=== PATIENT | female | born 1930 | race Caucasian/White ===

== ENCOUNTER → 2016-12-28 | Outpatient (CLI) | payer MEDICARE, OTHER ==
[~2016-12-28] MED LIST: AMIO200T2 PO; AMLO5TAB PO; ASPI325T PO; CYCL32DR2 OP; FAMO40TA7 PO; FISH1CAP10 PO; HALO0.5T PO; HYDR12.530 PO; LEVO75TA9 PO; LISI-621 PO; OLAN2.5T3 PO; SENN-152 PO
== END ==
LOC: LABNH.A215 00:09
PROVIDERS: ATTEND Internal Medicine Cardiovascular Disease
DX: E61.2 Magnesium deficiency (principal)
CPT/HCPCS: 36415

== ENCOUNTER 2017-01-03 04:07 | Inpatient (IN) | payer MEDICARE, OTHER ==
[2017-01-03] VITALS (9 sets, daily range): BP systolic 137–150; BP diastolic 58–85; PULSE 43–66; RESP 12–21; TEMP 95.8–97.4; O2SAT 93–98; Ht 160 cm; Wt 64.0 kg
[~2017-01-03] VITALS: Ht 160 cm; Wt 64.0 kg
[~2017-01-03 04:07] MED LIST changes: -AMIO200T2 PO; -OLAN2.5T3 PO
[2017-01-03] MEDS ORDERED: OLANZAPINE 5 MG TABLET PO ONE (04:15)
--- NOTE | 2017-01-03 04:21 | NUR ---
BROTHER PT BROTHER HERE AT BEDSIDE
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
--- NOTE | 2017-01-03 04:32 | NUR ---
LAB LAB AT BEDSIDE FOR BLOOD DRAW
[2017-01-03 04:37] LABS: BASOPHILS % (AUTO) 0.2 % (0-2); EOSINOPHILS # (AUTO) 0.1 T/MM3 (0-0.5); EOSINOPHILS % (AUTO) 1.4 % (0-4); HGB - HEMOGLOBIN 12.5 GM/DL (12-16); IMMATURE GRANULOCYTE # (AUTO) 0.02 T/MM3 (0.00-0.03); IMMATURE GRANULOCYTE % (AUTO) 0.4 % (0.0-0.5); LYMPHOCYTES % (AUTO) 40.6 % (23-45); MEAN CORPUSCULAR HGB 31.9 UUG (26-34); MEAN CORPUSCULAR HGB CONC(MCHC 33.8 GM/DL (31-37); MEAN CORPUSCULAR VOLUME 94.4 UM3 (80-100); MEAN PLATELET VOLUME 10.4 UM3 (9.4-12.4); MONOCYTES # (AUTO) 0.4 T/MM3 (0-0.8); MONOCYTES % (AUTO) 7.3 % (0-9.0); NEUTROPHILS #(AUTO)-ABSOLUTE 2.5 T/MM3 (1.8-7.7); NEUTROPHILS % (AUTO) 50.1 % (33-66); RED BLOOD COUNT 3.92 M/MM3 (4.00-5.20)
[2017-01-03] MEDS ORDERED: AMIO200T2 PO (04:45)
[2017-01-03 04:47] LABS: ACETAMINOPHEN < 10 UG/ML (10-30); ALBUMIN 3.7 G/DL (3.5-5.0); ALBUMIN/GLOBULIN RATIO 1.4 RATIO (1.1-2.2); ALKALINE PHOSPHATASE 154 U/L (38-126); ALT (SGPT) 77 U/L (9-52); ANION GAP 4 MEQ/L (5-15); AST (SGOT) 47 U/L (14-36); BUN/CREATININE RATIO 19 RATIO (6-26); CALCIUM 8.7 MG/DL (8.4-10.2); CHLORIDE 108 MEQ/L (98-107); CO2 - CARBON DIOXIDE 29 MEQ/L (22-30); CREATININE 1.3 MG/DL (0.7-1.2); ETHANOL <10 MG/DL (<10); GLOMERULAR FILTRATION RATE 39; GLUCOSE 98 MG/DL (65-110); POTASSIUM 4.6 MEQ/L (3.6-5); SALICYLATE 2.9 MG/DL (2-20); SODIUM 141 MEQ/L (134-144); TOTAL PROTEIN 6.4 G/DL (6.3-8.2)
--- NOTE | 2017-01-03 04:53 | NUR ---
STATUS PT IS LAYING ON THE CART WITH EYES CLOSED PT IS COOPERATIVE, BUT UPSET SHE IS HERE BROTHER REMAINS AT BEDSIDE
--- NOTE | 2017-01-03 04:56 | NUR ---
SCREENING [facility] STAFF HERE TO SCREEN PT
--- NOTE | 2017-01-03 05:10 | NUR ---
MED PT GIVEN PO ZYPREXA WITH WATER TAKES MED EASILY BROTHER REMAINS AT BEDSIDE
--- NOTE | 2017-01-03 05:12 | NUR ---
COMFORT WHEN ASKED PT IF SHE COULD URINATE FOR LAB SPEC SHE TOLD STAFF "NOT RIGHT NOW" WHEN ASKED IF SHE WOULD BE WILLING TO TRY SHE REPEATED THE "NOT RIGHT NOW" IN A MUCH FIRMER VOICE. LIGHTS DIMMED AND OFFERED PT SECOND BLANKET, BUT STATES ONE IS FINE
--- NOTE | 2017-01-03 05:20 | NUR ---
REST PT RESTING QUIETLY WITH EYES CLOSED
[2017-01-03 05:33] LABS: THYROID STIM HORMONE-TSH 2.92 MIU/L (0.47-4.68)
[2017-01-03] MEDS ORDERED: OLAN2.5T3 PO (05:50)
--- NOTE | 2017-01-03 05:56 | NUR ---
REST PT CONTINUES TO REST QUIETLY WITH EYES CLOSED RESP EVEN AND UNLABORED
--- NOTE | 2017-01-03 06:04 | NUR ---
REPORT REPORT GIVEN TO SIMA
--- NOTE | 2017-01-03 08:02 | NUR ---
UPDATE [facility] HAS ACCEPTED THE PATIENT. WAITING FOR ROOM ASSIGNMENT. BROTHER JUST LEFT, ASKED TO BE CALLED THEN PT MOVED TO THE ROOM. PT RESTING, ASLEEP, CALL LIGHT IN REACH, VITAL SIGNS NOTED.
--- NOTE | 2017-01-03 08:34 | NUR ---
TRANSFER HOUSE SUP MOVING PT TO [facility] AT THIS TIME.
--- NOTE | 2017-01-03 08:35 | NUR ---
ADMISSION NOTE 86 year old female was admitted to [facility] unit today at 0835 to room 195 from [facility], she lives in [place]. Patient arrived via WC by [facility] staff, family was not present during admission. Pt was unsteady had a weak gait, during transfer, would not open her eyes all the way, appeared lethargic. Pt is AO x 2, speech is mumble and difficult to understand. Patient is dressed appropriate for season, cleaned and well groomed. Pt has glasses and hearing aids bilateral. Pt has her own walker. Pt has a flat affect. Pt states reason for admission " I dint know i was coming to the hospital." Pt has been in our unit in the month of November.
--- NOTE | 2017-01-03 10:05 | NUR ---
brother called brother, updated information that pt was moved to [facility] unit.
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
--- NOTE | 2017-01-03 11:48 | GENHPPDOC ---
[facility] HPI 01/03/17 Time of Service: 11:15 Start Time: 11:15 Stop Time: 11:45 >50% of this visit spent in counseling/coordination care. Chief Complaint: "Im tired History of Present Illness HPI: 86 y/o CF with a hx of dementia who was recently on the [facility] unit from 12/05/16 until 12/14/16. At that time pt was diagnosed with Delirium and probable dementia and was placed on Haldol. Pt was recently put on Amiodarone by her pleat taper and her Haldol was stopped due to fear of drug interactions. Over the last few days the pt has become increasingly paranoid and delusional and has been having visual hallucinations. It seems in the past the PRN Haldol had kept these symptoms fairly well controlled. Pt was given Zyprexa in the ED at around 0400. On face to face the pt is resting in bed. She is hard to awake and is not able to participate in the interview. PT is alert and oriented to self. She states she knows she is in the hospital but is not able to answer any other orientation questions. She denies any pain. PSYCH ROS: Unable to obtain at this time. According to report the pt has been increasingly paranoid with VH over the last couple of days since stopping PRN Haldol. Past Medical History Past Medical History Restless legs CAD HTN Fibromyalgia Hypothyroid Surgical History Patient's Surgical History: CABG 2001 CEA 2011 cholecystectomy DANY hemorrhoid surg vein stripping (?) Current Medications Home Meds Active Scripts Olanzapine (Zyprexa) 2.5 Mg Tablet, 1 TAB PO HS, #30 TAB 1 Refill Prov:ANGELA GARCIA MD 01/03/17 Reported Medications Amiodarone HCl (Amiodarone HCl) 200 Mg Tablet, 200 MG PO DAILY, TAB 01/03/17 Lisinopril (Lisinopril) 20 Mg Tablet, 20 MG PO DAILY for HYPERTENSION 12/17/16 [place]-3 Fatty Acids/Fish Oil (Fish Oil Concentrate Softgel) 1 Each Capsule, 1 CAP PO BID 12/17/16 Sennosides/Docusate Sodium (Senna Plus Tablet) 1 Tab Tablet, 1 TAB PO BID 12/17/16 Famotidine (Famotidine) 40 Mg Tablet, 40 MG PO DAILY for Antacid 12/02/16 Aspirin (Aspirin) 325 Mg Tablet, 325 MG PO HS for Anticoagulation 12/02/16 Cyclosporine (Restasis) 32 Ea [place], 1 DROP OP BID for Eye irritation/ dryness 09/07/13 Levothyroxine Sodium (Levothyroxine Sodium) 75 Mcg Tablet, 75 MCG PO DAILY for Hypothyroidism 09/07/13 Amlodipine (Norvasc) 5 Mg Tablet, 5 MG PO DAILY for INCREASED BLOOD PRESSURE, TAB 09/07/13 Allergies: Coded Allergies: Nitrofurantoin Macrocrystal (Verified Allergy, Unknown, 01/03/17) nitrofurantoin (Verified Allergy, Unknown, 01/03/17) Family History Family History: Unable to obtain due to mental status changes. Vaccines July Social History Smoking Status: Never smoker Does patient use chewing tobac: No Second Hand Exposure: No Substance Use Type: does not use Alcohol Intake: none Marital Status: Housing: senior care Advance Directives: Yes Full Code Review of Systems Unable to Obtain ROS Due to: clinical condition Generations Exam Vitals Vital Signs Date Time Temp Pulse Resp B/P Pulse Ox O2 Delivery O2 Flow Rate FiO2 01/03/17 08:34 97.8 58 18 154/77 97 Room Air Physical examination performed by the hospitalist. Height (Feet): 5 Height (Inches): 3.00 Mental Status Exam Muscle Strength/Tone: Weak Dressing: Casual Grooming: Fair Attitude: Cooperative Motor Activity: Retardation Eye Contact: Fair Speech: Slowed Volume: Soft Rhythm: Slurred Sensory: Alert Orientation: Oriented to person Mood: Neutral Affect: Congruent Rate of Thoughts: Delayed Thought Organization: [place] Associations: Loose-associations Abstract Reasoning: Impaired, concrete Thought Content: Delusions Perception/Psychotic: Psychotic Current Hallucinations: Visual Attention Span/Concentration: Inattentive Fund of Knowledge: Poor fund of knowledge Memory: Poor-immediate, Poor-recent Suicidal Ideation: None Homicidal Ideation: None Insight: Poor Judgment: Poor Impulse Control: Poor Laboratory Tests Test 01/03/17 04:32 White Blood Count 5.0T/MM3 Red Blood Count 3.92M/MM3 Hemoglobin 12.5GM/DL Hematocrit 37.0% Mean Corpuscular Volume 94.4UM3 Mean Corpuscular Hemoglobin 31.9UUG Mean Corpuscular Hemoglobin Concent 33.8GM/DL RDW Standard Deviation 48.8FL Platelet Count 147T/MM3 Mean Platelet Volume 10.4UM3 Immature Granulocyte % (Auto) 0.4% Neutrophils (%) (Auto) 50.1% Lymphocytes (%) (Auto) 40.6% Monocytes (%) (Auto) 7.3% Eosinophils (%) (Auto) 1.4% Basophils (%) (Auto) 0.2% Absolute Immature Granulocyte (auto 0.02T/MM3 Absolute Neutrophils (auto) 2.5T/MM3 Absolute Lymphocytes (auto) 2.0T/MM3 Absolute Monocytes (auto) 0.4T/MM3 Absolute Eosinophils (auto) 0.1T/MM3 Absolute Basophils (auto) 0.0T/MM3 Turbidity < 20 Sodium Level 141MEQ/L Potassium Level 4.6MEQ/L Chloride Level 108MEQ/L Carbon Dioxide Level 29MEQ/L Anion Gap 4MEQ/L Blood Urea Nitrogen 24.0MG/DL Creatinine 1.3MG/DL Glomerular Filtration Rate Calc 39 BUN/Creatinine Ratio 19RATIO Glucose Level 98MG/DL Calculated Osmolality 275MOSM/KG Calcium Level 8.7MG/DL Total Bilirubin 0.60MG/DL Icterus Index < 2 Aspartate Amino Transf (AST/SGOT) 47U/L Alanine Aminotransferase (ALT/SGPT) 77U/L Alkaline Phosphatase 154U/L Total Protein 6.4G/DL Albumin 3.7G/DL Globulin 2.7G/DL Albumin/Globulin Ratio 1.4RATIO Thyroid Stimulating Hormone (TSH) 2.92MIU/L Chemistry Specimen Hemolysis < 15 Salicylates Level 2.9MG/DL Acetaminophen Level < 10UG/ML Alcohol, Quantitative <10MG/DL Assessment and Plan (1) Delirium due to multiple etiologies Assessment: Suspect Plan: Will order at EKG to check QT. Will hold Haldol and other antipsychotics at this time. Team will discuss case with pleat taper on Wednesday. Would hope to get pt off of Amiodarone if possible but if not possible then would recommend Latuda or Abilify as these seem to have the best evidence for not prolonging QT. (2) Hypothyroid (3) Major neurocognitive disorder Assessment: Suspect (4) Unspecified schizophrenia, unspecified condition Will order at EKG to check QT. Will hold Haldol and other antipsychotics at this time. Team will discuss case with pleat taper on Wednesday. Would hope to get pt off of Amiodarone if possible but if not possible then would recommend Latuda or Abilify as these seem to have the best evidence for not prolonging QT. MARYLIN SEWELL MD Jan 03, 2017 11:48
[2017-01-03] MEDS ORDERED: LORAZEPAM 2 MG/ML INJECTION IM PRN (12:00)
[2017-01-03] MEDS ORDERED: LORAZEPAM 0.5 MG TABLET PO PRN (12:00)
[2017-01-03] MEDS ORDERED: PRN ORDERS MC (12:00)
[2017-01-03] MEDS: LORAZEPAM INTENSOL 1mg/0.5ml ORAL SOLUTION SL PRN ×2 (14:12→20:25)
--- NOTE | 2017-01-03 14:12 | NUR ---
PRN Pt has been restless, agitated, trying to get out of bed and recliner with out any help, Pt is very unsteady and has her eye clothes most of the time, Pt has been difficult to redirect, Pt was offered refreshment, and patient refused to take any. Pt was taken to the bathroom, Pt continue to be difficult to redirect, states she just wants to go. Pt has been having visual hallucinations picking at the air and trying to pear picker unseen things from the floor. Pt has been constant visual observation while she is awake. Ativan Intensol 0.5mg PRN was given at 1412. Will continue to monitor for behaviors, needs or concerns.
--- NOTE | 2017-01-03 16:00 | NUR ---
PRN follow up Pt continues to be restless, agitated, continues to get up with out assistance, gait is weak and unsteady, continues to be difficult to redirect, PRN medications was not effective. Pt continues to be constant visual observation while awake. Will continue to monitor.
[2017-01-03] MEDS: ACETAMINOPHEN 325 MG TABLET PO PRN (18:17)
--- NOTE | 2017-01-03 19:34 | NUR ---
SMOKING STATUS Pt is a NON SMOKER
--- NOTE | 2017-01-03 19:34 | NUR ---
SUMMARY Pt is AO x 2. Pt has been cooperative with cares, Pt has been refusing to eat or drink, this evening we were able to convince her to drink a mighty shake. Pt did not sleep this shift, she has been restless throughout the day, tries to get out of bed and recliner with out assistance and does not used call light appropriate. Speech is difficult to understand, Pt has unsteady gait, in the morning she was able to walk to the bathroom x 1 assist with he FWW, In the afternoon and evening she was weak and when she attempted to stand to her knee would bend so patient sat back down in the WC and needed assistance of 2 to transfer and for cares. Pt has been on constant visual observation throughout the shift. Pt appears to be tired and sleepy. Pt is currently in the day room, staff is with her, will continue to monitor for behaviors needs or concerns.
[2017-01-03] MEDS: OMEGA-3 ACID ESTERS 1 G CAPSULE PO SCH (19:48)
[2017-01-03] MEDS: ASPIRIN 325 MG TABLET PO SCH (19:48)
[2017-01-03] MEDS: CycloSPORINE 0.05% Eye Drops 0.4ml DROPERETTE BOTH EYES SCH (19:48)
[2017-01-03] MEDS: SENNA + DOCUSATE TAB PO SCH (19:48)
--- NOTE | 2017-01-03 20:35 | NUR ---
PRN Pt displayed increased restlessness by continuously trying to get out of her bed on her own, causing safety issues by increasing risk for falls. Pt was not redirectable. Pt was repeatedly placed back in bed each time. PRN Ativan Intensol 0.5 mg given at 2024 for increased restlessness. Pt is on constant visual observation with an extra staff member for now until pt calms. Bed rails up x 2 and alarm on. Will continue to monitor
--- NOTE | 2017-01-03 21:45 | NUR ---
PRN f/u Pt sleeping comfortably. No longer exhibits signs of restlessness or trying to get out of bed on her own. PRN medication successful. Will continue to monitor
--- NOTE | 2017-01-04 00:07 | NUR ---
Chart Check 24 hour chart check completed
--- NOTE | 2017-01-04 00:43 | NUR ---
Mid shift status Pt was sitting in day room in recliner at beginning of shift. Pt was restless while sitting in recliner, fidgeting and attempting to slide down out of chair. Pt alert to person. Up assist x 2 to WC. Pt presents with mumbled speech and keeps her eyes closed when speaking to her. Pt denied pain. Pt presents with bradycardia with pulse of 43. Past 3 EKG shows pt as bradycardic. Pt is weak and unsteady and unable to walk at this time with her walker. Have used WC to transfer with 2 assist. Difficult to communicate with pt this evening as patient is difficult to understand as she spoke very little and when she did, was mumbled and garbled. Pt compliant with her HS meds, taking crushed at HS. After pt was placed in bed, she became increasingly restless, continuously trying to get out of bed, which caused concern for safety, increasing risk for falls. Redirected and placed pt back in bed each time. Pt would then start scooting herself down to the foot of the bed to where her legs would hang over the side of bed. PRN Ativan Intensol 0.5 mg given for pt increased restlessness. Continuous visual observation required by extra staff at that time until pt calmed and also for pt safety. Staff sat with pt for over an hour until pt fell to sleep. Currently sleeping. Bed rails up x 2 and alarm on. Will continue to monitor
--- NOTE | 2017-01-04 00:43 | NUR ---
Chart Check 24 hour chart check completed
[2017-01-04] MEDS: LORAZEPAM INTENSOL 1mg/0.5ml ORAL SOLUTION SL PRN (02:33)
--- NOTE | 2017-01-04 02:40 | NUR ---
PRN Pt woke and was becoming increasingly restless again. Setting off bed alarm with attempts to get out of bed or lifting legs over the rail. Pt was once again on constant visual observation with additional staff member for safety precautions. PRN Ativan Intensol was administered at 0230 for pt restlessness. Bed rails up x 2 and alarm on. Will continue to monitor
--- NOTE | 2017-01-04 03:45 | NUR ---
PRN f/u Pt continues to be restless at this time, but not as much as when given the PRN. PRN has shown some affect. Pt continues to be monitored by additional staff with constant visual observation at this time. Bed rails up x 2 and alarm on. Will continue to monitor
[2017-01-04] MEDS: LEVOTHYROXINE 75 MCG TABLET PO SCH ×2 (05:38→05:48)
[2017-01-04] MEDS: ACETAMINOPHEN 325 MG TABLET PO PRN ×2 (05:39→05:47)
--- NOTE | 2017-01-04 06:21 | NUR ---
Summary Pt slept 4.25 hours this shift. Pt alert to person. Up assist x 2 to WC. Pt compliant with HS meds but not with morning meds as pt kept falling asleep when attempting to administer. Pt has grimacing as if in pain this morning. Attempted to give Tylenol with morning meds but without success. Pt has been restless this shift, trying to get out of bed on own. PRNs given. Ativan Intensol 0.5 mg at 2024 and again at 229. Medication seemed to be more effective at the first administration than the second as pt continues to be restless, attempting to throw legs off side of bed. Pt has been on constant visual observation at different intervals this shift for safety precautions to prevent fall risk. Pt speech is incomprehensible as she does have mumbled speech. Pt has not displayed any verbal or physical aggression. No agitation or behaviors. Only increased restlessness noted. Pt has been reaching and grasping for objects (VH). Pt does not open her eyes when speaking to her. Has kept eyes closed the duration of time she has been awake. Pt currently lying in bed awake, continuing to stir around in bed. At this time there is additional staff in room monitoring pt. Bed rails up x 2 and alarm on. Will continue to monitor.
[2017-01-04 08:18] VITALS: BP 97/36; PULSE 46; RESP 10; TEMP 96.5; O2SAT 93
--- NOTE | 2017-01-04 08:39 | NUR ---
AM NURSE SUMMARY PT IN BED AT THIS ASSESSMENT. UNABLE TO ANSWER QUESTIONS OR FOLLOW COMMANDS. PT HAS MULTIPLE TIMES ATTEMPTED TO GET OUT OF BED BY SCOOTING SELF DOWN AND SITTING ON BEDSIDE. PT ASSISTED ONTO BESIDE AND ASSESSMENT COMPLETED CHARTED. PT AV AREA CLEANSED NOTED NO RASH OR REDNESS AT THIS TIME. URINE WITH FOUL ORDER MILI VIVAS MADE AWARE. ORAL CARE ATTEMPTED PT CLENCHES TEETH WATER AND MIGHTY SHAKE OFFERED PT CLENCHES TEETH AND TURNS HEAD. AM MEDS WERE NOT GIVEN DUE TO THIS. UP TO RECLINER AND AT BREAKFAST TABLE WILL NOT EAT CONTINUES TO CLENCH TEETH AND TURN HEAD. PT FALLS ASLEEP QUICKLY. VITALS TAKEN NOTED HEART RATE 46 AND LOW BP MILI VIVAS MADE AWARE.
[2017-01-04] MEDS ORDERED: FAMOTIDINE 40 MG TABLET PO SCH (09:00)
[2017-01-04] MEDS ORDERED: LISINOPRIL 20 MG TABLET PO SCH (09:00)
[2017-01-04] MEDS ORDERED: AMIODARONE 200 MG TABLET PO SCH (09:00)
[2017-01-04] MEDS: OMEGA-3 ACID ESTERS 1 G CAPSULE PO SCH ×2 (09:00→21:00)
[2017-01-04] MEDS: AMLODIPINE 5 MG TABLET PO SCH (09:00)
[2017-01-04] MEDS: CycloSPORINE 0.05% Eye Drops 0.4ml DROPERETTE BOTH EYES SCH ×2 (09:00→21:00)
[2017-01-04] MEDS: SENNA + DOCUSATE TAB PO SCH ×2 (09:00→21:00)
--- NOTE | 2017-01-04 09:08 | PNPDOC ---
Subjective Date DATE: 01/04/17 TIME: 08:57 Subjective Ethel was sitting at the breakfast table, but was not interactive. Her eyes remained closed, and she would start snoring. She did not respond to verbal or tactile stimulation. She has been restless and agitated, and seems to be a little bit more calm this morning. She was not able to eat or drink anything this morning. Her nurse states that she was able to drink two mighty shakes yesterday. She has been reaching and grabbing towards her groin, and her nurse denies seeing a rash or abnormalities during nahid-care this morning. She has been tachycardic, as low as 34. Objective Vital Signs Vital signs Vital Signs Date Time Temp Pulse Resp B/P Pulse Ox O2 Delivery O2 Flow Rate FiO2 01/04/17 08:18 46 10 01/04/17 08:18 96.5 97/36 93 Room Air Height (Feet): 5 Height (Inches): 3.00 Weight (Kilograms): 66.000 General Comments Lethargic, unable to hold a conversation. She does not open her eyes or meaningfully respond to verbal or tactile stimulation. Respiratory (Brief) Respiratory: FOUND: clear all barajas, equal bilaterally Cardiovascular (Brief) Cardiac: FOUND: other (bradycardic, heart rate was 48 at time of exam) Abdomen (Brief) Abdominal: FOUND: soft, NOT FOUND: tender Extremities (Brief) Extremity : Side: Bilateral Extremity Finding: NOT FOUND: edema Musculoskeletal (Brief) Musculoskeletal: NOT FOUND: deformity Integumentary (Brief) Integumentary: FOUND: dry, warm Psychiatric (Brief) Psychiatric: NOT FOUND: alert, oriented Laboratory Laboratory Laboratory Tests 01/03/17 04:32 Laboratory Tests 01/03/17 04:32 Assessment & Plan Problems: (1) Bradycardia Status: Chronic (2) Bigeminy Status: Chronic (3) Unspecified schizophrenia, unspecified condition Status: Acute (4) Cognitive and behavioral changes Status: Acute (5) KISHA (acute kidney injury) Status: Acute Assessment & Plan: Acute present on admission- Superintendent Renting Managing 1.3. Baseline- 1.0 (6) Elevated liver enzymes Status: Chronic Assessment & Plan: Present on admission, AST- 47, ALT- 77. (7) CAD (coronary artery disease) of artery bypass graft Status: Chronic (8) Restless legs Status: Chronic (9) Carotid artery disease Status: Chronic (10) HTN (hypertension) Status: Chronic (11) Fibromyalgia Status: Chronic (12) Hypothyroid Status: Chronic Assessment Plan/Intensity of Service Bradycardia persists - discussed with Dr. Canales - offered additional hx - pt has been becoming more forgetful and nervous over the last year; also notes increasing depression since the of her . Does not believe bradycardia is causing lethargy, eve. considering perfusing BP readings. Recommends to hold amiodarone for now (she started it b/c when she was in the office Ethel was in bigeminy in the 40s). Dr. Canales wanted to set her up with [facility] to measure how much time she was in bigeminy vs. bradycardia. Next step would be a pacemaker, but given her rapid decline this may not be in her best interest. She will come and see the patient on Wednesday. She would prefer updates on status and plans of care. Will discuss goals of care with her brother. Concerned about declining mental status - may need IVF. Unable to take anything oral this morning due to mental status. Straight cath to check UA and UDS Will discuss further orders with Dr. Rivas. Later in the morning I joined Rodger Nolasco, the carlos TEJEDA, in a phone conversation with Guerita, Ethel's daughter and CRISTINA. I relayed to her the information from Dr. Canales, and her mother's current mental status. She stated that her mother would not want to have any procedures for her heart if her mind wasn't working properly. Her mother told her that her biggest fear was dementia , and now she is "living her nightmare". She did, however, report that there does seem to be some correlation with low HR and sleepiness - when she was here visiting Ethel at , she became more sleepy and started slurring her words when her heart rate decreased. She understands that at this time, the heart rate medication makes it too risky to continue the Haldol, which had been effective in controlling her hallucinations before. Guerita approved giving IVF at this time , if indicated. If her mental status improves, she may consent to a pacemaker, but would look towards Dr. Canales's and Dr. Hernandez's recommendations as well. She also would like to change her mother's code status to DNR. Ethel was able to complete a living will before she was discharged from [facility] the last time , so we do know that she would not want a G-tube. Guerita called me back around 1345 to inquire about antipsychotic treatment plan and concern about dehydration. I informed her that I haven't seen any orders, but the psychiatrist had mentioned a couple other medications that we might consider. Given her slightly low BP and poor oral intake will give 1L of IVF to see if this has an effect on her mental status and hemodynamics. Greater than 30 minutes was spent discussing her care with staff, physicians, daughter, and coordinating care. Code Status Full Code Hospital Course Summary Disclaimer The hospital course summary below is not to be considered part of the above Progress Note. Hospital Course Summary 01/03/17 Agree with admission to [facility] for acute behavioral disturbances and changes. In reviewing old records and longterm charting Haldol has been given intermittently to patient over the last 3 weeks since her hospitalization. Haldol needs to be avoided since patient is on amiodarone. May need to speak with patient's microsoft infrastructure consultant, Dr. Canales if there is further questions regarding Amiodarone use and questionable tapering. In light of elevated renal function on admission will hold Lisinopril. Will need to monitor blood pressure carefully and may need to increase Norvasc to 10mg if BP is elevated. In regards to elevated LFTS will stop Pepcid as this can hepatitis. Will monitor serial CMP lab to follow. Encourage oral fluid. She may benefit from some IV fluids given acute renal function. She did respond well to IV fluids during per previous hospitalization. I have independently evaluated and examined this patient. I reviewed the chart, the patient's history, and the DISPATCH MACHINE RUNNER's documented findings as above. We discussed and formulated the assessment and plan as above with additions as below: Mrs. Lund was resting comfortably in her room when seen. She had been sedated earlier in the day and did not respond to questions although mumbled occasionally and at one point clearly said "3". Current records and past records have been reviewed-visual hallucinations reported since Haldol discontinued with onset of restorationist auditory hallucinations prior to admission. Patient became physically aggressive with staff at the longterm prompting ER evaluation and hospitalization. It is noted that the patient was bradycardic during her last admission but when seen by Dr. Canales after discharge she was found to have episodes of bigeminy which were thought to account for previously reported bradycardia and amiodarone was initiated at that time. On examination the patient responds to voice mumbling slightly and follows occasional commands gripping my fingers weakly but symmetrically. Gaze is conjugate and extraocular muscles intact, facial structures are symmetric. Respirations are nonlabored and breath sounds clear anteriorly. Cardiac rhythm is regular. The patient withdraws all 4 extremities to palpation and does so with relatively symmetric power. No tremors are present. EKG has been reviewed by myself demonstrating marked sinus bradycardia with heart rate of 34, subsequently heart rate has been improved by palpation with heart rates in the 50s. Laboratory data reviewed, liver enzymes slightly elevated but minimally changed from last admission. Hold amiodarone in the morning until can review with Dr. Canales. In addition to above diagnoses please add: #1 sinus bradycardia #2 recent bigeminy 01/04/17 Bradycardia persists - discussed with Dr. Canales - offered additional hx - pt has been becoming more forgetful and nervous over the last year; also notes increasing depression since the of her . Does not believe bradycardia is causing lethargy, eve. considering perfusing BP readings. Recommends to hold amiodarone for now (she started it b/c when she was in the office Ethel was in bigeminy in the 40s). Dr. Canales wanted to set her up with [facility] to measure how much time she was in bigeminy vs. bradycardia. Next step would be a pacemaker, but given her rapid decline this may not be in her best interest. She will come and see the patient on Wednesday. She would prefer updates on status and plans of care. Will discuss goals of care with her brother. Concerned about declining mental status - may need IVF. Unable to take anything oral this morning due to mental status. Straight cath to check UA and UDS Later in the morning I joined Rodger Nolasco, the carlos TEJEDA, in a phone conversation with Ethel Dexter's daughter and DPOA. I relayed to her the information from Dr. Canales, and her mother's current mental status. She stated that her mother would not want to have any procedures for her heart if her mind wasn't working properly. Her mother told her that her biggest fear was dementia , and now she is "living her nightmare". She did, however, report that there does seem to be some correlation with low HR and sleepiness - when she was here visiting [place] at , she became more sleepy and started slurring her words when her heart rate decreased. She understands that at this time, the heart rate medication makes it too risky to continue the Haldol, which had been effective in controlling her hallucinations before. Guerita approved giving IVF at this time , if indicated. If her mental status improves, she may consent to a pacemaker, but would look towards Dr. Canales's and Dr. Hernandez's recommendations as well. She also would like to change her mother's code status to DNR. Ethel was able to complete a living will before she was discharged from [facility] the last time , so we do know that she would not want a G-tube. Guerita called me back around 1345 to inquire about antipsychotic treatment plan and concern about dehydration. I informed her that I haven't seen any orders, but the psychiatrist had mentioned a couple other medications that we might consider. Given her slightly low BP and poor oral intake will give 1L of IVF to see if this has an effect on her mental status and hemodynamics. MILI VIVAS APRN Jan 04, 2017 09:01
--- NOTE | 2017-01-04 11:45 | NUR ---
INFO PRINT PRESS OPERATOR--PSH/code status [facility] and Laverne Day APRN, made phone call to pt's daughter/DPOA-HC (Guerita Karin). Laverne provided update on pt's overall medical condition and stressed that pt. had declined significantly over past few days. Explained that pt. has periods of restlessness, keeps her eyes closed and does not appear to have the ability to communicate or take anything in by mouth. Laverne shared her conversation with pt's pbx inspector and the conclusion that pt. needs a pacemaker but is not a good candidate in her current mental state. This SW asked daughter to clarify pt's code status and she said she wanted to make the pt. a DNR. Guerita Karin ([facility]) gave permission for this SW to sign her name on DNR sheet. She said her mother's biggest fear was that she would develop dementia and experience all the associated issues. The daughter was asked about use of an IV to administer fluids and/or medication. The daughter would like to try an IV. If pt. pulls it out, she would like to be notified and will re-evaluate that decision. Pt. had previously signed a Living Will and daughter is willing to support that decision by not allowing a feeding tube. [facility] updated information on psychosocial history (PSH). The daughter said Dr. Hernandez was exploring possibility that pt. had Lewy Body dementia. She also thought Dr. Hernandez might be up to hospital to visit in the patient in next few days. The discharge plan is for pt. to return to [place] for continued care. [facility] reviewed contents of proposed [place] plan. Daughter gave permission to sign her name in agreement on the form. Addendum: 01/04/17 at 1157 by VICKEY TEJEDA Amended: Links added.
[2017-01-04] MEDS ORDERED: NORMAL SALINE 1,000 ML IV SCH (13:45)
--- NOTE | 2017-01-04 13:46 | NUR ---
URINE SCREEN PT WAS TAKEN TO HER ROOM FOR STRAIGHT CATH. LAB WAS CALLED TO COME COLLECT THE URINE FOR A DRUG SCREEN. PT INCONTINENT OF BOTH BOWEL AND URINE MOMENTS BEFORE LAB ARRIVED. URINE DRUG SCREEN NOT TAKEN AT THIS TIME.
[2017-01-04 16:00] VITALS: BP 97/36; PULSE 46; RESP 10; TEMP 96.5; O2SAT 93
--- NOTE | 2017-01-04 16:41 | NUR ---
NEERAJ CM SPOKE WITH CHRISTINA FROM [facility] AND PT WILL RETURN AT TIME AT D/C. CHRISTINA AWARE TO CALL CM IF NEEDS ARISE.
[2017-01-04 17:02] LABS: BLOOD, URINE NEGATIVE (NEGATIVE); COLOR,URINE YELLOW (YELLOW); LEUKOCYTE ESTERASE ,URINE NEGATIVE (NEGATIVE); NITRITE,URINE NEGATIVE (NEGATIVE); UROBILINOGEN,URINE 0.2 EU/DL (NORMAL)
[2017-01-04 17:05] VITALS: BP 98/41; PULSE 46; RESP 15; TEMP 97.5; O2SAT 95
[2017-01-04 17:10] LABS: AMPHETAMINE SCREEN,URINE NEGATIVE; BARBITURATE SCREEN,URINE NEGATIVE; BENZODIAZEPINES SCREEN,URINE NEGATIVE; CANNABINOID SCREEN,URINE NEGATIVE; COCAINE SCREEN,URINE NEGATIVE; METHADONE SCREEN, URINE NEGATIVE; METHAMPHETAMINE SCREEN, URINE NEGATIVE; OPIATE SCREEN,URINE NEGATIVE; PHENCYCLIDINE SCREEN,URINE NEGATIVE; TRICYCLIC ANTIDEPRESSANT,URINE NEGATIVE
[2017-01-04 17:12] VITALS: BP 98/41; PULSE 46; RESP 15; TEMP 97.5; O2SAT 95
--- NOTE | 2017-01-04 17:16 | NUR ---
HEARING AID TECHNICIAN Pt's brother, Zach, came to visit pt. He was surprised at how much she has deteriorated in just a few days. He said she was at least able to converse with him two days ago. Pt. did not respond to any of her brother's commands or questions. She was slightly restless in the chair in day room and kept her eyes closed for the entire session. Brother was going to go back and call her children and give them an update.
--- NOTE | 2017-01-04 18:16 | NUR ---
SHIFT SUMMARY PT CONTINUES WITH PREVIOUS BEHAVIORS. PT HAD INCREASE ACTIVITY WITH ARMS WAVING. LAB CALLED AND PATIENT TAKEN TO ROOM FOR STRAIGHT CATH. PT HAD 350 CC STRAW COLORED URINE. PT BECAME IMMEDIATELY LESS AGITATED PT HAD TWO VISITORS TODAY. KEPT EYES CLOSED WHILE BOTH CHATTED AND ASKED HER QUESTIONS NO RESPONSE FROM PT. REASSURANCE PROVIDED TO VISITORS
[2017-01-04 20:00] VITALS: BP 188/72; PULSE 49; RESP 14; TEMP 95.9; O2SAT 97
[2017-01-04] MEDS: ASPIRIN 325 MG TABLET PO SCH (21:00)
--- NOTE | 2017-01-04 23:45 | NUR ---
Status Pt was cooperative with assessment. She was lethargic when coming on to shift, she would respond to touch but not to voice. Pt had medications non administered due to lethargy. No S/S of behaviors at this time. Pt has IVF running @ 100ml/Hr. Pt is currently sleeping in recliner in her room with chair alarm activated.
--- NOTE | 2017-01-05 00:05 | GENPN ---
[facility] Subjective Date DATE: 01/04/17 TIME: 23:44 Subjective/Severity of Illness Medications Current Medications Medications (Trade) Dose Ordered Sig/Kelley Start Time Stop Time Status Last Admin Dose Admin Amiodarone HCl (Pacerone) 200 mg DAILY 01/04/17 09:00 Future Hold Amlodipine Besylate (Norvasc) 5 mg DAILY 01/04/17 09:00 Aspirin (ASA) 325 mg HS 01/03/17 21:00 01/03/17 19:48 325 MG Cyclosporine (Restasis Eye Drops) 1 drop BID 01/03/17 21:00 01/04/17 09:00 1 DROP Famotidine (Pepcid) 40 mg DAILY 01/04/17 09:00 Future Hold Levothyroxine Sodium (Synthroid) 75 mcg ACB 01/04/17 06:30 Lisinopril (Prinivil) 20 mg DAILY 01/04/17 09:00 Future Hold Senna/Docusate Sodium (Senna Plus) 1 tab BID 01/03/17 21:00 01/03/17 19:48 1 TAB [id number] Ethyl Esters (Lovaza) 1 g BID 01/03/17 21:00 01/03/17 19:48 1 G Miscellaneous Medication (May use PRN orders) 1 PRN PRN 01/03/17 12:00 Lorazepam (Ativan) 0.5 mg Q6H PRN 01/03/17 12:00 Future Hold Lorazepam (Ativan) 0.5 mg Q6H PRN 01/03/17 12:00 Future Hold Lorazepam (Ativan Intensol) 0.5 mg Q6H PRN 01/03/17 14:15 Future Hold 01/04/17 02:33 0.5 MG Acetaminophen 1 to 2 tabs for pa... Q5H PRN 01/03/17 18:15 01/04/17 05:39 650 MG Sodium Chloride (Normal Saline IV) 1,000 ml @ 100 mls/hr Q10H 01/04/17 13:45 01/04/17 15:30 100 MLS/HR Subjective Patient seen and chart reviewed. She was said to have presented with psychotic symptoms, but since admission it appears that she has been more hypoactive and not responding to the call of her name. Patient was given Lorazepam early this morning at about 0253 and she has been more drowsy. She lets out intermittent grunting sound. She has not been eating today. There is report that patient's Haloperidol was discontinued prior to developing psychotic symptom. She has IVF of NS running Time of Service: 18:30 Start Time: 18:30 Stop Time: 18:45 Care >50% of this visit spent in counseling/coordination care. [facility] Exam Vitals Vital Signs Date Time Temp Pulse Resp B/P Pulse Ox O2 Delivery O2 Flow Rate FiO2 01/04/17 20:00 95.9 49 14 188/72 97 Room Air Physical examination performed by the hospitalist. Height (Feet): 5 Height (Inches): 3.00 Mental Status Exam Muscle Strength/Tone: Weak Dressing: Casual Grooming: Disheveled Attitude: Other (somnnolent) Motor Activity: Retardation Eye Contact: Poor Speech: Other (None) Volume: Other Rhythm: Other (None) Sensory: Stupor Orientation: Disoriented to time, Disoriented to person, Disoriented to place, Disoriented to situation Mood: Other (Somnolent') Affect: Other (hypoactive) Thought Organization: Confused Associations: Other (None) Abstract Reasoning: Impaired, concrete Computation: Poor Computation Perception/Psychotic: Psychotic Attention Span/Concentration: Other (Somnolent) Fund of Knowledge: Poor fund of knowledge Memory: Poor-immediate, Poor-recent, Poor-remote Suicidal Ideation: None Homicidal Ideation: None Insight: Poor Judgment: Poor Impulse Control: Poor Laboratory Tests Test 01/04/17 06:35 01/04/17 16:48 01/04/17 17:34 Hemoglobin A1c 5.4% Urine Collection Type Cleancatch-midstream Urine Color Yellow Urine Turbidity Clear Urine pH 6.5 Urine Specific [place] 1.010 Urine Protein Trace Urine Glucose (UA) Negative Urine Ketones Negative Urine Blood Negative Urine Nitrite Negative Urine Bilirubin Negative Urine Urobilinogen 0.2EU/DL Urine Leukocyte Esterase Negative Urinalysis Comment Microscopic not ind. Magnesium Level 2.9MG/DL Urine Opiates Screen NegativeNG/ML Urine Oxycodone Screen NegativeNG/ML Urine Methadone Screen NegativeNG/ML Urine Propoxyphene Screen NegativeNG/ML Urine Barbiturates Screen NegativeNG/ML Urine Tricyclic Antidepressants NegativeNG/ML Urine Phencyclidine Screen NegativeNG/ML Urine Amphetamines Screen NegativeNG/ML Urine Methamphetamines Screen NegativeNG/ML Urine Benzodiazepines Screen NegativeNG/ML Urine Cocaine Screen NegativeNG/ML Urine Cannabinoids Screen NegativeNG/ML Lab Scanned Report REFERENCE [id number] Assessment and Plan (1) Delirium due to multiple etiologies Assessment: Suspect Plan: Will order at EKG to check QT. Will hold Haldol and other antipsychotics at this time. Team will discuss case with salad bar clerk on Wednesday. Would hope to get pt off of Amiodarone if possible but if not possible then would recommend Latuda or Abilify as these seem to have the best evidence for not prolonging QT. 01/04/17: Discontinue Lorazepam. Cont to monitor patient in the unit (2) Hypothyroid (3) Major neurocognitive disorder Assessment: Suspect (4) Unspecified schizophrenia, unspecified condition MAIDA WALLER MD Jan 05, 2017 00:00
[2017-01-05 01:00] VITALS: BP 156/67; PULSE 60; RESP 14; TEMP 97.5; O2SAT 98
[2017-01-05] MEDS ORDERED: OLANZAPINE 10 MG/VIAL INJECTION IM ONE (01:15)
--- NOTE | 2017-01-05 01:30 | NUR ---
PRN Pt received Zyprexa 1.25mg IM @ 0115 for restlessness and hitting and kicking staff. Pt tolerated well and is currently on constant observation.
--- NOTE | 2017-01-05 02:01 | NUR ---
Chart Check 24 hour chart check completed
--- NOTE | 2017-01-05 02:29 | NUR ---
PRN Follow up Pt still on constant observation but not as restless. Pt going in and out of sleep. when she is not sleeping she is trying to get out of the bed and hitting and kicking at staff.
[2017-01-05 05:33] LABS: ANION GAP 5 MEQ/L (5-15); BUN/CREATININE RATIO 19 RATIO (6-26); CALCIUM 8.9 MG/DL (8.4-10.2); CHLORIDE 111 MEQ/L (98-107); CO2 - CARBON DIOXIDE 30 MEQ/L (22-30); CREATININE 1.5 MG/DL (0.7-1.2); GLOMERULAR FILTRATION RATE 33; GLUCOSE 85 MG/DL (65-110); POTASSIUM 5.3 MEQ/L (3.6-5); SODIUM 146 MEQ/L (134-144)
--- NOTE | 2017-01-05 06:24 | NUR ---
Summary Pt slept 5.0 hours most of that being at the beginning of the shift. Pt was restless throughout the night. She required constant observation for most of the shift and bed rails were lined with pillows to protect the patient from harming herself. She was waving her arms for most of the night and picking at the air. Pt would have periods of snoring followed by thrashing about in her bed. Pt did not have any S/S of pain and received no additional PRN medications through the night. Pt is currently in bed resting with side rails up x2 and bed alarm activated.
[2017-01-05 08:00] VITALS: PULSE 44; RESP 12
[2017-01-05] MEDS: CycloSPORINE 0.05% Eye Drops 0.4ml DROPERETTE BOTH EYES SCH ×2 (08:54→09:00)
[2017-01-05] MEDS: OMEGA-3 ACID ESTERS 1 G CAPSULE PO SCH (08:54)
[2017-01-05] MEDS: AMLODIPINE 5 MG TABLET PO SCH (08:54)
[2017-01-05] MEDS: LEVOTHYROXINE 75 MCG TABLET PO SCH (08:54)
[2017-01-05] MEDS: SENNA + DOCUSATE TAB PO SCH (08:54)
[2017-01-05 08:55] VITALS: BP 139/71; PULSE 54; PULSE 96; RESP 20; TEMP 96; O2SAT 56; O2SAT 96
--- NOTE | 2017-01-05 09:25 | PNPDOC ---
MILI VIVAS MEDICAL STENOGRAPHER 01/05/17 0915: Subjective Date DATE: 01/05/17 TIME: 09:11 Subjective March was in bed, but she frequently moved her legs and tangled them in the bedrail or the bedsheets. There were numerous bruises to her extremities. She was reaching her arms out in front of her, grabbing at something. She opened her eyes spontaneously for part of my visit, but was unable to focus on me and was unable to be redirected. Nursing staff have been providing constant observation. No oral intake. Objective Vital Signs Vital signs Vital Signs Date Time Temp Pulse Resp B/P Pulse Ox O2 Delivery O2 Flow Rate FiO2 01/05/17 08:55 96.0 96 20 139/71 96 Room Air Height (Feet): 5 Height (Inches): 3.00 Weight (Kilograms): 66.000 General General Appearance: Confused, Other (hallucinating) Respiratory (Brief) Respiratory: FOUND: clear all barajas Cardiovascular (Brief) Cardiac: FOUND: other (bradycardic) Abdomen (Brief) Abdominal: FOUND: soft Extremities (Brief) Extremity : Side: Bilateral Extremity Finding: NOT FOUND: edema Musculoskeletal (Brief) Musculoskeletal: NOT FOUND: deformity Integumentary (Brief) Integumentary: FOUND: other (bruising to arms/legs) Psychiatric (Brief) Psychiatric: NOT FOUND: alert, oriented Laboratory Laboratory Laboratory Tests 01/05/17 05:06 Assessment & Plan Problems: (1) Bradycardia Status: Chronic (2) Bigeminy Status: Chronic (3) Unspecified schizophrenia, unspecified condition Status: Acute (4) Cognitive and behavioral changes Status: Acute (5) KISHA (acute kidney injury) Status: Acute (6) Elevated liver enzymes Status: Chronic Assessment & Plan: Present on admission, AST- 47, ALT- 77. (7) CAD (coronary artery disease) of artery bypass graft Status: Chronic (8) Restless legs Status: Chronic (9) Carotid artery disease Status: Chronic (10) HTN (hypertension) Status: Chronic (11) Fibromyalgia Status: Chronic (12) Hypothyroid Status: Chronic Assessment Plan/Intensity of Service Electrolytes are worse despite 1L of IVF yesterday - Na up to 146, K up to 5.3 and renal functions have worsened (BUN 28 and Cr 1.5). Will give additional liter of 1/2 NS today. She is not taking in anything by mouth. She continues to have hallucinations, and in discussion with staff they are going to trial Haldol again today. HR bradycardic yesterday but elevated on morning VS (96). I suspect that if there is minimal response to the Haldol and IVF, then we will need to have another discussion with Guerita, pt's daughter/DPOA about end-of- life care. Expect Dr. Canales to see the patient tomorrow am. Code Status Full Code Hospital Course Summary Disclaimer The hospital course summary below is not to be considered part of the above Progress Note. Hospital Course Summary 01/03/17 Agree with admission to [facility] unit for acute behavioral disturbances and changes. In reviewing old records and [facility] charting Haldol has been given intermittently to patient over the last 3 weeks since her hospitalization. Haldol needs to be avoided since patient is on amiodarone. May need to speak with patient's customer marketing manager, Dr. Canales if there is further questions regarding Amiodarone use and questionable tapering. In light of elevated renal function on admission will hold Lisinopril. Will need to monitor blood pressure carefully and may need to increase Norvasc to 10mg if BP is elevated. In regards to elevated LFTS will stop Pepcid as this can hepatitis. Will monitor serial CMP lab to follow. Encourage oral fluid. She may benefit from some IV fluids given acute renal function. She did respond well to IV fluids during per previous hospitalization. I have independently evaluated and examined this patient. I reviewed the chart, the patient's history, and the MEDICAL STENOGRAPHER's documented findings as above. We discussed and formulated the assessment and plan as above with additions as below: Mrs. Lund was resting comfortably in her room when seen. She had been sedated earlier in the day and did not respond to questions although mumbled occasionally and at one point clearly said "3". Current records and past records have been reviewed-visual hallucinations reported since Haldol discontinued with onset of congregational auditory hallucinations prior to admission. Patient became physically aggressive with staff at the fpc prompting ER evaluation and hospitalization. It is noted that the patient was bradycardic during her last admission but when seen by Dr. Canales after discharge she was found to have episodes of bigeminy which were thought to account for previously reported bradycardia and amiodarone was initiated at that time. On examination the patient responds to voice mumbling slightly and follows occasional commands gripping my fingers weakly but symmetrically. Gaze is conjugate and extraocular muscles intact, facial structures are symmetric. Respirations are nonlabored and breath sounds clear anteriorly. Cardiac rhythm is regular. The patient withdraws all 4 extremities to palpation and does so with relatively symmetric power. No tremors are present. EKG has been reviewed by myself demonstrating marked sinus bradycardia with heart rate of 34, subsequently heart rate has been improved by palpation with heart rates in the 50s. Laboratory data reviewed, liver enzymes slightly elevated but minimally changed from last admission. Hold amiodarone in the morning until can review with Dr. Canales. In addition to above diagnoses please add: #1 sinus bradycardia #2 recent bigeminy 01/04/17 Bradycardia persists - discussed with Dr. Canales - offered additional hx - pt has been becoming more forgetful and nervous over the last year; also notes increasing depression since the of her . Does not believe bradycardia is causing lethargy, eve. considering perfusing BP readings. Recommends to hold amiodarone for now (she started it b/c when she was in the office Ethel was in bigeminy in the 40s). Dr. Canales wanted to set her up with [facility] to measure how much time she was in bigeminy vs. bradycardia. Next step would be a pacemaker, but given her rapid decline this may not be in her best interest. She will come and see the patient on Wednesday. She would prefer updates on status and plans of care. Will discuss goals of care with her brother. Concerned about declining mental status - may need IVF. Unable to take anything oral this morning due to mental status. Straight cath to check UA and UDS Later in the morning I joined Rodger Nolasco, the carlos SW, in a phone conversation with Ethel Dexter's daughter and DPOA. I relayed to her the information from Dr. Canales, and her mother's current mental status. She stated that her mother would not want to have any procedures for her heart if her mind wasn't working properly. Her mother told her that her biggest fear was dementia , and now she is "living her nightmare". She did, however, report that there does seem to be some correlation with low HR and sleepiness - when she was here visiting Ethel at , she became more sleepy and started slurring her words when her heart rate decreased. She understands that at this time, the heart rate medication makes it too risky to continue the Haldol, which had been effective in controlling her hallucinations before. Guerita approved giving IVF at this time , if indicated. If her mental status improves, she may consent to a pacemaker, but would look towards Dr. Canales's and Dr. Hernandez's recommendations as well. She also would like to change her mother's code status to DNR. Ethel was able to complete a living will before she was discharged from [facility] ([place], [place]) the last time , so we do know that she would not want a G-tube. Guerita called me back around 1345 to inquire about antipsychotic treatment plan and concern about dehydration. I informed her that I haven't seen any orders, but the psychiatrist had mentioned a couple other medications that we might consider. Given her slightly low BP and poor oral intake will give 1L of IVF to see if this has an effect on her mental status and hemodynamics. 01/05/17 Electrolytes are worse despite 1L of IVF yesterday - Na up to 146, K up to 5.3 and renal functions have worsened (BUN 28 and Cr 1.5). Will give additional liter of 1/2 NS today. She is not taking in anything by mouth. She continues to have hallucinations, and in discussion with staff they are going to trial Haldol again today. HR bradycardic yesterday but elevated on morning VS (96). I suspect that if there is minimal response to the Haldol and IVF, then we will need to have another discussion with Guerita, pt's daughter/DPOA about end-of- life care. Expect Dr. Canales to see the patient tomorrow am. JIMENA MATOS MD 01/05/17 181: Assessment & Plan Assessment I have independently evaluated and examined this patient. I reviewed the chart, the patient's history, and the MEDICAL STENOGRAPHER's documented findings as above. We discussed and formulated the assessment and plan as above with additions as below: Mrs. Ludn was reassessed this afternoon after speaking with her daughter Guerita. Guerita reports that prior to hospitalization she noted her mother's mental status and speech worsened when her heart rate was low compared to when heart rate was in the 50s or above. Is unclear what her blood pressure was at the corresponding times. She is reconsidering whether cardiac intervention should precede psychiatric stabilization. Mrs. Lund was resting in bed when seen but responded to voice and answered "yes" clearly when I asked her if her daughter was named Guerita. Most speech was mumbled and could not be made out. She followed simple commands squeezing my fingers and raising her legs off the bed symmetrically. She raised her right arm to command but did not raise the left and did not hold the left up well when I raised for her. Withdrew both feet to pinch symmetrically. Cardiac rhythm is regular but slow with recorded rates in the 40s and 50s today. Blood pressure has been stable. DO NOT RESUSCITATE order confirmed with Guerita in order written. Message sent to Dr. Canales to update her on patient status. Discussed with Dr. Mendoza, fluids changed to [id number]/[id number]. Multiple medications on hold. Reevaluate left arm use tomorrow, if continues to show evidence of decreased spontaneous or triggered use of the left arm relative to the right will require further [employer] imaging. MILI VIVAS APRN Jan 05, 2017 09:15 JIMENA MATOS MD Jan 05, 2017 18:16
[2017-01-05] MEDS ORDERED: 1/2 NS 1,000 ML IV SCH (09:30)
[2017-01-05 11:39] VITALS: PULSE 44; RESP 12
[2017-01-05] MEDS ORDERED: OLANZAPINE 5 MG PO PRN (13:00)
--- NOTE | 2017-01-05 13:39 | NUR ---
COORDINATE MEASURING MACHINE OPERATOR [facility] has sat with pt. at various times of the morning. She is in recliner in day room with IV attached. Pt. does open her eyes on occasion. She does not appear to be able to focus or make any eye contact. She mumbles to herself at times and is observed picking at the air. She does not respond to any music that is played.
--- NOTE | 2017-01-05 13:47 | NUR ---
NEERAJ PICKARD LEFT MESSAGE FOR [place] PT BROTHER. CM EXPLAINED ROLE AND PROVIDED CONTACT INFORMATION.
--- NOTE | 2017-01-05 14:36 | NUR ---
NEERAJ PICKARD SPOKE WITH ANDREY PT DAUGHTER AND DPOA. CM EXPLAINED ROLE AND PROVIDED CONTACT INFORMATION. DAUGHTER IS AWARE THAT PT MOST LIKELY WILL NOT RETURN TO [facility] BUT THAT THEY DO HAVE A BED FOR HER EIGHT SECTION [facility] NEEDS IF NEEDED. ANDREY IS AWARE TO CONTACT CM IF NEEDS ARISE.
--- NOTE | 2017-01-05 14:41 | NUR ---
SWIMMING POOL MAINTENANCE LSCSW spoke with PD (Davi Flores) and Dr. Rivas regarding the concern shared to RN (Angela) by [facility]- (Guerita Frazier [phone]) earlier today[address] Dr. Rivas agreed to make phone call to DP to answer any medical questions and address any concerns.
--- NOTE | 2017-01-05 14:49 | NUR ---
STATUS Pt is AO x 1. Pt has mumble speech, Pt was took his medications crushed with pudding. Pt drink half of [place] juice this morning for breakfast, she refused to eat anything else. This RN tried to feed her, Pt moved her head away and said she didn't want any. Order was received by SANTIAGO mcnair for 1/2 normal saline. Pt had an IV lock on her left arm, IV was not patent, IV was discontinued this morning and new 22G IV was started at 1015 on her right forearm, IV was successful on first attempt. Pt tolerated procedure well. Pt has currently running 1/2 normal saline at 75ml/hr. Pt refused lunch. Pt has been out in the dining room this morning. Patient was noticed reaching for unseen stuff this morning. Pt is currently sleeping in her room now, bed alarm is on, bed side rails are up x 2, bed is at its lowest position, will continue to monitor for needs or concerns.
--- NOTE | 2017-01-05 15:56 | NUR ---
PRINTED CIRCUIT PHOTOGRAPHER--PM GROUP Pt. was in her room resting and did not participate in psychosocial group facilitated by [facility].
--- NOTE | 2017-01-05 15:59 | NUR ---
SLUMS EXAMINATION/ALCOHOL AUDIT PATIENT SCORE 0 ON SLUMS EXAMINATION, SHE WAS COGNITIVELY IMPAIRED AOX 1. SELF ONLY. UNABLE TO ANSWER ANY QUESTIONS. PATIENT SCORE 0 ON ALCOHOL AUDIT, INFORMATION OBTAINED FROM BROTHER [place] Addendum: 01/05/17 at 1611 by GABRIEL DEMPSEY RN SLUMS EXAMINATION WAS NOT ABLE TO BE COMPLETED DUE TO DECREASE LEVEL OF CONSCIOUSNESS.
[2017-01-05 16:00] VITALS: BP 163/74; PULSE 53; RESP 12; TEMP 96.5; O2SAT 93
[2017-01-05] MEDS: D5-1/2 NS 1,000 ML IV SCH (18:42)
--- NOTE | 2017-01-05 19:34 | NUR ---
SUMMARY Pt is AO x 1. Pt was restless this morning she was moving around bed trying to get out by her self. Pt was taken to the dining room for breakfast. She drink half of her orange juice and took her morning medications crushed with pudding. This RN tried to feed her and patient moved her head away and said she didn't wanted any more. Pt was observed reaching out for unseen things. Order was received for 1/2 normal saline and patient received a total of 486 ML before it was discontinued. Patient pulled her IV out around 1700, Pt was found in her bed and the IV was out, IV catheter was complete and intact. Arm was cleaned, and wrapped with Coban to stop bleeding. New IV was started on her right upper arm 22G. Patient was started on new different fluids D5 1/[address] Rivas order. Fluids are currently running at 75 ml/hr, Pt tolerated new IV start well. Patient has been in her bed this evening, she has been difficult to arouse. Moves around her bed occasionally, takes her blankets off, Pt is currently laying down in bed, bed alarm is on bed side rails are up x 2.
--- NOTE | 2017-01-05 19:54 | GENPN ---
[facility] Subjective Date DATE: 01/05/17 TIME: 19:37 Subjective/Severity of Illness Medications Current Medications Medications (Trade) Dose Ordered Sig/Kelley Start Time Stop Time Status Last Admin Dose Admin Amiodarone HCl (Pacerone) 200 mg DAILY 01/04/17 09:00 Future Hold Amlodipine Besylate (Norvasc) 5 mg DAILY 01/04/17 09:00 01/05/17 08:54 5 MG Aspirin (ASA) 325 mg HS 01/03/17 21:00 Future Hold 01/03/17 19:48 325 MG Cyclosporine (Restasis Eye Drops) 1 drop BID 01/03/17 21:00 Future Hold 01/04/17 09:00 1 DROP Famotidine (Pepcid) 40 mg DAILY 01/04/17 09:00 Future Hold Levothyroxine Sodium (Synthroid) 75 mcg ACB 01/04/17 06:30 Future Hold 01/05/17 08:54 75 MCG Lisinopril (Prinivil) 20 mg DAILY 01/04/17 09:00 Future Hold Senna/Docusate Sodium (Senna Plus) 1 tab BID 01/03/17 21:00 Future Hold 01/05/17 08:54 1 TAB [id number] Ethyl Esters (Lovaza) 1 g BID 01/03/17 21:00 Future Hold 01/03/17 19:48 1 G Miscellaneous Medication (May use PRN orders) 1 PRN PRN 01/03/17 12:00 Lorazepam (Ativan) 0.5 mg Q6H PRN 01/03/17 12:00 Future Hold Lorazepam (Ativan) 0.5 mg Q6H PRN 01/03/17 12:00 Future Hold Lorazepam (Ativan Intensol) 0.5 mg Q6H PRN 01/03/17 14:15 Future Hold 01/04/17 02:33 0.5 MG Acetaminophen 1 to 2 tabs for pa... Q5H PRN 01/03/17 18:15 Future Hold 01/04/17 05:39 650 MG Sodium Chloride 1,000 ml @ 100 mls/hr Q10H 01/04/17 13:45 01/05/17 08:46 DC 01/04/17 15:30 100 MLS/HR Sodium Chloride (0.45% NS) 1,000 ml @ 75 mls/hr [id number] 01/05/17 09:30 01/05/17 18:09 DC 01/05/17 09:33 75 MLS/HR Olanzapine (Zyprexa Zydis) 2.5 mg HS 01/05/17 21:00 01/05/17 21:00 DC Olanzapine (Zyprexa Zydis) 1.25 mg Q6HR PRN 01/05/17 13:00 01/05/17 16:13 DC Haloperidol Lactate 0.25 mg 0.25 mg HS 01/05/17 21:00 Dextrose/Sodium Chloride (D5-1/2 NS) 1,000 ml @ 75 mls/hr [id number] 01/05/17 18:15 01/05/17 18:42 75 MLS/HR Subjective Patient seen and chart reviewed. She was seen laying on the bed and was able to open her eyes to call of her name and makes some grunting sound intermittently. There is intermittent movement of her legs which appears to be non-purposeful. She was only able to eat few bites of her meal today. Last night, patient was said to agitated and got a one time dose of Olanzapine 1.25mg IM. She was able to sleep for about 5 hours before waking up at about 0200 and was not able to sleep again. Spoke with patient's brother Zach who visited and he reports that patient had a rapid decline just in the last 1 week prior to presentation. Called patient's daughter Guerita [phone] who reports that patient was recently started on amiodarone prior to presentation and the Haloperidol that was recently stopped by her standards engineer due her heart problem. Since admission patient has had 3 EKG each showing sinus bradycardia with Qtc ranging between 442-471. Given patient's hypoactive state I discussed stopping most of her medication and also adding Dextrose to her IVF with Dr. Rivas who agreed. Time of Service: 17:00 Start Time: 17:00 Stop Time: 17:15 Care >50% of this visit spent in counseling/coordination care. [facility] Exam Vitals Vital Signs Date Time Temp Pulse Resp B/P Pulse Ox O2 Delivery O2 Flow Rate FiO2 01/05/17 16:00 96.5 53 12 163/74 93 Room Air Physical examination performed by the hospitalist. Height (Feet): 5 Height (Inches): 3.00 Mental Status Exam Muscle Strength/Tone: Weak Dressing: Neat Grooming: Fair Attitude: Other (confused) Motor Activity: Retardation Eye Contact: Poor Speech: Other (incoherent) Volume: Other (None) Rhythm: Other (None) Sensory: Stupor, Confused Orientation: Disoriented to time, Disoriented to person, Disoriented to place, Disoriented to situation Mood: Other (Depressed mental status) Affect: Blunted Rate of Thoughts: Other (None) Thought Organization: Confused Associations: Loose-associations Abstract Reasoning: Impaired, concrete Computation: Poor Computation Thought Content: Delusions Current Hallucinations: Visual, Auditory Attention Span/Concentration: Inattentive Language: Naming Impaired Fund of Knowledge: Poor fund of knowledge Memory: Poor-immediate, Poor-recent, Poor-remote Suicidal Ideation: None Homicidal Ideation: None Insight: Poor Judgment: Poor Impulse Control: Poor Laboratory Tests Test 01/05/17 05:06 Turbidity < 20 Sodium Level 146MEQ/L Potassium Level 5.3MEQ/L Chloride Level 111MEQ/L Carbon Dioxide Level 30MEQ/L Anion Gap 5MEQ/L Blood Urea Nitrogen 28.0MG/DL Creatinine 1.5MG/DL Glomerular Filtration Rate Calc 33 BUN/Creatinine Ratio 19RATIO Glucose Level 85MG/DL Calculated Osmolality 286MOSM/KG Calcium Level 8.9MG/DL Icterus Index < 2 Chemistry Specimen Hemolysis < 15 Assessment and Plan (1) Delirium due to multiple etiologies Assessment: Suspect Plan: Will order at EKG to check QT. Will hold Haldol and other antipsychotics at this time. Team will discuss case with standards engineer on Wednesday. Would hope to get pt off of Amiodarone if possible but if not possible then would recommend Latuda or Abilify as these seem to have the best evidence for not prolonging QT. 01/04/17: Discontinue Lorazepam. Cont to monitor patient in the unit 01/05/17: Hold Tylenol, Aspirin, Cyclosporine,Levothyroxine, [place] 3 fatty acid and Cristina. Start Haloperidol 0.25mg IV q hs. Fasting blood sugar daily (2) Hypothyroid (3) Major neurocognitive disorder Assessment: Suspect (4) Unspecified schizophrenia, unspecified condition MAIDA WALLER MD Jan 05, 2017 19:48
[2017-01-05 20:55] VITALS: RESP 14
[2017-01-05] MEDS: HALOPERIDOL 5 MG/ML INJECTION IV SCH (21:00)
[2017-01-05] MEDS ORDERED: OLANZAPINE 5 MG PO SCH (21:00)
[2017-01-05] MEDS ORDERED: HALOPERIDOL 5 MG/ML INJECTION IV ONE (22:00)
--- NOTE | 2017-01-05 22:13 | NUR ---
SHIFT SUMMARY PATIENT WAS IN HER ROOM IN BED UPON BEGINNING OF SHIFT. SHE HAS REMAINED IN BED, LETHARGIC, CONFUSED AND RESTLESS. PATIENT CONTINUES TO HAVE CONTINUOUS IV FLUIDS RUNNING AT 75ML/HR. PATIENT HAS BEEN HAVING VISUAL HALLUCINATIONS, THINKS SHE HAS STRING ON HER HANDS AND GIVES IT TO WHOM EVER IS CLOSE. NO PRN'S GIVEN OF NOW. PATIENT WAS ABLE TO AMBULATE X2 ASSIST TO THE BATHROOM. SHE WAS VERY UNSTEADY, WEAK AND LETHARGIC SO CLOSE MONITORING WHILE AMBULATING NEEDED. PATIENT REMAINED IN BED WITH BED ALARM ON AND BED RAILS UP X2.
[2017-01-06] VITALS (7 sets, daily range): BP systolic 129–146; BP diastolic 65–73; PULSE 57–70; RESP 14–16; TEMP 94.9–97.6; O2SAT 92–98
--- NOTE | 2017-01-06 03:15 | NUR ---
Chart Check 24 hour chart check completed
[2017-01-06 05:28] LABS: ANION GAP 7 MEQ/L (5-15); BUN/CREATININE RATIO 21 RATIO (6-26); CALCIUM 8.4 MG/DL (8.4-10.2); CHLORIDE 109 MEQ/L (98-107); CO2 - CARBON DIOXIDE 27 MEQ/L (22-30); CREATININE 1.1 MG/DL (0.7-1.2); GLOMERULAR FILTRATION RATE 47; GLUCOSE 118 MG/DL (65-110); POTASSIUM 4.7 MEQ/L (3.6-5); SODIUM 143 MEQ/L (134-144)
--- NOTE | 2017-01-06 07:20 | NUR ---
Summary Pt. slept 0 hours this shift. Pt. is only able to sleep for brief periods, 5 minutes or less then pt. starts reaching out for things that are unseen in the air. Pt. is also constantly moving legs, d/t restless leg syndrome. Pt. is restless, anxious and agitated. Pt. pulls hospital gown off, throws blankets off, pt. pulls at IV tubing and disconnects tubing from IV site. Iv site remains in place and intact and tubing is replaced. Continuous IV fluids are running at 75ml/hr. Pt. is incontinent this shift. Pt. is not combative or aggressive. No prn medications given. Pt. is resting in bed with the bed alarm activated and SR up x2.
[2017-01-06] MEDS: D5-1/2 NS 1,000 ML IV SCH ×2 (08:23→21:23)
[2017-01-06] MEDS: AMLODIPINE 5 MG TABLET PO SCH (09:00)
--- NOTE | 2017-01-06 10:23 | PNPDOC ---
TIANNA SHARP APRN 01/06/17 1015: Subjective Date DATE: 01/06/17 TIME: 0830 Subjective Ethel is seen this morning while sleeping. She will maon during examination however is not able to verbally respond. She does withdrawal to pain to bilateral lower extremities. She does follow commands and gives bilateral hand grasps however will not straighten out left arm. Does not open eyes during exam. Nursing staff report that overnight she did ambulate with assistance of 2 to the bathroom however her gait is very unsteady. She is breathing comfortably on room air without evidence of distress. BP this morning 139/71. Electrolytes improved. Objective Vital Signs Vital signs Vital Signs Date Time Temp Pulse Resp B/P Pulse Ox O2 Delivery O2 Flow Rate FiO2 01/06/17 08:00 62 16 01/06/17 07:59 97.0 139/71 92 Room Air Height (Feet): 5 Height (Inches): 3.00 Weight (Kilograms): 66.000 General General Appearance: Confused, Cooperative, No Acute Distress Eyes (Brief) Eyes: FOUND: EOMI ENMT (Brief) ENMT: FOUND: mucosa moist, normal dentition, NOT FOUND: pharnyx erythema Neck (Brief) Neck: FOUND: midline, NOT FOUND: adenopathy, carotid bruits, tracheal deviation Respiratory (Brief) Respiratory: FOUND: clear all barajas, equal bilaterally, NOT FOUND: wheezes Cardiovascular (Brief) Cardiac: FOUND: regular rate, regular rhythm, NOT FOUND: murmur, pedal edema Capillary Refill: <2 sec Abdomen (Brief) Abdominal: FOUND: BS normo active x4, soft, NOT FOUND: distended, tender Lymphatic (Brief) Lymphatic: NOT FOUND: adenopathy Musculoskeletal (Brief) Musculoskeletal: NOT FOUND: tenderness Integumentary (Brief) Integumentary: FOUND: dry, pink, warm Laboratory Laboratory Laboratory Tests 01/05/17 05:06 01/06/17 04:35 Assessment & Plan Problems: (1) Bradycardia Status: Chronic (2) Bigeminy Status: Chronic (3) Unspecified schizophrenia, unspecified condition Status: Acute (4) Cognitive and behavioral changes Status: Acute (5) KISHA (acute kidney injury) Status: Acute (6) Elevated liver enzymes Status: Chronic Assessment & Plan: Present on admission, AST- 47, ALT- 77. (7) CAD (coronary artery disease) of artery bypass graft Status: Chronic (8) Restless legs Status: Chronic (9) Carotid artery disease Status: Chronic (10) HTN (hypertension) Status: Chronic (11) Fibromyalgia Status: Chronic (12) Hypothyroid Status: Chronic Plan/Intensity of Service 01/06/17 Ethel continues to show decreased alertness however will respond to verbal commands. Does follow commands and will squeeze both hands however keeps left arm contracted. Withdrawals to pain to Bilateral lower ext. Electrolytes have improved on D5W 1/2 NS IV fluids. NA decreased to 143, Potassium 4.7 and renal function improved down to 1.1. BP this morning is good at 139/71. Again daughter did confirm DNR status last evening Will continue to follow carefully. Will examine again later this afternoon. Code Status Do Not Resuscitate Hospital Course Summary Disclaimer The hospital course summary below is not to be considered part of the above Progress Note. Hospital Course Summary 01/03/17 Agree with admission to [facility] unit for acute behavioral disturbances and changes. In reviewing old records and correction charting Haldol has been given intermittently to patient over the last 3 weeks since her hospitalization. Haldol needs to be avoided since patient is on amiodarone. May need to speak with patient's fun house operator, Dr. Canales if there is further questions regarding Amiodarone use and questionable tapering. In light of elevated renal function on admission will hold Lisinopril. Will need to monitor blood pressure carefully and may need to increase Norvasc to 10mg if BP is elevated. In regards to elevated LFTS will stop Pepcid as this can hepatitis. Will monitor serial CMP lab to follow. Encourage oral fluid. She may benefit from some IV fluids given acute renal function. She did respond well to IV fluids during per previous hospitalization. I have independently evaluated and examined this patient. I reviewed the chart, the patient's history, and the SERVICE STATION OPERATOR's documented findings as above. We discussed and formulated the assessment and plan as above with additions as below: Mrs. Lund was resting comfortably in her room when seen. She had been sedated earlier in the day and did not respond to questions although mumbled occasionally and at one point clearly said "3". Current records and past records have been reviewed-visual hallucinations reported since Haldol discontinued with onset of voodoo auditory hallucinations prior to admission. Patient became physically aggressive with staff at the correction prompting ER evaluation and hospitalization. It is noted that the patient was bradycardic during her last admission but when seen by Dr. Canales after discharge she was found to have episodes of bigeminy which were thought to account for previously reported bradycardia and amiodarone was initiated at that time. On examination the patient responds to voice mumbling slightly and follows occasional commands gripping my fingers weakly but symmetrically. Gaze is conjugate and extraocular muscles intact, facial structures are symmetric. Respirations are nonlabored and breath sounds clear anteriorly. Cardiac rhythm is regular. The patient withdraws all 4 extremities to palpation and does so with relatively symmetric power. No tremors are present. EKG has been reviewed by myself demonstrating marked sinus bradycardia with heart rate of 34, subsequently heart rate has been improved by palpation with heart rates in the 50s. Laboratory data reviewed, liver enzymes slightly elevated but minimally changed from last admission. Hold amiodarone in the morning until can review with Dr. Canales. In addition to above diagnoses please add: #1 sinus bradycardia #2 recent bigeminy 01/04/17 Bradycardia persists - discussed with Dr. Canales - offered additional hx - pt has been becoming more forgetful and nervous over the last year; also notes increasing depression since the of her . Does not believe bradycardia is causing lethargy, eve. considering perfusing BP readings. Recommends to hold amiodarone for now (she started it b/c when she was in the office Ethel was in bigeminy in the 40s). Dr. Canales wanted to set her up with Omar Innova to measure how much time she was in bigeminy vs. bradycardia. Next step would be a pacemaker, but given her rapid decline this may not be in her best interest. She will come and see the patient on Wednesday. She would prefer updates on status and plans of care. Will discuss goals of care with her brother. Concerned about declining mental status - may need IVF. Unable to take anything oral this morning due to mental status. Straight cath to check UA and UDS Later in the morning I joined Rodger Nolasco, the carlos TEJEDA, in a phone conversation with Ethel Dexter's daughter and DPOA. I relayed to her the information from Dr. Canales, and her mother's current mental status. She stated that her mother would not want to have any procedures for her heart if her mind wasn't working properly. Her mother told her that her biggest fear was dementia , and now she is "living her nightmare". She did, however, report that there does seem to be some correlation with low HR and sleepiness - when she was here visiting March at , she became more sleepy and started slurring her words when her heart rate decreased. She understands that at this time, the heart rate medication makes it too risky to continue the Haldol, which had been effective in controlling her hallucinations before. Guerita approved giving IVF at this time , if indicated. If her mental status improves, she may consent to a pacemaker, but would look towards Dr. Canales's and Dr. Hernandez's recommendations as well. She also would like to change her mother's code status to DNR. Ethel was able to complete a living will before she was discharged from [facility] the last time , so we do know that she would not want a G-tube. Guerita called me back around 1345 to inquire about antipsychotic treatment plan and concern about dehydration. I informed her that I haven't seen any orders, but the psychiatrist had mentioned a couple other medications that we might consider. Given her slightly low BP and poor oral intake will give 1L of IVF to see if this has an effect on her mental status and hemodynamics. 01/05/17 Electrolytes are worse despite 1L of IVF yesterday - Na up to 146, K up to 5.3 and renal functions have worsened (BUN 28 and Cr 1.5). Will give additional liter of 1/2 NS today. She is not taking in anything by mouth. She continues to have hallucinations, and in discussion with staff they are going to trial Haldol again today. HR bradycardic yesterday but elevated on morning VS (96). I suspect that if there is minimal response to the Haldol and IVF, then we will need to have another discussion with Guerita, pt's daughter/DPOA about end-of- life care. Expect Dr. Canales to see the patient tomorrow am. 01/06/17March continues to show decreased alertness however will respond to verbal commands. Does follow commands and will squeeze both hands however keeps left arm contracted. Withdrawals to pain to Bilateral lower ext. Electrolytes have improved on D5W 1/2 NS IV fluids. NA decreased to 143, Potassium 4.7 and renal function improved down to 1.1. BP this morning is good at 139/71. Again daughter did confirm DNR status last evening Will continue to follow carefully. Will examine again later this afternoon. JIMENA MATOS MD 01/06/174: Assessment & Plan Assessment I have independently evaluated and examined this patient. I reviewed the chart, the patient's history, and the SERVICE STATION OPERATOR's documented findings as above. We discussed and formulated the assessment and plan as above with additions as below: Ethel was seen in conjunction with Dr. Canales in the day room at lunchtime. She was more alert today than on my prior visits. Speech was mumbled but she responded to questions more frequently and with more intelligible responses today than in the past. She followed simple commands and raised her left arm without difficulty. Manager Marketing Communication are symmetric. Heart rate has consistently been in the 50s and low 60s over the past 24 hours and blood pressure stable. I concur with Dr. Canales's assessment that bradycardia is not the cause of the patient's depressed mental status as blood pressure has consistently been well controlled since hospitalization. Patient is clinically improving although slowly with respect to her heart rate and mental status. Recheck EKG to monitor QT interval with Haldol as Dr. Canales indicated prolonged QT evolved in the past prompting discontinuation of Haldol. Continue to monitor closely, lack of oral intake limiting factor at present. Discussed with Dr Mendoza. TIANNA SHARP APRN Jan 06, 2017 10:15 JIMENA MATOS MD Jan 06, 2017 18:14
--- NOTE | 2017-01-06 13:12 | NUR ---
SPEECH SCREEN RECEIVED FROM NURSING FOR DYSPHAGIA THERMAL TACTILE STIMULATION COMPLETED WITH GAG RESPONSE PRESENT AND FUNCTIONAL SWALLOW IMMEDIATELY FOLLOWING THE STIMULATION ON ALL TRIALS. PATIENT THEN GIVEN SPOONFULS OF MAGIC CUP. PATIENT CONSUMED APPROX. 15 SPOONFULS WITH ONLY TWO COUGHS PRESENT. SHE HAD FAIR ORAL CLEARING. RECOMMEND A PUREED DIET WITH NECTAR THICKENED LIQUIDS. CALORIE DENSE. PLEASE ONLY FEED PATIENT WHEN SHE IS ALERT AND UPRIGHT. CRUSH MEDICATIONS FINALLY. ORAL CARE FREQUENTLY. RECOMMEND STOCKING FREEZER WITH LEMON GLYCERIN SWABS. PLEASE CONTACT ST DEPARTMENT IF QUESTIONS/CONCERNS ARISE. COOPER GIBSON MS CCC-DERMATOLOGY TEACHER
--- NOTE | 2017-01-06 14:26 | NUR ---
High Risk screen R/T poor appetite and NPO >3 days during hospital stay Diet:Dysphagia Pureed with syrup/nectar: Thick liquids Patient was oriented to self only, restless, and confused. Training Consultant spoke with patient's nurse and she expressed it has been difficult getting the patient to eat much of anything. Nurse was agreeable to putting magic cup on patient's meal order. legal internship added mable VENTURA available at 1406 Addendum: 01/06/17 at [address] Student charting reviewed by AUDREY.
--- NOTE | 2017-01-06 14:31 | NUR ---
SUMMARY Pt is AO x 1 Pt has been in bed part of the morning, Pt continues to be on IV fluids D5 1/2 NS running at 75 mL /hr. IV dressing is clean dry and intact. Patient has constant hand movement, she tries to reach out for things, Pt will also squeeze he hands and make them stiff at times. Pt was able to open her eyes this morning and respond to my question when I ask her how are you. She responded " Terrible." Patient open her eye to command but them she close them again. Pt has been incontinent of urine. She was changed and needs assistance of 2 staff for transfer. Pt did not eat any breakfast, she has not drink anything either, this RN tried feeding her for breakfast and lunch and Pt spit out the oatmeal and mighty shake this morning, during lunch she would not swallow her food she would just let it sit in her mouth. Oral cares was done for her. Pt has been out in the day room, Patient family and DPOA (georgi) was updated of patients status. Family and patients plastic parts fabricator were here visiting. Will continue to monitor for needs or concerns.
--- NOTE | 2017-01-06 17:08 | CONSF ---
DATE OF CONSULTATION 01/06/2017 Ms. Lund is an 86-year-old white female whom I have seen for many years. She has recently had a change in her mental status and had been placed in [place] and is now in the [facility]. She was apparently quite psychotic when she came in. I have been seeing her over the years for coronary artery disease and recently it was noted when she was in [place] that her heart rate and blood pressures were low. I saw her in the office and she was found to be in bigeminy. She was started initially on amiodarone 200 mg t.i.d. With suppression of the bigeminy, however, she still was having heart rates in the 40s at times. Her blood pressure in my office and in the [facility] has been good despite her heart rates. Heart rates here have been in the 40s at times but mostly in the 50s to 60s. Her daughter apparently observed that she was less alert when her heart rates were slow. However, it does not seem to make much of a change here. We had originally planned on placing a Omar of [employer] on her in the assisted. However, there was some difficulty in doing this so it was never done. Her amiodarone was stopped on admission to the [facility]. Heart rate today is in the 60s. She has not been eating or drinking and has been less responsive, though today she opens her eyes to me. She does talk. Her voice is very slurred. However, I am able to make out that she knows who I am. She is following commands and squeezing her hands. She mostly keeps her eyes closed and she appears to be trying to write in the air. All extremities are moving equally. She did take some water off of a sponge for me. EKG on January 03 showed a heart rate of 37. This was on the amiodarone with a marked sinus arrhythmia. It was not 37 throughout the entire EKG with a first-degree AV block. I have had a long discussion with the nurse practitioner and with the bradycardia and the bradyarrhythmias we can place a pacemaker. However , with her mental status changes and all of the problems she is having, it is important that we talk to family about how aggressively they want to go. Heart rate on palpation today is 59. On physical examination the patient does open her eyes and responds to me with voice - words are slurred. She seems pale and has to be verbally aroused to open her eyes. Lungs: clear but diminished Heart: Mild bradycardia rrr EXT: bruising noted no C/C/E Neuro: somnolent but arousable In the past she had had markedly high blood pressures. At this time she is only on Amlodipine 5 mg daily. She has had a recent cardiac workup and in November had an echocardiogram. At that time her ejection fraction was 74 %. She had [id number] mitral regurgitation, some calcification on the mitral annulus without stenosis, normal PA pressures and concentric left ventricular hypertrophy. Her thallium treadmill test was performed in May and at that time she had no evidence of ischemia, normal ejection fraction. IMPRESSION/PLAN I do not feel that she has any correlation between her mental status changes and her slow heart rate. If we are concerned about this we can give her a mild stimulant, short-acting like Ritalin, and see if it makes any difference with her function. Blood pressures have all been good and they are in the 137-140s. Occasionally it looks like she had blood pressures as low as 98-97 and as high as 188. Her heart rate had been in the 60s, occasionally in the 40s and 50s - lowest is 43. This may improve as time goes by off the amiodarone. I will speak to the family about her possibly going for pacemaker though at this point I feel that her it is not going to change her mental status. If she continues to deteriorate it would not help her in the long run. Her chart was reviewed and my recommendations at this time are only to proceed with pacemaker should stimulating her with the Ritalin and getting her heart rate make a big difference in her mental status. At this time I do not feel her cardiac issues are causing her mental status changes. It has been my pleasure to see her. Please don't hesitate to contact me and I will continue to follow along. Spoke to daughter who is the DOPA They wish to wait before any interventions such as a pacemaker due to her mental status. AGUILA
--- NOTE | 2017-01-06 18:49 | NUR ---
Status/Summary Patient is sitting in the recliners in the day room at the start of this shift at 1500. She is picking at unseen things in the air and appearing to roll a ball of yarn and pulling at thread. She is able to answer yes or no questions if staff talk directly in her ear. For supper she ate only one bite of the fruit and let the thickened tea roll down her chin. She was unable to comprehend/follow cues/direction to eat or take a drink. 2 staff persons with use of gait belt pivot transferred her to the bed (she was able to bear weight for a very short period). She was changed - incontinent of urine - and assisted to lay on her right side. IVF running at 75/hr per doctor order
--- NOTE | 2017-01-06 19:50 | GENPN ---
[facility] Subjective Date DATE: 01/06/17 TIME: 19:33 Subjective/Severity of Illness Medications Current Medications Medications (Trade) Dose Ordered Sig/Kelley Start Time Stop Time Status Last Admin Dose Admin Amiodarone HCl (Pacerone) 200 mg DAILY 01/04/17 09:00 Future Hold Amlodipine Besylate (Norvasc) 5 mg DAILY 01/04/17 09:00 01/05/17 08:54 5 MG Aspirin (ASA) 325 mg HS 01/03/17 21:00 Future Hold 01/03/17 19:48 325 MG Cyclosporine (Restasis Eye Drops) 1 drop BID 01/03/17 21:00 Future Hold 01/04/17 09:00 1 DROP Famotidine (Pepcid) 40 mg DAILY 01/04/17 09:00 Future Hold Levothyroxine Sodium (Synthroid) 75 mcg ACB 01/04/17 06:30 Future Hold 01/05/17 08:54 75 MCG Lisinopril (Prinivil) 20 mg DAILY 01/04/17 09:00 Future Hold Senna/Docusate Sodium (Senna Plus) 1 tab BID 01/03/17 21:00 Future Hold 01/05/17 08:54 1 TAB Mvswy-2-Diqc Ethyl Esters (Lovaza) 1 g BID 01/03/17 21:00 Future Hold 01/03/17 19:48 1 G Miscellaneous Medication (May use PRN orders) 1 PRN PRN 01/03/17 12:00 Lorazepam (Ativan) 0.5 mg Q6H PRN 01/03/17 12:00 Future Hold Lorazepam (Ativan) 0.5 mg Q6H PRN 01/03/17 12:00 Future Hold Lorazepam (Ativan Intensol) 0.5 mg Q6H PRN 01/03/17 14:15 Future Hold 01/04/17 02:33 0.5 MG Acetaminophen 1 to 2 tabs for pa... Q5H PRN 01/03/17 18:15 Future Hold 01/04/17 05:39 650 MG Sodium Chloride 1,000 ml @ 100 mls/hr Q10H 01/04/17 13:45 01/05/17 08:46 DC 01/04/17 15:30 100 MLS/HR Sodium Chloride (0.45% NS) 1,000 ml @ 75 mls/hr [id number] 01/05/17 09:30 01/05/17 18:09 DC 01/05/17 09:33 75 MLS/HR Olanzapine (Zyprexa Zydis) 2.5 mg HS 01/05/17 21:00 01/05/17 21:00 DC Olanzapine (Zyprexa Zydis) 1.25 mg Q6HR PRN 01/05/17 13:00 01/05/17 16:13 DC Haloperidol Lactate 0.25 mg 0.25 mg HS 01/05/17 21:00 01/05/17 21:00 0.25 MG Dextrose/Sodium Chloride (D5-1/2 NS) 1,000 ml @ 75 mls/hr [id number] 01/05/17 18:15 01/06/17 08:23 75 MLS/HR Subjective Patient seen and chart reviewed. She was seen earlier today by her biomedical engineering professor who does not think that her intermittent low heart rate has correlation with mental status changes. She also recommended a trial of Ritalin, however given her psychotic symptoms of visual hallucinations and confusion, I fear that adding a stimulant could worsen the psychosis. The biomedical engineering professor will also want to discuss pacemaker placement with her family. Objectively patient was seen to be somnolent and barely opens her eyes to call of her name. She is able to move both her upper and lower limb intermittent though non-purposefully. Her appetite has been poor, but she was able to take some oral liquid today and was incontinent of urine earlier today. Patient was said to be restless last night and was only able to sleep for short time intermittently last night. She is on Haloperidol 0.5mg IV q hs and she appears to be tolerating it and there is no side effect. Patient is also on intravenous dextrose saline at 75cc/hour. Reviewed her CMP which showed a glucose of 118 and the rest were unremarkable. Time of Service: :00 Start Time: :00 Stop Time: 17:15 Care >50% of this visit spent in counseling/coordination care. [facility] Exam Vitals Vital Signs Date Time Temp Pulse Resp B/P Pulse Ox O2 Delivery O2 Flow Rate FiO2 01/06/17 16:41 97.6 61 16 146/73 96 Room Air Physical examination performed by the hospitalist. Height (Feet): 5 Height (Inches): 3.00 Mental Status Exam Muscle Strength/Tone: Weak Dressing: Casual Grooming: Fair Attitude: Other (somnolent) Motor Activity: Retardation Eye Contact: Poor, Other (none) Speech: Other (incoherent) Volume: Other (None) Rhythm: Other (None) Sensory: Drowsy, Other Orientation: Disoriented to time, Disoriented to person, Disoriented to place, Disoriented to situation Mood: Other (confuse) Affect: Flat Rate of Thoughts: Delayed Thought Organization: Disorganized Associations: Loose-associations Abstract Reasoning: Impaired, concrete Computation: Poor Computation Thought Content: Other (confused) Perception/Psychotic: Psychotic Current Hallucinations: Visual Attention Span/Concentration: Inattentive Language: Naming Impaired Fund of Knowledge: Poor fund of knowledge Memory: Poor-immediate, Poor-recent, Poor-remote Suicidal Ideation: None Homicidal Ideation: None Insight: Poor Judgment: Poor Impulse Control: Poor Laboratory Tests Test 01/06/17 04:35 Turbidity < 20 Sodium Level 143MEQ/L Potassium Level 4.7MEQ/L Chloride Level 109MEQ/L Carbon Dioxide Level 27MEQ/L Anion Gap 7MEQ/L Blood Urea Nitrogen 23.0MG/DL Creatinine 1.1MG/DL Glomerular Filtration Rate Calc 47 BUN/Creatinine Ratio 21RATIO Glucose Level 118MG/DL Calculated Osmolality 280MOSM/KG Calcium Level 8.4MG/DL Icterus Index < 2 Chemistry Specimen Hemolysis 16 Assessment and Plan (1) Delirium due to multiple etiologies Assessment: Suspect Plan: Will order at EKG to check QT. Will hold Haldol and other antipsychotics at this time. Team will discuss case with biomedical engineering professor on Wednesday. Would hope to get pt off of Amiodarone if possible but if not possible then would recommend Latuda or Abilify as these seem to have the best evidence for not prolonging QT. 01/04/17: Discontinue Lorazepam. Cont to monitor patient in the unit 01/05/17: Hold Tylenol, Aspirin, Cyclosporine,Levothyroxine, Mabel 3 fatty acid and Cristina. Start Haloperidol 0.25mg IV q hs. Fasting blood sugar daily 01/06/17: Cont current care and encourage oral intake when possible. (2) Hypothyroid (3) Major neurocognitive disorder Assessment: Suspect (4) Unspecified schizophrenia, unspecified condition MAIDA WALLER MD 22, 2017 19:43
--- NOTE | 2017-01-06 22:03 | NUR ---
SHIFT SUMMARY PATIENT HAS BEEN IN HER ROOM IN BED ALL SHIFT. SHE IS ALERT AND ORIENTED X1, CONTINUES TO HAVE VISUAL HALLUCINATIONS AND IS RESTLESS. PATIENT DOES RESPOND TO COMMANDS AND QUESTIONS. SHE HAS NOT HAD ANYTHING PO DURING THIS 4 HOUR SHIFT. MEDICATIONS ARE STILL ON HOLD. PATIENT HAS AN IV-D5/0.45% NS RUNNING CONTINUOUSLY AT 75ML/HR. NO PRN MEDICATION GIVEN OF NOW. PATIENT REMAINED IN BED WITH BED ALARM ON AND BED RAILS UP X2. PATIENT'S DAUGHTER AND FAMILY ARRIVED FROM [place] AND VISITED FOR ABOUT 7 MIN THIS EVENING, THEY PLAN ON RETURNING SCOREKEEPER.
[2017-01-06] MEDS: HALOPERIDOL 5 MG/ML INJECTION IV SCH (23:28)
--- NOTE | 2017-01-07 04:51 | NUR ---
Chart Check 24 hour chart check completed
[2017-01-07 05:33] LABS: ANION GAP 4 MEQ/L (5-15); BUN/CREATININE RATIO 14 RATIO (6-26); CALCIUM 8.1 MG/DL (8.4-10.2); CHLORIDE 110 MEQ/L (98-107); CO2 - CARBON DIOXIDE 28 MEQ/L (22-30); CREATININE 1.2 MG/DL (0.7-1.2); GLOMERULAR FILTRATION RATE 43; GLUCOSE 89 MG/DL (65-110); POTASSIUM 4.3 MEQ/L (3.6-5); SODIUM 142 MEQ/L (134-144)
--- NOTE | 2017-01-07 06:40 | NUR ---
Summary Pt. slept 3.75 hours. Pt. does not respond verbally to questions on first approach. Pt. is both continent and incontinent of urine. Pt. has IVF running at 75ml/hr. Pt. has not pulled on IV tubing like she has done on previous encounters. Pt. is passive and dependent with cares. Pt. is able to tell staff once during the shift she needs to go to the bathroom. Pt. is incontinent of a small amount of urine and also has a continent void in the toilet. Pt. is transferred with 2 staff in the wheelchair due to weakness and unsteady gait. Pt. is witnessed having visual hallucinations. Pt. is reaching for unseen things. Pt. appears to be fishing by her hand movements. No physical aggression is noted or reported. No prn meds given. Pt. is resting in bed with the bed alarm activated and SR up x3.
[2017-01-07 08:06] VITALS: BP 144/75; PULSE 61; RESP 14; TEMP 97.6; O2SAT 95
[2017-01-07 08:13] VITALS: PULSE 61
[2017-01-07] MEDS: AMLODIPINE 5 MG TABLET PO SCH (09:10)
[2017-01-07] MEDS: D5-1/2 NS 1,000 ML IV SCH (10:15)
--- NOTE | 2017-01-07 11:24 | NUR ---
IVF IVF discontinued, keep IVL per order
--- NOTE | 2017-01-07 11:26 | NUR ---
Status Patient sleeps in until 0830, is awoken by staff and assisted with hygiene cares. She is alert, is able to tell me her full name and the name of her children. She uses the bathroom then brushes her teeth and weber her hair. Patient's daughter (Lauryn) and grandson are on the unit and sit with her during breakfast. She eats 75% of breakfast independently and drank half a cup of water (120mL). CECILIA Ochoa notified of patient status per request and IVF discontinued. Presently she is sitting in the recliner in her room with her family present
[2017-01-07] MEDS: ACETAMINOPHEN 325 MG TABLET PO PRN ×2 (11:40→21:49)
--- NOTE | 2017-01-07 12:03 | PNPDOC ---
TIANNA SHARP V [employer] BUTTER FILTER OPERATOR 01/07/17 1159: Subjective Date DATE: 01/07/17 TIME: 11:54 Subjective Ethel is seen this morning sitting up at the sink. She is much more alert and taking today. She is currently brushing her hair with a calm. She does smile when greeted and will answer simple questions with yes and no. She denies having any pain or feeling short of breath. Nursing staff reports she is much more alert and interactive this morning. She is voiding without difficulty and bowels are moving regularly. She did eat majority of breakfast this morning. BP 144/75, no evidence of bradycardia, pulse remains in the 60s and 70s. Objective Vital Signs Vital signs Vital Signs Date Time Temp Pulse Resp B/P Pulse Ox O2 Delivery O2 Flow Rate FiO2 01/07/17 08:13 61 01/07/17 08:06 97.6 14 144/75 95 Room Air Height (Feet): 5 Height (Inches): 3.00 Weight (Kilograms): 66.000 General General Appearance: Alert, Orientated x 1, Cooperative, No Acute Distress Eyes (Brief) Eyes: FOUND: EOMI ENMT (Brief) ENMT: FOUND: mucosa moist, normal dentition, NOT FOUND: pharnyx erythema Neck (Brief) Neck: FOUND: midline, NOT FOUND: adenopathy, carotid bruits, tracheal deviation Respiratory (Brief) Respiratory: FOUND: clear all barajas, equal bilaterally, NOT FOUND: wheezes Cardiovascular (Brief) Cardiac: FOUND: regular rate, regular rhythm, NOT FOUND: murmur, pedal edema Capillary Refill: <2 sec Abdomen (Brief) Abdominal: FOUND: BS normo active x4, soft, NOT FOUND: distended, tender Lymphatic (Brief) Lymphatic: NOT FOUND: adenopathy Musculoskeletal (Brief) Musculoskeletal: NOT FOUND: tenderness Integumentary (Brief) Integumentary: FOUND: dry, pink, warm Neurologic (Brief) Neurological: FOUND: cranial 2-12 intact Psychiatric (Brief) Psychiatric: FOUND: alert, attentive, normal affect Laboratory Laboratory Laboratory Tests 01/06/17 04:35 01/07/17 04:37 Assessment & Plan Problems: (1) Bradycardia Status: Chronic (2) Bigeminy Status: Chronic (3) Unspecified schizophrenia, unspecified condition Status: Acute (4) Cognitive and behavioral changes Status: Acute (5) KISHA (acute kidney injury) Status: Acute (6) Elevated liver enzymes Status: Chronic Assessment & Plan: Present on admission, AST- 47, ALT- 77. (7) CAD (coronary artery disease) of artery bypass graft Status: Chronic (8) Restless legs Status: Chronic (9) Carotid artery disease Status: Chronic (10) HTN (hypertension) Status: Chronic (11) Fibromyalgia Status: Chronic (12) Hypothyroid Status: Chronic Plan/Intensity of Service 01/07/17 Ethel is much more alert today and able to follow commands. She is up at the sink doing her hair this morning. She was able to eat majority of breakfast. Will lock IV fluids as current liter has infused. Asked nursing staff to leave IV lock inplace. Sodium and potassium have continued to maintain normal Continues on Norvasc 5 milligrams daily for blood pressure control. Amiodarone was stopped by cardiology. Patient is only on Haldol at at bedtime. Will continue to follow patient carefully Overall encouraged by improvement in mental status. Code Status Do Not Resuscitate Hospital Course Summary Disclaimer The hospital course summary below is not to be considered part of the above Progress Note. Hospital Course Summary 01/03/17 Agree with admission to [facility] unit for acute behavioral disturbances and changes. In reviewing old records and [facility]dc charting Haldol has been given intermittently to patient over the last 3 weeks since her hospitalization. Haldol needs to be avoided since patient is on amiodarone. May need to speak with patient's waste transportation technician, Dr. Canales if there is further questions regarding Amiodarone use and questionable tapering. In light of elevated renal function on admission will hold Lisinopril. Will need to monitor blood pressure carefully and may need to increase Norvasc to 10mg if BP is elevated. In regards to elevated LFTS will stop Pepcid as this can hepatitis. Will monitor serial CMP lab to follow. Encourage oral fluid. She may benefit from some IV fluids given acute renal function. She did respond well to IV fluids during per previous hospitalization. I have independently evaluated and examined this patient. I reviewed the chart, the patient's history, and the C[employer] BUT[employer] FILTER OPERATOR's documented findings as above. We discussed and formulated the assessment and plan as above with additions as below: Mrs. Lund was resting comfortably in her room when seen. She had been sedated earlier in the day and did not respond to questions although mumbled occasionally and at one point clearly said "3". Current records and past records have been reviewed-visual hallucinations reported since Haldol discontinued with onset of mandaeism auditory hallucinations prior to admission. Patient became physically aggressive with staff at the [facility]dc prompting ER evaluation and hospitalization. It is noted that the patient was bradycardic during her last admission but when seen by Dr. Canales after discharge she was found to have episodes of bigeminy which were thought to account for previously reported bradycardia and amiodarone was initiated at that time. On examination the patient responds to voice mumbling slightly and follows occasional commands gripping my fingers weakly but symmetrically. Gaze is conjugate and extraocular muscles intact, facial structures are symmetric. Respirations are nonlabored and breath sounds clear anteriorly. Cardiac rhythm is regular. The patient withdraws all 4 extremities to palpation and does so with relatively symmetric power. No tremors are present. EKG has been reviewed by myself demonstrating marked sinus bradycardia with heart rate of 34, subsequently heart rate has been improved by palpation with heart rates in the 50s. Laboratory data reviewed, liver enzymes slightly elevated but minimally changed from last admission. Hold amiodarone in the morning until can review with Dr. Canales. In addition to above diagnoses please add: #1 sinus bradycardia #2 recent bigeminy 01/04/17 Bradycardia persists - discussed with Dr. Canales - offered additional hx - pt has been becoming more forgetful and nervous over the last year; also notes increasing depression since the of her . Does not believe bradycardia is causing lethargy, eve. considering perfusing BP readings. Recommends to hold amiodarone for now (she started it b/c when she was in the office Ethel was in bigeminy in the 40s). Dr. Canales wanted to set her up with [facility] to measure how much time she was in bigeminy vs. bradycardia. Next step would be a pacemaker, but given her rapid decline this may not be in her best interest. She will come and see the patient on Wednesday. She would prefer updates on status and plans of care. Will discuss goals of care with her brother. Concerned about declining mental status - may need IVF. Unable to take anything oral this morning due to mental status. Straight cath to check UA and UDS Later in the morning I joined Rodger Nolasco, the [facility] SW, in a phone conversation with Ethel Dexter's daughter and DPOA. I relayed to her the information from Dr. Canales, and her mother's current mental status. She stated that her mother would not want to have any procedures for her heart if her mind wasn't working properly. Her mother told her that her biggest fear was dementia , and now she is "living her nightmare". She did, however, report that there does seem to be some correlation with low HR and sleepiness - when she was here visiting Ethel at , she became more sleepy and started slurring her words when her heart rate decreased. She understands that at this time, the heart rate medication makes it too risky to continue the Haldol, which had been effective in controlling her hallucinations before. Guerita approved giving IVF at this time , if indicated. If her mental status improves, she may consent to a pacemaker, but would look towards Dr. Canales's and Dr. Hernandez's recommendations as well. She also would like to change her mother's code status to DNR. Ethel was able to complete a living will before she was discharged from [facility] the [facility] time , so we do know that she would not want a G-tube. Guerita called me back around 1345 to inquire about antipsychotic treatment plan and concern about dehydration. I informed her that I haven't seen any orders, but the psychiatrist had mentioned a couple other medications that we might consider. Given her slightly low BP and poor oral intake will give 1L of IVF to see if this has an effect on her mental status and hemodynamics. 01/05/17 Electrolytes are worse despite 1L of IVF yesterday - Na up to 146, K up to 5.3 and renal functions have worsened (BUN 28 and Cr 1.5). Will give additional liter of 1/2 NS today. She is not taking in anything by mouth. She continues to have hallucinations, and in discussion with staff they are going to trial Haldol again today. HR bradycardic yesterday but elevated on morning VS (96). I suspect that if there is minimal response to the Haldol and IVF, then we will need to have another discussion with Gueritaammy's daughter/DPOA about end-of- life care. Expect Dr. Canales to see the patient tomorrow am. 01/06/17 Ethel continues to show decreased alertness however will respond to verbal commands. Does follow commands and will squeeze both hands however keeps left arm contracted. Withdrawals to pain to Bilateral lower ext. Electrolytes have improved on D5W 1/2 NS IV fluids. NA decreased to 143, Potassium 4.7 and renal function improved down to 1.1. BP this morning is good at 139/71. Again daughter did confirm DNR status last evening Will continue to follow carefully. Will examine again later this afternoon. JIMENA MATOS MD 01/07/17 1504: Assessment & Plan Assessment I have independently evaluated and examined this patient. I reviewed the chart, the patient's history, and the C[employer] BUTTER FILTER OPERATOR's documented findings as above. We discussed and formulated the assessment and plan as above with additions as below: Ethel was sleeping when evaluated. She mumble slightly in response to my questions but did not open her eyes. Respirations are nonlabored and cardiac rhythm regular with normal heart tones. Rate is clearly improved from prior days with vital signs demonstrating rates of 60s to 70s over the past 24 hours. She was moving her upper extremities spontaneously in her sleep. Nursing indicates improved oral intake. Twelve-lead EKG reviewed by myself demonstrating erratic baseline but sinus rhythm at 68 with QT of 415 ms, QTC 433 ms. Continued improvement. TIANNA SHARP APRN Jan 07, 2017 11:59 JIMENA MATOS MD Jan 07, 2017 15:04
[2017-01-07 16:03] VITALS: BP_SYST 137; PULSE 58; RESP 16; TEMP 96.8; O2SAT 96
[2017-01-07 16:07] VITALS: BP 137/86; PULSE 58; RESP 16; TEMP 96.8; O2SAT 96
--- NOTE | 2017-01-07 18:55 | NUR ---
IVL IVL occluded, removed and will pass on to next shift
--- NOTE | 2017-01-07 18:55 | NUR ---
Shift Summary Patient has been up and either in the recliner or wheelchair almost all day only laying down for about 1.5 hours this afternoon for a nap. She eats 50%-75% of all three meals and has requested ice water often. Her family has been here most of the shift and she appears to be enjoying their visit. No visual hallucinations observed by this RN or by others. She has been cooperative with cares, takes her medications whole and is able to make her needs known. Presently she is in the day room with staff watching the basketball game
--- NOTE | 2017-01-07 19:02 | GENPN ---
[facility] Subjective Date DATE: 01/07/17 TIME: 18:46 Subjective/Severity of Illness Medications Current Medications Medications (Trade) Dose Ordered Sig/Kelley Start Time Stop Time Status Last Admin Dose Admin Amiodarone HCl (Pacerone) 200 mg DAILY 01/04/17 09:00 Future Hold Amlodipine Besylate (Norvasc) 5 mg DAILY 01/04/17 09:00 01/07/17 09:10 5 MG Aspirin (ASA) 325 mg HS 01/03/17 21:00 Future Hold 01/03/17 19:48 325 MG Cyclosporine (Restasis Eye Drops) 1 drop BID 01/03/17 21:00 Future Hold 01/04/17 09:00 1 DROP Famotidine (Pepcid) 40 mg DAILY 01/04/17 09:00 Future Hold Levothyroxine Sodium (Synthroid) 75 mcg ACB 01/04/17 06:30 Future Hold 01/05/17 08:54 75 MCG Lisinopril (Prinivil) 20 mg DAILY 01/04/17 09:00 Future Hold Senna/Docusate Sodium (Senna Plus) 1 tab BID 01/03/17 21:00 Future Hold 01/05/17 08:54 1 TAB Ygiyt-7-Owgr Ethyl Esters (Lovaza) 1 g BID 01/03/17 21:00 Future Hold 01/03/17 19:48 1 G Miscellaneous Medication (May use PRN orders) 1 PRN PRN 01/03/17 12:00 Lorazepam (Ativan) 0.5 mg Q6H PRN 01/03/17 12:00 Future Hold Lorazepam (Ativan) 0.5 mg Q6H PRN 01/03/17 12:00 Future Hold Lorazepam (Ativan Intensol) 0.5 mg Q6H PRN 01/03/17 14:15 Future Hold 01/04/17 02:33 0.5 MG Acetaminophen 1 to 2 tabs for pa... Q5H PRN 01/03/17 18:15 Future hold 01/07/17 11:40 650 MG Sodium Chloride 1,000 ml @ 100 mls/hr Q10H 01/04/17 13:45 01/05/17 08:46 DC 01/04/17 15:30 100 MLS/HR Sodium Chloride (0.45% NS) 1,000 ml @ 75 mls/hr [id number] 01/05/17 09:30 01/05/17 18:09 DC 01/05/17 09:33 75 MLS/HR Olanzapine (Zyprexa Zydis) 2.5 mg HS 01/05/17 21:00 01/05/17 21:00 DC Olanzapine (Zyprexa Zydis) 1.25 mg Q6HR PRN 01/05/17 13:00 01/05/17 16:13 DC Haloperidol Lactate 0.25 mg 0.25 mg HS 01/05/17 21:00 01/07/17 18:42 DC 01/06/17 23:28 0.25 MG Dextrose/Sodium Chloride (D5-1/2 NS) 1,000 ml @ 75 mls/hr [id number] 01/05/17 18:15 01/07/17 11:21 DC 01/06/17 21:23 75 MLS/HR Subjective Patient seen and chart reviewed. Patient was seen in the company of her younger brother, his daughter and his son-in law. She was seen to be alert and oriented to person but disoriented to place and time. She is confused but was able to hold more lucid conversation better today. She was said to have had about 75% of her breakfast this morning. There is no behavioral disturbance. Staff reports that she was restless over the night. She appears to be tolerating her medication and no acute or chronic EPS. Discussed with patient's family about the side effect of Haloperidol . They were told about the possible risk of anti-psychotic in general causing sudden in elderly people greater than 65 years. Time of Service: 16:15 Start Time: 16:15 Stop Time: 16:30 Care >50% of this visit spent in counseling/coordination care. [facility] Exam Vitals Vital Signs Date Time Temp Pulse Resp B/P Pulse Ox O2 Delivery O2 Flow Rate FiO2 01/07/17 16:07 96.8 58 16 137/86 96 Room Air Physical examination performed by the hospitalist. Height (Feet): 5 Height (Inches): 3.00 Mental Status Exam Muscle Strength/Tone: Weak Dressing: Casual Grooming: Fair Attitude: Cooperative Motor Activity: Retardation Eye Contact: Fair Speech: Slowed Volume: Soft Rhythm: Slurred Sensory: Alert Orientation: Disoriented to time, Disoriented to place Mood: Depressed Affect: Restricted Rate of Thoughts: Delayed Thought Organization: Tangential Associations: Loose-associations Abstract Reasoning: Impaired, concrete Computation: Poor Computation Thought Content: Delusions Perception/Psychotic: Psychotic Current Hallucinations: Visual Attention Span/Concentration: Short Span Language: Naming Impaired Fund of Knowledge: Poor fund of knowledge Memory: Poor-immediate, Poor-recent, Poor-remote Suicidal Ideation: None Homicidal Ideation: None Insight: Poor Judgment: Poor Impulse Control: Poor Laboratory Tests Test 01/07/17 04:37 01/07/17 06:23 Turbidity < 20 Sodium Level 142MEQ/L Potassium Level 4.3MEQ/L Chloride Level 110MEQ/L Carbon Dioxide Level 28MEQ/L Anion Gap 4MEQ/L Blood Urea Nitrogen 17.0MG/DL Creatinine 1.2MG/DL Glomerular Filtration Rate Calc 43 BUN/Creatinine Ratio 14RATIO Glucose Level 89MG/DL Calculated Osmolality 274MOSM/KG Calcium Level 8.1MG/DL Icterus Index < 2 Chemistry Specimen Hemolysis < 15 Glucometer 83mg/dL Assessment and Plan (1) Delirium due to multiple etiologies Assessment: Suspect Plan: Will order at EKG to check QT. Will hold Haldol and other antipsychotics at this time. Team will discuss case with cigarette seller on Wednesday. Would hope to get pt off of Amiodarone if possible but if not possible then would recommend Latuda or Abilify as these seem to have the best evidence for not prolonging QT. 01/04/17: Discontinue Lorazepam. Cont to monitor patient in the unit 01/05/17: Hold Tylenol, Aspirin, Cyclosporine,Levothyroxine, [place] 3 fatty acid and Cristina. Start Haloperidol 0.25mg IV q hs. Fasting blood sugar daily 01/06/17: Cont current care and encourage oral intake when possible. 01/07/17: DC IV Haloperidol and change it Haloperidol oral 0.5mg q hs. The plan will be change Haloperidol to possibly Olanzapine in future. (2) Major neurocognitive disorder Assessment: Suspect (3) Unspecified schizophrenia, unspecified condition (4) Hypothyroid MAIDA WALLER MD Jan 07, 2017 18:54
[2017-01-07 19:20] VITALS: BP 114/59; PULSE 54; RESP 16; TEMP 96.6; O2SAT 97
[2017-01-07] MEDS: HALOPERIDOL 0.5 MG TABLET PO SCH (20:04)
--- NOTE | 2017-01-07 22:42 | NUR ---
Status/PRN Assumed patient care at 1900 and assessment completed at 1919. Patient is FELIPE to person/place/year (states that the month is "close to February"). Sitting in dayroom recliner at time of assessment; dozes/reads paper. Pleasant and cooperative; speech is mumbled but she answers questions/follows commands appropriately (wears bilateral hearing aids). Reports fatigue but denies pain at time of assessment. VS are stable. Family in visiting with patient at 2019 (daughter Lauryn and son-in-law); patient is conversational/smiles. Assists with shower as able;ambulates with walker and x1 assist (gait is slightly unsteady - she reports weakness). Readily compliant with medications. No difficulty is noted with swallowing thickened liquids. At HS, patient c/o headache/arthritis to neck (unable to rate). Tylenol 650 mg. given po at 2148. Patient requests heating pad to neck; phone order received from Dr. Beauchamp at 2149. No hallucinations/delusions are noted. Patient is resting quietly at the current time.
[2017-01-08] VITALS: BP 153/62; PULSE 60; RESP 14; TEMP 96.6; O2SAT 98
--- NOTE | 2017-01-08 01:00 | NUR ---
Chart Check 24 hour chart check completed
--- NOTE | 2017-01-08 06:10 | NUR ---
Summary Patient slept 6.5 hours this shift. FELIPE to person, place, and year. Tolerates thickened liquids and takes medications whole without incidence. No hallucinations noted last evening; overnight, she points to an empty space in her room and asks, "Who's that over there?" She redirects easily and no other hallucinations are noted. She states that the heating pad to her neck and prn Tylenol were effective in relieving her headache/neck pain. Continent of urine and uses call cristina appropriately to notify staff of needs. Fasting BGM is 61. Patient is asymptomatic - takes thickened apple juice and refuses additional po fluid/snack. Resting quietly at the current time. Bed alarm is on and side rails are up x2.
[2017-01-08 07:28] VITALS: BP 144/68; PULSE 61; RESP 16; TEMP 97.8; O2SAT 93
[2017-01-08 07:49] VITALS: PULSE 61
--- NOTE | 2017-01-08 07:51 | NUR ---
Status Pt awake and sitting in dayroom, dressed this morning. Pt is oriented to self and place; states that she just asked someone what the date was and was able to remember and say it was January 08. She states that she must have alzheimers or something because time has went by really fast; states that there are several days she doesn't remember. Pt denies any pain or discomfort at this time. Pt is eating breakfast at this time. Will continue to monitor.
[2017-01-08] MEDS: AMLODIPINE 5 MG TABLET PO SCH (08:13)
--- NOTE | 2017-01-08 11:45 | NUR ---
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 Pt. is much improved from yesterday. She is alert and aware of her surroundings. She raises her hand in greeting to this SW and mumbles "hello." Pt. does not participate in group because she is with family.
--- NOTE | 2017-01-08 13:37 | NUR ---
SPEECH SCREEN RECEIVED NURSING REPORTS PATIENT IS MORE ALERT AND COOPERATIVE. RECOMMEND UPGRADING TO MECHANICAL SOFT WITH GROUND MEATS WITH NECTAR THICKENED LIQUIDS IF LOC REMAINS STABLE AND UPGRADE IS WARRANTED. MAY HAVE THIN TRIALS OF WATER WITH SUPERVISION FROM NURSING STAFF IF NO S/S OF ASPIRATION ARE PRESENT.
--- NOTE | 2017-01-08 15:09 | NUR ---
Nutrition Risk F/U Diet Order: Dysphagia Pureed diet with nectar thick liquid Intake is improved with pt taking 50% at breakfast, and 75% at lunch and dinner on 01/07 in addition to mighty shake for a snack. On 01/08 pt consumed 50% of breakfast and 75% of lunch. Pt enjoying the mighty shakes and magic cup. [employer] notified to continue sending supplements. RD available at ext [phone]
[2017-01-08 16:00] VITALS: BP 170/62; PULSE 61; RESP 16; TEMP 97.6; O2SAT 91
--- NOTE | 2017-01-08 16:39 | GENPN ---
[facility] Subjective Date DATE: 01/08/17 TIME: 16:36 Subjective/Severity of Illness Medications Current Medications Medications (Trade) Dose Ordered Sig/Kelley Start Time Stop Time Status Last Admin Dose Admin Amiodarone HCl (Pacerone) 200 mg DAILY 01/04/17 09:00 Future Hold Amlodipine Besylate (Norvasc) 5 mg DAILY 01/04/17 09:00 01/08/17 08:13 5 MG Aspirin (ASA) 325 mg HS 01/03/17 21:00 Future Hold 01/03/17 19:48 325 MG Cyclosporine (Restasis Eye Drops) 1 drop BID 01/03/17 21:00 Future Hold 01/04/17 09:00 1 DROP Famotidine (Pepcid) 40 mg DAILY 01/04/17 09:00 Future Hold Levothyroxine Sodium (Synthroid) 75 mcg ACB 01/04/17 06:30 Future Hold 01/05/17 08:54 75 MCG Lisinopril (Prinivil) 20 mg DAILY 01/04/17 09:00 Future Hold Senna/Docusate Sodium (Senna Plus) 1 tab BID 01/03/17 21:00 Future Hold 01/05/17 08:54 1 TAB Ulggk-2-Htna Ethyl Esters (Lovaza) 1 g BID 01/03/17 21:00 Future Hold 01/03/17 19:48 1 G Miscellaneous Medication (May use PRN orders) 1 PRN PRN 01/03/17 12:00 Lorazepam (Ativan) 0.5 mg Q6H PRN 01/03/17 12:00 Future Hold Lorazepam (Ativan) 0.5 mg Q6H PRN 01/03/17 12:00 Future Hold Lorazepam (Ativan Intensol) 0.5 mg Q6H PRN 01/03/17 14:15 Future Hold 01/04/17 02:33 0.5 MG Acetaminophen 1 to 2 tabs for pa... Q5H PRN 01/03/17 18:15 Future hold 01/07/17 21:49 650 MG Sodium Chloride 1,000 ml @ 100 mls/hr Q10H 01/04/17 13:45 01/05/17 08:46 DC 01/04/17 15:30 100 MLS/HR Sodium Chloride (0.45% NS) 1,000 ml @ 75 mls/hr [id number] 01/05/17 09:30 01/05/17 18:09 DC 01/05/17 09:33 75 MLS/HR Olanzapine (Zyprexa Zydis) 2.5 mg HS 01/05/17 21:00 01/05/17 21:00 DC Olanzapine (Zyprexa Zydis) 1.25 mg Q6HR PRN 01/05/17 13:00 01/05/17 16:13 DC Haloperidol Lactate 0.25 mg 0.25 mg HS 01/05/17 21:00 01/07/17 18:42 DC 01/06/17 23:28 0.25 MG Dextrose/Sodium Chloride (D5-1/2 NS) 1,000 ml @ 75 mls/hr [id number] 01/05/17 18:15 01/07/17 11:21 DC 01/06/17 21:23 75 MLS/HR Haloperidol (Haldol) 0.5 mg HS 01/07/17 21:00 01/07/17 20:04 0.5 MG Subjective Patient seen and chart reviewed. Case discussed with treatment team. Nursing reports pt is doing better. Sleeping well and appetite has improved. One episode of visual hallucinations last night but these are improving as well. On face to face the pt is pleasant and cooperative. She is alert and oriented x 3. She reports tolerating her medication well. SHe denies any psychotic symptoms. Tolerating meds. Time of Service: 16:15 Start Time: 16:15 Stop Time: 16:30 Care >50% of this visit spent in counseling/coordination care. [facility] Exam Vitals Vital Signs Date Time Temp Pulse Resp B/P Pulse Ox O2 Delivery O2 Flow Rate FiO2 01/08/17 07:49 61 01/08/17 07:28 97.8 16 144/68 93 Room Air Physical examination performed by the hospitalist. Height (Feet): 5 Height (Inches): 3.00 Mental Status Exam Muscle Strength/Tone: Normal Dressing: Casual Grooming: Good Attitude: Cooperative Motor Activity: Retardation Eye Contact: Good Speech: Normal Volume: Normal Rhythm: Appropriate Rhythm Sensory: Alert Orientation: Oriented X4 Mood: Euthymic Affect: Congruent Rate of Thoughts: Appropriate Rate Thought Organization: [place] Associations: Intact Abstract Reasoning: Intact, able to abstract Thought Content: Normal Perception/Psychotic: Hx psychosis,not current Attention Span/Concentration: Short Span Fund of Knowledge: Appropriate Memory: Grossly Intact Suicidal Ideation: None Homicidal Ideation: None Insight: Fair Judgment: Fair Impulse Control: Fair Laboratory Tests Test 01/08/17 05:30 Glucometer 61mg/dL Assessment and Plan (1) Delirium due to multiple etiologies Assessment: Suspect Plan: Will order at EKG to check QT. Will hold Haldol and other antipsychotics at this time. Team will discuss case with taker off drying kiln on Wednesday. Would hope to get pt off of Amiodarone if possible but if not possible then would recommend Latuda or Abilify as these seem to have the best evidence for not prolonging QT. 01/04/17: Discontinue Lorazepam. Cont to monitor patient in the unit 01/05/17: Hold Tylenol, Aspirin, Cyclosporine,Levothyroxine, Neon 3 fatty acid and Cristian. Start Haloperidol 0.25mg IV q hs. Fasting blood sugar daily 01/06/17: Cont current care and encourage oral intake when possible. 01/07/17: DC IV Haloperidol and change it Haloperidol oral 0.5mg q hs. The plan will be change Haloperidol to possibly Olanzapine in future. 01/08/17 Continue current care (2) Major neurocognitive disorder Assessment: Suspect (3) Unspecified schizophrenia, unspecified condition (4) Hypothyroid Cont. current psych. meds MARYLIN SEWELL MD Jan 08, 2017 16:39
--- NOTE | 2017-01-08 18:08 | NUR ---
Summary Pt has done well today. She has eaten well, visited with family, and read the newspaper. Pt has walked x1 assist with FWW, she has been oriented to person and place; able to remember what date was after she asked for it. Pt drank well today, took medications with no issues. She was able to let staff know when she needed to use restroom or anything else. She was able to verbalize well what she needed or did not need. No evidence of her having any hallucinations on this shift. She visited with family during lunch time and again at dinner time. Pt is currently in her room, sitting in her recliner, talking with her daughter and grandson.
[2017-01-08] MEDS: HALOPERIDOL 0.5 MG TABLET PO SCH (19:32)
[2017-01-08 21:45] VITALS: PULSE 68; RESP 16
[2017-01-08 23:54] VITALS: BP 135/61; PULSE 52; RESP 16; TEMP 96.6; O2SAT 98
--- NOTE | 2017-01-09 07:15 | NUR ---
summary Arrived on shift, patient was in the dayroom wanting to get ready for bed. Staff helped patient with hs cares. Patient appears to be getting stronger and more independent than previous shift. Patient participated to the best of her ability during cares. No delusions or hallucinations noted. Patient denied pain and discomfort. Once in bed patient was sitting up reading when daughter and grandson stopped by to visit. Family was on unit for about 45min. Patient appeared to have a bright and happy affect during visitation. Patient slept 5.5 hours. No prns given. patient is currently asleep in bed with the bed alarm on, rails upx2, and call light is in reach.
[2017-01-09] MEDS: AMLODIPINE 5 MG TABLET PO SCH (08:50)
[2017-01-09 08:52] VITALS: BP 137/67; PULSE 65; RESP 18; TEMP 97.8; O2SAT 95
--- NOTE | 2017-01-09 09:21 | NUR ---
Status Patient awakes on her own this morning, uses call light and asks to take a shower. Staff provided set-up care only, helped to wash and dry her back otherwise she completed all of her hygiene cares independently. She uses the walker appropriately, gait is mostly steady - moves sideways sometimes but is able to catch herself. She ate 50% of breakfast without difficulty and is in her room now applying make-up
--- NOTE | 2017-01-09 11:16 | GENPN ---
[facility] Subjective Date DATE: 01/09/17 TIME: 11:13 Subjective/Severity of Illness Medications Current Medications Medications (Trade) Dose Ordered Sig/Kelley Start Time Stop Time Status Last Admin Dose Admin Amiodarone HCl (Pacerone) 200 mg DAILY 01/04/17 09:00 Future Hold Amlodipine Besylate (Norvasc) 5 mg DAILY 01/04/17 09:00 01/09/17 08:50 5 MG Aspirin (ASA) 325 mg HS 01/03/17 21:00 Future Hold 01/03/17 19:48 325 MG Cyclosporine (Restasis Eye Drops) 1 drop BID 01/03/17 21:00 Future Hold 01/04/17 09:00 1 DROP Famotidine (Pepcid) 40 mg DAILY 01/04/17 09:00 Future Hold Levothyroxine Sodium (Synthroid) 75 mcg ACB 01/04/17 06:30 Future Hold 01/05/17 08:54 75 MCG Lisinopril (Prinivil) 20 mg DAILY 01/04/17 09:00 Future Hold Senna/Docusate Sodium (Senna Plus) 1 tab BID 01/03/17 21:00 Future Hold 01/05/17 08:54 1 TAB Kbhmv-5-Yoiu Ethyl Esters (Lovaza) 1 g BID 01/03/17 21:00 Future Hold 01/03/17 19:48 1 G Miscellaneous Medication (May use PRN orders) 1 PRN PRN 01/03/17 12:00 Lorazepam (Ativan) 0.5 mg Q6H PRN 01/03/17 12:00 Future Hold Lorazepam (Ativan) 0.5 mg Q6H PRN 01/03/17 12:00 Future Hold Lorazepam (Ativan Intensol) 0.5 mg Q6H PRN 01/03/17 14:15 Future Hold 01/04/17 02:33 0.5 MG Acetaminophen 1 to 2 tabs for pa... Q5H PRN 01/03/17 18:15 Future hold 01/07/17 21:49 650 MG Sodium Chloride 1,000 ml @ 100 mls/hr Q10H 01/04/17 13:45 01/05/17 08:46 DC 01/04/17 15:30 100 MLS/HR Sodium Chloride (0.45% NS) 1,000 ml @ 75 mls/hr [id number] 01/05/17 09:30 01/05/17 18:09 DC 01/05/17 09:33 75 MLS/HR Olanzapine (Zyprexa Zydis) 2.5 mg HS 01/05/17 21:00 01/05/17 21:00 DC Olanzapine (Zyprexa Zydis) 1.25 mg Q6HR PRN 01/05/17 13:00 01/05/17 16:13 DC Haloperidol Lactate 0.25 mg 0.25 mg HS 01/05/17 21:00 01/07/17 18:42 DC 01/06/17 23:28 0.25 MG Dextrose/Sodium Chloride (D5-1/2 NS) 1,000 ml @ 75 mls/hr [id number] 01/05/17 18:15 01/07/17 11:21 DC 01/06/17 21:23 75 MLS/HR Haloperidol (Haldol) 0.5 mg HS 01/07/17 21:00 01/08/17 19:32 0.5 MG Subjective Patient seen and chart reviewed. Case discussed with nursing. Nursing reports pt is doing well. Sleeping well and has a good appetite. No behaviors noted. On face to face the pt states she is doing well. She reports she had one visual hallucination last night but realizes it was not real. She is alert and oriented x 3. Voices no concerns at this time. Time of Service: 11:15 Start Time: 11:15 Stop Time: 11:30 Care >50% of this visit spent in counseling/coordination care. [facility] Exam Vitals Vital Signs Date Time Temp Pulse Resp B/P Pulse Ox O2 Delivery O2 Flow Rate FiO2 01/09/17 08:52 97.8 65 18 137/67 95 Room Air Physical examination performed by the hospitalist. Height (Feet): 5 Height (Inches): 3.00 Mental Status Exam Muscle Strength/Tone: Normal Dressing: Casual Grooming: Good Attitude: Cooperative Motor Activity: Normal Eye Contact: Good Speech: Normal Volume: Soft Rhythm: Appropriate Rhythm Sensory: Alert Orientation: Oriented X4 Mood: Euthymic Affect: Congruent Rate of Thoughts: Delayed Thought Organization: [place] Associations: Intact Thought Content: Normal Perception/Psychotic: Hx psychosis,not current Attention Span/Concentration: Short Span Fund of Knowledge: Appropriate Memory: Grossly Intact Suicidal Ideation: None Homicidal Ideation: None Insight: Limited Judgment: Limited Impulse Control: Fair Laboratory Tests Test 01/09/17 06:11 Glucometer 80mg/dL Assessment and Plan (1) Delirium due to multiple etiologies Assessment: Suspect Plan: Will order at EKG to check QT. Will hold Haldol and other antipsychotics at this time. Team will discuss case with agency cashier on Wednesday. Would hope to get pt off of Amiodarone if possible but if not possible then would recommend Latuda or Abilify as these seem to have the best evidence for not prolonging QT. 01/04/17: Discontinue Lorazepam. Cont to monitor patient in the unit 01/05/17: Hold Tylenol, Aspirin, Cyclosporine,Levothyroxine, [place] 3 fatty acid and Cristina. Start Haloperidol 0.25mg IV q hs. Fasting blood sugar daily 01/06/17: Cont current care and encourage oral intake when possible. 01/07/17: DC IV Haloperidol and change it Haloperidol oral 0.5mg q hs. The plan will be change Haloperidol to possibly Olanzapine in future. 01/08/17 Continue current care 01/09/17 Continue current care (2) Major neurocognitive disorder Assessment: Suspect (3) Unspecified schizophrenia, unspecified condition (4) Hypothyroid Cont. current psych. meds MARYLIN SWEELL MD Jan 09, 2017 11:16
--- NOTE | 2017-01-09 11:37 | NUR ---
SPEECH SCREEN RECEIVED PATIENT UPRIGHT IN BEDSIDE CHAIR WITH FAMILY MEMBERS PRESENT. PATIENT GAVE HERSELF SIPS OF THIN LIQUID VIA CUP WITH PROMPT SWALLOW RESPONSE, FAIR HYOLARYNGEAL ELEVATION AND NO CLINICAL S/S OF ASPIRATION. PATIENT THEN MASTICATED A MUKUND CRACKER WITHOUT DIFFICULTY. NO ORAL RESIDUE. FAIR HYOLARYNGEAL ELEVATION. UPGRADE IN DIET TO CHOPPED MEATS WITH THIN LIQUIDS. RN NOTIFIED. DIET ORDER CHANGED UNDER ORDER FROM DR. SEWELL. COOPER GIBSON, [facility]-LIBRARY MEDIA SPECIALIST
[2017-01-09 16:30] VITALS: BP 129/68; PULSE 78; RESP 18; TEMP 97.8; O2SAT 98
--- NOTE | 2017-01-09 18:33 | NUR ---
Shift Summary This morning patient's daughter, son-in-law and grandson were here visiting in her room; they stayed for lunch (she ate 100%) then she napped for an hour and a half this afternoon. She ambulates well with FWW, gait is steady and she is aware of limitations. She has been cooperative and pleasant, has been polite and uses her call-light appropriately. Family was here again at supper (she ate 75%) and have since left. She is reading in her room right now, sitting in the recliner with chair alarm applied and call cristina within reach
[2017-01-09 20:05] VITALS: PULSE 66; RESP 18
[2017-01-09 20:12] VITALS: BP 154/62; PULSE 57; RESP 16; TEMP 95.6; O2SAT 95
[2017-01-09] MEDS: HALOPERIDOL 0.5 MG TABLET PO SCH (21:02)
--- NOTE | 2017-01-10 06:07 | NUR ---
Summary Arrived on shift, patient was sitting in room reading. Patient was alert and oriented x2. Pleasant and cooperative with assessment and cares. Patient denied pain or discomfort. No hallucinations or delusions noted. Patient is able to make needs known, uses call light appropriately. Patient slept 4.75 hours, patient was only up during the night to use the restroom. No prns given.
[2017-01-10] MEDS: AMLODIPINE 5 MG TABLET PO SCH (07:45)
[2017-01-10 08:00] VITALS: BP 131/59; PULSE 88; RESP 16; RESP 18; TEMP 96.8; O2SAT 97
[2017-01-10] MEDS: CycloSPORINE 0.05% Eye Drops 0.4ml DROPERETTE BOTH EYES SCH ×2 (09:00→20:02)
--- NOTE | 2017-01-10 10:49 | GENPN ---
[facility] Subjective Date DATE: 01/10/17 TIME: 10:47 Subjective/Severity of Illness Medications Current Medications Medications (Trade) Dose Ordered Sig/Kelley Start Time Stop Time Status Last Admin Dose Admin Amiodarone HCl (Pacerone) 200 mg DAILY 01/04/17 09:00 Future Hold Amlodipine Besylate (Norvasc) 5 mg DAILY 01/04/17 09:00 01/10/17 07:45 5 MG Aspirin (ASA) 325 mg HS 01/03/17 21:00 Future Hold 01/03/17 19:48 325 MG Cyclosporine (Restasis Eye Drops) 1 drop BID 01/03/17 21:00 Future hold 01/04/17 09:00 1 DROP Famotidine (Pepcid) 40 mg DAILY 01/04/17 09:00 Future Hold Levothyroxine Sodium (Synthroid) 75 mcg ACB 01/04/17 06:30 Future Hold 01/05/17 08:54 75 MCG Lisinopril (Prinivil) 20 mg DAILY 01/04/17 09:00 Future Hold Senna/Docusate Sodium (Senna Plus) 1 tab BID 01/03/17 21:00 Future Hold 01/05/17 08:54 1 TAB Omorw-8-Hpys Ethyl Esters (Lovaza) 1 g BID 01/03/17 21:00 Future Hold 01/03/17 19:48 1 G Miscellaneous Medication (May use PRN orders) 1 PRN PRN 01/03/17 12:00 Lorazepam (Ativan) 0.5 mg Q6H PRN 01/03/17 12:00 Future Hold Lorazepam (Ativan) 0.5 mg Q6H PRN 01/03/17 12:00 Future Hold Lorazepam (Ativan Intensol) 0.5 mg Q6H PRN 01/03/17 14:15 Future Hold 01/04/17 02:33 0.5 MG Acetaminophen 1 to 2 tabs for pa... Q5H PRN 01/03/17 18:15 Future hold 01/07/17 21:49 650 MG Sodium Chloride 1,000 ml @ 100 mls/hr Q10H 01/04/17 13:45 01/05/17 08:46 DC 01/04/17 15:30 100 MLS/HR Sodium Chloride (0.45% NS) 1,000 ml @ 75 mls/hr [id number] 01/05/17 09:30 01/05/17 18:09 DC 01/05/17 09:33 75 MLS/HR Olanzapine (Zyprexa Zydis) 2.5 mg HS 01/05/17 21:00 01/05/17 21:00 DC Olanzapine (Zyprexa Zydis) 1.25 mg Q6HR PRN 01/05/17 13:00 01/05/17 16:13 DC Haloperidol Lactate 0.25 mg 0.25 mg HS 01/05/17 21:00 01/07/17 18:42 DC 01/06/17 23:28 0.25 MG Dextrose/Sodium Chloride (D5-1/2 NS) 1,000 ml @ 75 mls/hr [id number] 01/05/17 18:15 01/07/17 11:21 DC 01/06/17 21:23 75 MLS/HR Haloperidol (Haldol) 0.5 mg HS 01/07/17 21:00 01/09/17 21:02 0.5 MG Subjective Patient seen and chart reviewed. Case discussed with nursing. Nursing reports pt is doing well. Sleeping well and has a good appetite. No behaviors noted. On face to face the pt states she is doing well. She reports she feels back near her baseline. Denies VH or any psychotic symptoms. Tolerating meds Time of Service: 10:45 Start Time: 10:45 Stop Time: 11:00 Care >50% of this visit spent in counseling/coordination care. [facility] Exam Vitals Vital Signs Date Time Temp Pulse Resp B/P Pulse Ox O2 Delivery O2 Flow Rate FiO2 01/10/17 08:00 88 18 01/10/17 08:00 96.8 131/59 97 Room Air Physical examination performed by the hospitalist. Height (Feet): 5 Height (Inches): 3.00 Mental Status Exam Muscle Strength/Tone: Normal Dressing: Casual Grooming: Good Attitude: Cooperative Motor Activity: Normal Eye Contact: Good Speech: Normal Volume: Normal Rhythm: Appropriate Rhythm Sensory: Alert Orientation: Oriented X4 Mood: Euthymic, Neutral Affect: Congruent Rate of Thoughts: Appropriate Rate Thought Organization: Organized Associations: Intact Abstract Reasoning: Intact, able to abstract Thought Content: Normal Perception/Psychotic: Hx psychosis,not current Attention Span/Concentration: Short Span Fund of Knowledge: Appropriate Memory: Poor-immediate Suicidal Ideation: None Homicidal Ideation: None Insight: Limited Judgment: Limited Impulse Control: Good Laboratory Tests Test 01/10/17 06:17 Glucometer 90mg/dL Assessment and Plan (1) Delirium due to multiple etiologies Assessment: Suspect Plan: Will order at EKG to check QT. Will hold Haldol and other antipsychotics at this time. Team will discuss case with radio maintainer on Wednesday. Would hope to get pt off of Amiodarone if possible but if not possible then would recommend Latuda or Abilify as these seem to have the best evidence for not prolonging QT. 01/04/17: Discontinue Lorazepam. Cont to monitor patient in the unit 01/05/17: Hold Tylenol, Aspirin, Cyclosporine,Levothyroxine, [place] 3 fatty acid and Cristina. Start Haloperidol 0.25mg IV q hs. Fasting blood sugar daily 01/06/17: Cont current care and encourage oral intake when possible. 01/07/17: DC IV Haloperidol and change it Haloperidol oral 0.5mg q hs. The plan will be change Haloperidol to possibly Olanzapine in future. 01/08/17 Continue current care 01/09/17 Continue current care 01/10/17 Continue current care (2) Major neurocognitive disorder Assessment: Suspect (3) Unspecified schizophrenia, unspecified condition (4) Hypothyroid Cont. current psych. meds MARYLIN SEWELL MD Jan 10, 2017 10:49
[2017-01-10 16:00] VITALS: BP 145/62; PULSE 64; RESP 18; TEMP 96.6; O2SAT 98
--- NOTE | 2017-01-10 18:07 | NUR ---
SHIFT SUMMARY Pt is compliant with all medications this shift. She continues to eat and drink well. Ate 100% of all her meals. Drank approx 900 cc's this shift. Pt is able to communicate her needs with staff as desired. Pt did not experience any auditory or hallucinations this shift as evidenced by her denial and none witnessed by staff or family. Family came to visit this am before they went back to another state. Pt was smiling and laughing with them when they were here. She is currently in her room, sitting in a chair, reading a book.
[2017-01-10 19:25] VITALS: BP 170/56; PULSE 56; RESP 18; TEMP 96.8; O2SAT 96
[2017-01-10] MEDS: HALOPERIDOL 0.5 MG TABLET PO SCH (20:02)
--- NOTE | 2017-01-11 01:16 | NUR ---
Status Assumed patient care at 1900 and assessment completed at 192. Patient is in room at time of assessment, sitting in recliner; looks out the window and spends time journaling/reading. [place] and wears bilateral hearing aids. ALOx3 and is pleasant, cooperative, and conversational with staff. Denies any pain/discomfort or anxiety. Denies hallucinations and none are observed. VS are stable (HR 56). Continent of urine and able to notify staff of needs. Denies SOA - fine opening crackles left base and clears with cough/deep breathe (later auscultation is clear). Activity, cough/deep breathe encouraged and patient states understanding. Ambulates with walker and stand-by assist. Gait is steady. Performs self-care independently; set-up assist is provided and patient is accepting/appreciative of staff assistance when needed. Readily compliant with/knowledgeable of HS medication. Reports that she is eating/drinking well although she states she has to "make myself eat - I'm just not hungry." Documented intake is 100% of all her meals today. Patient spoke to her daughter, Lauryn, on the phone this evening - smiles and engages in conversation. Uses call cristina to notify staff of needs.
[2017-01-11 01:26] VITALS: BP 144/56; PULSE 58; RESP 16; TEMP 97.6; O2SAT 99
--- NOTE | 2017-01-11 01:30 | NUR ---
Chart Check 24 hour chart check completed
--- NOTE | 2017-01-11 06:11 | NUR ---
Summary Patient slept 5.75 hours this shift. ALOx3 and in a pleasant, cooperative, and conversational mood. Makes appropriate eye contact and initiates conversation with staff. Compliant with medications and with adequate po intake. Uses call cristina appropriately throughout the shift to notify staff of needs - up multiple times to void. No evidence or reports of hallucinations. Fasting BGM is 72 and patient is without complaints.
[2017-01-11 08:54] VITALS: BP 168/70; PULSE 54; RESP 18; TEMP 97.8; O2SAT 100
[2017-01-11] MEDS: AMLODIPINE 5 MG TABLET PO SCH (08:55)
[2017-01-11] MEDS: CycloSPORINE 0.05% Eye Drops 0.4ml DROPERETTE BOTH EYES SCH ×2 (08:56→20:26)
--- NOTE | 2017-01-11 10:06 | PNPDOC ---
Subjective Date DATE: 01/11/17 TIME: 09:55 Subjective Ethel is doing very well. She has been A&O x3. When I saw her, she was getting ready for the day. She denied any chest pain or SOA, or any pain. She communicated well. Nursing staff deny any concerns, though seek an order to resume levothyroxine. Objective Vital Signs Vital signs Vital Signs Date Time Temp Pulse Resp B/P Pulse Ox O2 Delivery O2 Flow Rate FiO2 01/11/17 08:54 97.8 54 18 168/70 100 Room Air Height (Feet): 5 Height (Inches): 3.00 Weight (Kilograms): 64.000 General General Appearance: Alert, Orientated x 3, Well Nourished, Well Developed, No Acute Distress Eyes (Brief) Eyes: FOUND: PERRL, NOT FOUND: scleral icterus ENMT (Brief) ENMT: FOUND: mucosa moist, NOT FOUND: pharnyx erythema Respiratory (Brief) Respiratory: FOUND: clear all barajas, equal bilaterally Cardiovascular (Brief) Cardiac: FOUND: regular rate (bradycardic - in the 50s), regular rhythm Abdomen (Brief) Abdominal: NOT FOUND: distended Extremities (Brief) Extremity : Extremity Finding: NOT FOUND: edema Musculoskeletal (Brief) Musculoskeletal: FOUND: other (Kyphosis & scoliosis), NOT FOUND: deformity Integumentary (Brief) Integumentary: FOUND: dry, pink, warm Psychiatric (Brief) Psychiatric: FOUND: alert, attentive, normal affect, oriented Assessment & Plan Problems: (1) Bradycardia Status: Chronic (2) Bigeminy Status: Chronic (3) Unspecified schizophrenia, unspecified condition Status: Acute (4) KISHA (acute kidney injury) Status: Resolved (5) Elevated liver enzymes Status: Chronic Assessment & Plan: Present on admission, AST- 47, ALT- 77. (6) Cognitive and behavioral changes Status: Resolved (7) CAD (coronary artery disease) of artery bypass graft Status: Chronic (8) Restless legs Status: Chronic (9) Carotid artery disease Status: Chronic (10) HTN (hypertension) Status: Chronic (11) Fibromyalgia Status: Chronic (12) Hypothyroid Status: Chronic Plan/Intensity of Service Cognitive status has much improved. She's A&O x3 and communicates well. She is able to take care of personal ADLs independently. HR still bradycardic but stable in the 50s. BP has been elevated, though she is only on Norvasc at this time. Will check BMP now and if renal function is still stable we can consider resuming LISA-I. Defer further discussions regarding pacemaker to Dr. Canales, Ethel, and her daughter. At this time, she is not demonstrating any hemodynamic instability other than asymptomatic mild bradycardia and occasional mild-moderate BP elevations. Psychiatric progress notes reviewed - no recent changes. Remains on Haldol 0.5 mg HS. Code Status Do Not Resuscitate Hospital Course Summary Disclaimer The hospital course summary below is not to be considered part of the above Progress Note. Hospital Course Summary 01/03/17 Agree with admission to [facility] unit for acute behavioral disturbances and changes. In reviewing old records and jail charting Haldol has been given intermittently to patient over the last 3 weeks since her hospitalization. Haldol needs to be avoided since patient is on amiodarone. May need to speak with patient's wallpaper inspector and shipper, Dr. Canales if there is further questions regarding Amiodarone use and questionable tapering. In light of elevated renal function on admission will hold Lisinopril. Will need to monitor blood pressure carefully and may need to increase Norvasc to 10mg if BP is elevated. In regards to elevated LFTS will stop Pepcid as this can hepatitis. Will monitor serial CMP lab to follow. Encourage oral fluid. She may benefit from some IV fluids given acute renal function. She did respond well to IV fluids during per previous hospitalization. I have independently evaluated and examined this patient. I reviewed the chart, the patient's history, and the CRAFT MANAGER's documented findings as above. We discussed and formulated the assessment and plan as above with additions as below: Mrs. Lund was resting comfortably in her room when seen. She had been sedated earlier in the day and did not respond to questions although mumbled occasionally and at one point clearly said "3". Current records and past records have been reviewed-visual hallucinations reported since Haldol discontinued with onset of scientologist auditory hallucinations prior to admission. Patient became physically aggressive with staff [facility] the [facility] prompting ER evaluation and hospitalization. It is noted that the patient was bradycardic during her last admission but when seen by Dr. Canales after discharge she was found to have episodes of bigeminy which were thought to account for previously reported bradycardia and amiodarone was initiated at that time. On examination the patient responds to voice mumbling slightly and follows occasional commands gripping my fingers weakly but symmetrically. Gaze is conjugate and extraocular muscles intact, facial structures are symmetric. Respirations are nonlabored and breath sounds clear anteriorly. Cardiac rhythm is regular. The patient withdraws all 4 extremities to palpation and does so with relatively symmetric power. No tremors are present. EKG has been reviewed by myself demonstrating marked sinus bradycardia with heart rate of 34, subsequently heart rate has been improved by palpation with heart rates in the 50s. Laboratory data reviewed, liver enzymes slightly elevated but minimally changed from last admission. Hold amiodarone in the morning until can review with Dr. Canales. In addition to above diagnoses please add: #1 sinus bradycardia #2 recent bigeminy 01/04/17 Bradycardia persists - discussed with Dr. Canales - offered additional hx - pt has been becoming more forgetful and nervous over the last year; also notes increasing depression since the of her . Does not believe bradycardia is causing lethargy, eve. considering perfusing BP readings. Recommends to hold amiodarone for now (she started it b/c when she was in the office Ethel was in bigeminy in the 40s). Dr. Canales wanted to set her up with Telekenex to measure how much time she was in bigeminy vs. bradycardia. Next step would be a pacemaker, but given her rapid decline this may not be in her best interest. She will come and see the patient on Wednesday. She would prefer updates on status and plans of care. Will discuss goals of care with her brother. Concerned about declining mental status - may need IVF. Unable to take anything oral this morning due to mental status. Straight cath to check UA and UDS Later in the morning I joined Rodger Nolasco, the carlos TEJEDA, in a phone conversation with Ethel Dexter's daughter and DPSHADE. I relayed to her the information from Dr. Canales, and her mother's current mental status. She stated that her mother would not want to have any procedures for her heart if her mind wasn't working properly. Her mother told her that her biggest fear was dementia , and now she is "living her nightmare". She did, however, report that there does seem to be some correlation with low HR and sleepiness - when she was here visiting March at , she became more sleepy and started slurring her words when her heart rate decreased. She understands that at this time, the heart rate medication makes it too risky to continue the Haldol, which had been effective in controlling her hallucinations before. Guerita approved giving IVF at this time , if indicated. If her mental status improves, she may consent to a pacemaker, but would look towards Dr. Canales's and Dr. Hernandez's recommendations as well. She also would like to change her mother's code status to DNR. Ethel was able to complete a living will before she was discharged from [facility] the last time , so we do know that she would not want a G-tube. Guerita called me back around 1345 to inquire about antipsychotic treatment plan and concern about dehydration. I informed her that I haven't seen any orders, but the psychiatrist had mentioned a couple other medications that we might consider. Given her slightly low BP and poor oral intake will give 1L of IVF to see if this has an effect on her mental status and hemodynamics. 01/05/17 Electrolytes are worse despite 1L of IVF yesterday - Na up to 146, K up to 5.3 and renal functions have worsened (BUN 28 and Cr 1.5). Will give additional liter of 1/2 NS today. She is not taking in anything by mouth. She continues to have hallucinations, and in discussion with staff they are going to trial Haldol again today. HR bradycardic yesterday but elevated on morning VS (96). I suspect that if there is minimal response to the Haldol and IVF, then we will need to have another discussion with Guerita, pt's daughter/DPOA about end-of- life care. Expect Dr. Canales to see the patient tomorrow am. 01/06/17March continues to show decreased alertness however will respond to verbal commands. Does follow commands and will squeeze both hands however keeps left arm contracted. Withdrawals to pain to Bilateral lower ext. Electrolytes have improved on D5W 1/2 NS IV fluids. NA decreased to 143, Potassium 4.7 and renal function improved down to 1.1. BP this morning is good at 139/71. Again daughter did confirm DNR status last evening Will continue to follow carefully. Will examine again later this afternoon. 01/11/17 Cognitive status has much improved. She's A&O x3 and communicates well. She is able to take care of personal ADLs independently. HR still bradycardic but stable in the 50s. BP has been elevated, though she is only on Norvasc at this time. Will check BMP now and if renal function is still stable we can consider resuming LISA-I. Defer further discussions regarding pacemaker to Dr. Canales, March, and her daughter. At this time, she is not demonstrating any hemodynamic instability other than asymptomatic mild bradycardia and occasional mild-moderate BP elevations. Psychiatric progress notes reviewed - no recent changes. Remains on Haldol 0.5 mg HS. MILI VIVAS APRN Jan 11, 2017 09:58
[2017-01-11 11:05] LABS: ANION GAP 7 MEQ/L (5-15); BUN/CREATININE RATIO 23 RATIO (6-26); CALCIUM 9.5 MG/DL (8.4-10.2); CHLORIDE 107 MEQ/L (98-107); CO2 - CARBON DIOXIDE 30 MEQ/L (22-30); CREATININE 1.2 MG/DL (0.7-1.2); GLOMERULAR FILTRATION RATE 43; GLUCOSE 169 MG/DL (65-110); POTASSIUM 4.6 MEQ/L (3.6-5); SODIUM 144 MEQ/L (134-144)
[2017-01-11] MEDS: LEVOTHYROXINE 75 MCG TABLET PO SCH (11:10)
--- NOTE | 2017-01-11 11:28 | NUR ---
Malnutrition F/U Diet: Dysphagia: Pureed Diet, Syrup/[place]:Thick Liquid Patient states she's getting tired of the magic cups and would like to stop receiving them. Patient states her appetite has been good and it shows with 100% intakes in the EMR. Patient was agreeable to adding chocolate mighty shakes to her meals. [facility] has been notified of patient's request. RD available @ 4503 Addendum: 01/11/17 at [address] Student charting reviewed by German Professor.
--- NOTE | 2017-01-11 11:42 | NUR ---
IN SCHOOL SUSPENSION AIDE--INDIVIDUAL LSCSW met 1:1 with pt. as she was sitting in day room waiting for lunch to be served. Pt. is alert, Ox3, calm with pleasant mood. Her speech remains slightly slurred but her thoughts are well organized and she is able to effective communicate in coherent manner. Pt. states that she feels she is getting better every day. She denies having any hallucinations and none are noted during this interaction. She asks about discharge plans and this SW explained that the doctor will be in this afternoon and will make that determination after reviewing all notes and getting reports from staff. This SW suggested that pt. will likely discharge soon back to skilled bed at [place] in order to help pt. regain strength and stability. Pt. admitted she was surprised at how weak she had become and how easily exhausted she is by physical exertion.
--- NOTE | 2017-01-11 12:06 | NUR ---
CELEBRITY CHEF ENTREPRENEUR MEDIA PERSONALITY--FAMILY CONTACT [facility] returned phone call to Guerita Frazier ([phone]). She is pt's daughter/DPOA-HC. Guerita wanted update and asked about potential discharge date. This SW explained that Dr. Nuñez would be coming today to do rounds and to have team meeting around 3:00. Updated daughter on pt's progress towards meeting the goals on her [place] plan. Explained that recommended discharge plan would include pt. discharging back to skilled bed at . Daughter was in agreement with the plan. This SW explained that CM would be contacting her regarding discharge plans as soon as recommendation received from physician.
--- NOTE | 2017-01-11 13:00 | NUR ---
Status Pt was cooperative with assessment, cares and medications. pt has been pleasant in affect and had no complaints of pain or discomfort this shift. Pt has had no reports of hallucinations and received no PRN medications this shift. Pt eats well and is able to make her needs known. Her hearing aids are out today being cleaned so she is COMANCHE. Pt spend most of her time in her room reading but will use her call light between meals to call someone to go for a walk. Pt is currently in her room in a chair reading with chair alarm activated.
--- NOTE | 2017-01-11 14:17 | NUR ---
NEERAJ CM REVIEWED PT CHART AND IS ANTICIPATING D/C SOON. CM SENT INFORMATION TO [facility]. CM SPOKE WITH [facility]LI FROM [facility] AND THEY ARE AWARE THAT PT COULD D/C TO [facility] SOON TOMORROW. NEERAJ SPOKE PT DAUGHTER LIZZIE AND SHE IS AWARE OF POSSIBLE D/C TOMORROW. GEORGE IS AWARE THAT CM F/U WHEN INFORMATION IS AVAILABLE. LIZZIE AWARE TO CONTACT CM IF NEEDS ARISE.
[2017-01-11 17:02] VITALS: BP 157/68; PULSE 56; RESP 16; TEMP 96.4; O2SAT 97
--- NOTE | 2017-01-11 18:30 | NUR ---
Summary Pt was pleasant and cooperative the remainder of the shift. She received no PRN medications and had no complaints of pain or discomfort. Pt had no S/S of hallucinations or any other behaviors the remainder of the shift. Pt is currently in the day room with other patients and staff is present.
[2017-01-11 20:20] VITALS: BP 151/62; PULSE 51; RESP 16; TEMP 96.4; O2SAT 97
[2017-01-11] MEDS: HALOPERIDOL 0.5 MG TABLET PO SCH (20:25)
--- NOTE | 2017-01-11 22:11 | GENPN ---
[facility] Subjective Date DATE: 01/11/17 TIME: 14:50 Subjective/Severity of Illness Medications Current Medications Medications (Trade) Dose Ordered Sig/Kelley Start Time Stop Time Status Last Admin Dose Admin Amiodarone HCl (Pacerone) 200 mg DAILY 01/04/17 09:00 Future Hold Amlodipine Besylate (Norvasc) 5 mg DAILY 01/04/17 09:00 01/11/17 08:55 5 MG Aspirin (ASA) 325 mg HS 01/03/17 21:00 Future Hold 01/03/17 19:48 325 MG Cyclosporine (Restasis Eye Drops) 1 drop BID 01/03/17 21:00 Future hold 01/11/17 08:56 1 DROP Famotidine (Pepcid) 40 mg DAILY 01/04/17 09:00 Future Hold Levothyroxine Sodium (Synthroid) 75 mcg ACB 01/04/17 06:30 Future hold 01/11/17 11:10 75 MCG Lisinopril (Prinivil) 20 mg DAILY 01/04/17 09:00 Future Hold Senna/Docusate Sodium (Senna Plus) 1 tab BID 01/03/17 21:00 Future Hold 01/05/17 08:54 1 TAB [id number] Ethyl Esters (Lovaza) 1 g BID 01/03/17 21:00 Future Hold 01/03/17 19:48 1 G Miscellaneous Medication (May use PRN orders) 1 PRN PRN 01/03/17 12:00 Lorazepam (Ativan) 0.5 mg Q6H PRN 01/03/17 12:00 Future Hold Lorazepam (Ativan) 0.5 mg Q6H PRN 01/03/17 12:00 Future Hold Lorazepam (Ativan Intensol) 0.5 mg Q6H PRN 01/03/17 14:15 Future Hold 01/04/17 02:33 0.5 MG Acetaminophen 1 to 2 tabs for pa... Q5H PRN 01/03/17 18:15 Future hold 01/07/17 21:49 650 MG Sodium Chloride 1,000 ml @ 100 mls/hr Q10H 01/04/17 13:45 01/05/17 08:46 DC 01/04/17 15:30 100 MLS/HR Sodium Chloride (0.45% NS) 1,000 ml @ 75 mls/hr [id number] 01/05/17 09:30 01/05/17 18:09 DC 01/05/17 09:33 75 MLS/HR Olanzapine (Zyprexa Zydis) 2.5 mg HS 01/05/17 21:00 01/05/17 21:00 DC Olanzapine (Zyprexa Zydis) 1.25 mg Q6HR PRN 01/05/17 13:00 01/05/17 16:13 DC Haloperidol Lactate 0.25 mg 0.25 mg HS 01/05/17 21:00 01/07/17 18:42 DC 01/06/17 23:28 0.25 MG Dextrose/Sodium Chloride (D5-1/2 NS) 1,000 ml @ 75 mls/hr [id number] 01/05/17 18:15 01/07/17 11:21 DC 01/06/17 21:23 75 MLS/HR Haloperidol (Haldol) 0.5 mg HS 01/07/17 21:00 01/10/17 20:02 0.5 MG Subjective Patient seen and chart reviewed. Case discussed with treatment team. Patient reports that she is doing well and feels that she is ready for discharge. She denies any VH in days. She reports that her mood is good. She feels well physically. Patient denies any SI, HI or AVH. No behavioral issues on the unit. Patient slept 6+ hours overnight. Appetite is good (100% of all 3 meals though patient reports this is an effort).. Patient denies any adverse side effects due to medications or other concerns. BP elevated. No new labs. Psychotropic PRNs required in the past 24 hours: none. Start Time: 15:10 Stop Time: 15:30 Care >50% of this visit spent in counseling/coordination care. [facility] Exam Vitals Vital Signs Date Time Temp Pulse Resp B/P Pulse Ox O2 Delivery O2 Flow Rate FiO2 01/11/17 08:54 97.8 54 18 168/70 100 Room Air Physical examination performed by the hospitalist. Height (Feet): 5 Height (Inches): 3.00 Mental Status Exam Muscle Strength/Tone: Normal Dressing: Casual Grooming: Good Attitude: Cooperative Motor Activity: Normal Eye Contact: Good Speech: Normal Volume: Normal Rhythm: Appropriate Rhythm Sensory: Alert Orientation: Oriented X4 Mood: Euthymic Affect: Congruent, Stable Rate of Thoughts: Appropriate Rate Thought Organization: Organized Associations: Intact Abstract Reasoning: Intact, able to abstract Computation: Approp. for Edu. Level Perception/Psychotic: Hx psychosis,not current Attention Span/Concentration: Normal Language: Naming Intact Fund of Knowledge: Bran aware current events Memory: Grossly Intact Suicidal Ideation: Denies Homicidal Ideation: Denies Insight: Fair Judgment: Fair Impulse Control: Good Laboratory Tests Test 01/11/17 06:17 01/11/17 10:14 Glucometer 72mg/dL Turbidity < 20 Sodium Level 144MEQ/L Potassium Level 4.6MEQ/L Chloride Level 107MEQ/L Carbon Dioxide Level 30MEQ/L Anion Gap 7MEQ/L Blood Urea Nitrogen 27.0MG/DL Creatinine 1.2MG/DL Glomerular Filtration Rate Calc 43 BUN/Creatinine Ratio 23RATIO Glucose Level 169MG/DL Calculated Osmolality 286MOSM/KG Calcium Level 9.5MG/DL Icterus Index < 2 Chemistry Specimen Hemolysis < 15 Assessment and Plan (1) Delirium due to multiple etiologies Assessment: Suspect Plan: At time of admission: Will order at EKG to check QT. Will hold Haldol and other antipsychotics at this time. Team will discuss case with oreman on Wednesday. Would hope to get pt off of Amiodarone if possible but if not possible then would recommend Latuda or Abilify as these seem to have the best evidence for not prolonging QT. 01/04/17: Discontinue Lorazepam. Cont to monitor patient in the unit 01/05/17: Hold Tylenol, Aspirin, Cyclosporine,Levothyroxine, Rawlins 3 fatty acid and Cristina. Start Haloperidol 0.25mg IV q hs. Fasting blood sugar daily 01/06/17: Cont current care and encourage oral intake when possible. 01/07/17: DC IV Haloperidol and change it Haloperidol oral 0.5mg q hs. The plan will be change Haloperidol to possibly Olanzapine in future. 01/08/17 Continue current care 01/09/17 Continue current care 01/10/17 Continue current care 01/11/17: Continue current care; plan to discharge back to [facility] tomorrow. (2) Major neurocognitive disorder Assessment: Suspect (3) Hypothyroid Cont. current psych. meds, Anticipate discharge soon (01/12/17) DANILO TATE MD Jan 11, 2017 14:50
--- NOTE | 2017-01-11 22:17 | PDOCECFAO ---
Admission Orders Admission Orders Admit to: Alf Allergies: Coded Allergies: Nitrofurantoin Macrocrystal (Verified Allergy, Unknown, 01/03/17) nitrofurantoin (Verified Allergy, Unknown, 01/03/17) Admitting Diagnosis Unspecified Schizophrenia Spectrum, Other Psychoti Admitting Physician Va Washburn MD Attending Physician Irma Tate MD Code Status Do Not Resuscitate Anticipated LOS: Greater than 30 days Rehab Potential: Good Rehab Prognosis: Good Diet: Mechanical Soft (Dysphagia diet: chopped meats, thin liquids) Wound/Incision Care: N/A May use Facility Protocol /SO: Yes May Have Flu Vaccine: Yes Evaluations/Treat: PT, Psychiatric, As Needed Alf Certification I certify that SNF services are required to be given on an Inpatient basis because of the patients need for senior care care on a continuing basis for the condition(s) for which he/she received inpatient hospital services prior to his/her transfer to the SNF. SNF inpatient care is necessary for the following reasons Other (Physical therapy) IRMA TATE MD Jan 11, 2017 22:17
[2017-01-11] MEDS ORDERED: HALO0.5T PO (22:19)
--- NOTE | 2017-01-11 23:34 | NUR ---
Status/Orders Assumed patient care at 1900 and assessment completed at 2019. Patient spends the evening in her room, sitting in the recliner and reading/journaling/looking out the window. She is ALOx3 and in a pleasant, cooperative, and conversational mood ([place] and . Makes appropriate eye contact, initiates conversation, and smiles readily (slightly slurred/mumbled speech although this is improving). Conversation is well-organized and thought processes are logical/intact. States that she is excited about discharge tomorrow and spends time packing some of her belongings. Denies any pain or discomfort at time of assessment; at HS, she c/o a stiff neck (reportedly from falling asleep while in her recliner earlier). Uses heating pad for a short time, which she later reports was effective. VS are stable with noted bradycardia (HR 51) and patient is asymptomatic. Requests prune juice at HS for "some" constipation. Ambulates with FFW; gait is slow/steady and stand-by assist is provided. No hallucinations are noted or reported - she describes many of her previous hallucinations and laughs, stating how "real they seemed at the time," but how "funny/crazy they seem now." Performs self-care independently; accepting/appreciative of staff assistance when needed. Readily compliant with/knowledgeable of medications. Orders from Dr. Nuñez are acknowledged: criteria for antipsychotic use, DC instructions, DC inpatient, and call scripts to pharmacy. Patient is resting quietly at the current time.
--- NOTE | 2017-01-12 01:02 | NUR ---
Chart Check 24 hour chart check completed
[2017-01-12 01:49] VITALS: BP 164/68; PULSE 57; RESP 18; TEMP 96.7; O2SAT 97
[2017-01-12] MEDS: LEVOTHYROXINE 75 MCG TABLET PO SCH (05:52)
--- NOTE | 2017-01-12 06:22 | NUR ---
Summary Patient slept 7.25 hours this shift. ALOx3 and with a logical thought process throughout the shift. Patient denies hallucinations and anxiety; no evidence of these are noted. Continent of urine and uses call cristina appropriately to notify staff of needs. Independent with cares and ambulates with walker; gait is steady and she demonstrates appropriate safety awareness. No c/o discomfort other than a stiff neck which she states was relieved with heating pad use last night. Fasting BGM is 67; patient is asymptomatic - takes a small snack. Resting quietly without complaints at the current time.
--- NOTE | 2017-01-12 07:38 | PNPDOC ---
Progress Note Date 01/12/[address] Canales to review medications and discharge instructions: 1. Keep medication list as simple as possible. 2. Increase Norvasc 5 mg to BID. Monitor for edema. 3. Continue to hold Lisinopril at this time. 4. Do not restart amiodarone. 5. Do not resume [place] 3's. If she continues to do well in outpatient setting, Dr. Canales will consider starting a statin. 6. Restart ASA. 7. Check BP and HR BID at [facility]. 8. If needed, Omar of Mtime [place] will be ordered and [place] [facility] It's already been approved. Call Dr. Canales with questions. 9. F/U with Dr. Canales on 01/20/17. MILI VIVAS APRN Jan 12, 2017 07:33
--- NOTE | 2017-01-12 07:40 | PDOCECFAO ---
Admission Orders Admission Orders Admit to: Jail Allergies: Coded Allergies: Nitrofurantoin Macrocrystal (Verified Allergy, Unknown, 01/03/17) nitrofurantoin (Verified Allergy, Unknown, 01/03/17) Admitting Diagnosis Unspecified Schizophrenia Spectrum, Other Psychoti Admitting Physician Va Washburn MD Code Status Do Not Resuscitate Anticipated LOS: Greater than 30 days Rehab Potential: Good Rehab Prognosis: Good Diet: Mechanical Soft (Dysphagia diet: chopped meats, thin liquids) Wound/Incision Care: N/A May use Facility Protocol /SO: Yes May Have Flu Vaccine: Yes Evaluations/Treat: PT, Psychiatric, As Needed Jail Certification I certify that SNF services are required to be given on an Inpatient basis because of the patients need for care home care on a continuing basis for the condition(s) for which he/she received inpatient hospital services prior to his/her transfer to the SNF. SNF inpatient care is necessary for the following reasons Other (Physical therapy) Cardiac or Respiratory Arrest Additional Orders: Check BP and HR BID at [facility]. If needed, Omar of WILEX monitor will be ordered and sent to [facility]. It's already been approved. Call Dr. Canales with questions. F/U with Dr. Canales on 01/20/17. MILI VIVAS APRN Jan 12, 2017 07:40
[2017-01-12] MEDS ORDERED: AMLO5TAB4 PO (07:43)
[2017-01-12] MEDS ORDERED: ACET-2321 PO (07:43)
[2017-01-12] MEDS ORDERED: ASPI325T PO (07:43)
[2017-01-12] MEDS: AMLODIPINE 5 MG TABLET PO SCH (08:52)
[2017-01-12] MEDS: CycloSPORINE 0.05% Eye Drops 0.4ml DROPERETTE BOTH EYES SCH (08:52)
[2017-01-12 09:02] VITALS: BP 138/61; PULSE 53; RESP 18; TEMP 96.2; O2SAT 96
--- NOTE | 2017-01-12 09:31 | NUR ---
CM PT WILL D/C TO FACILITY TODAY PER DR TATE. CM SPOKE WITH WANDA FROM [facility] REGARDING D/C FOR TODAY. THEY WILL CONFERENCE SERVICE COORDINATOR PT AT 10:45AM TODAY. CM LEFT MESSAGE FOR PT DAUGHTER LIZZIE WITH CONFERENCE SERVICE COORDINATOR TIME. CM ENCOURAGED LIZZIE TO CALL IF NEEDS ARISE.
--- NOTE | 2017-01-12 10:50 | NUR ---
Summary Pt was up at 7am this morning and getting ready for her day when this RN resumed care of the patient. Pt was cooperative with assessment, cares and medications. Pt was able to perform her ADL's with minimal assist and ate a good amount of her breakfast. Pt was a little anxious this morning but it was due to the fact she was anticipating her dismissal. Pt had no complaints of pain or discomfort and no PRN medications were given. Pt is currently in her room awaiting dismissal with chair alarm activated.
--- NOTE | 2017-01-12 11:19 | NUR ---
Dismissal Pt was dismissed from the [facility] unit by 1 [facility] staff and 1 [facility] staff @ 11:15 this morning by COLIN. She was transported to [facility] transportation and was in stable condition upon her departure. All inventory was sent with the patient and report was called to Marlene FIGUEROA.
--- NOTE | 2017-01-12 11:23 | NUR ---
Report called to "Marlene"; unit contact information given along with plans for follow-up care with PCP and MH professional as outlined in PHS. No pending labs on discharge
--- NOTE | 2017-02-13 17:34 | DSPDOC ---
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 Discharge Diagnosis Delirium secondary to multiple etiologies (resolved), neurocognitive disorder suspected Laboratory Laboratory Tests Test 01/11/17 06:17 01/11/17 10:14 Glucometer 72mg/dL (65-110) Turbidity < 20 (0-20) Sodium Level 144MEQ/L (134-144) Potassium Level 4.6MEQ/L (3.6-5) Chloride Level 107MEQ/L (98-107) Carbon Dioxide Level 30MEQ/L (22-30) Anion Gap 7MEQ/L (5-15) Blood Urea Nitrogen 27.0MG/DL (7-17) Creatinine 1.2MG/DL (0.7-1.2) Glomerular Filtration Rate Calc 43 BUN/Creatinine Ratio 23RATIO (6-26) Glucose Level 169MG/DL (65-110) Calculated Osmolality 286MOSM/KG (261-280) Calcium Level 9.5MG/DL (8.4-10.2) Icterus Index < 2 (0-7) Chemistry Specimen Hemolysis < 15 (0-25) History of Present Illness Per admitting psychiatrist Dr. Polanco: Chief Complaint: "Im tired History of Present Illness HPI: 86 y/o CF with a hx of dementia who [facility] from 12/05/16 until 12/14/16. At that time pt was diagnosed with Delirium and probable dementia and was placed on Haldol. Pt was recently put on Amiodarone by her production repairer and her Haldol was stopped due to fear of drug interactions. Over the last few days the pt has become increasingly paranoid and delusional and has been having visual hallucinations. It seems in the past the PRN Haldol had kept these symptoms fairly well controlled. Pt was given Zyprexa in the ED at around 0400. On face to face the pt is resting in bed. She is hard to awake and is not able to participate in the interview. PT is alert and oriented to self. She states she knows she is in the hospital but is not able to answer any other orientation questions. She denies any pain. PSYCH ROS: Unable to obtain at this time. According to report the pt has been increasingly paranoid with VH over the last couple of days since stopping PRN Haldol. Per hospitalist managing medical comorbidities: Ethel is well known to the hospitalist services as she was recently on the [facility] from 12/05/16 until 12/14/16. She had been receiving Haldol while in [facility]. This was discontinued at time of discharge. She resides at [facility] under the care of Dr Hernandez. Since discharge she has also been following by the [facility] transactional care program . In reviewing those noted it appears that on 12/17/16 Ethel started having increased hallucinations and was placed back on Haldol 0.5 BID. Nursing records indicate that it was discontinued on 12/24/16. Patient is on Amiodarone 200 mg daily and this is reported to be the reasoning for discontinuing Haldol due to medication interaction. Over the past week staff reports worsening behavior and physical aggression towards others. She has been paranoid and increased confusion and agitation. Given the concern for further psychiatric, she was brought to [facility] ER early this morning for further evaluation. She was medically cleared and sent to [facility] unit for further inpatient evaluation and treatment. Did review admission laboratory studies WBC count is normal at 5.0, hemoglobin 12.5, hematocrit 37, platelet count 147. Sodium is 141, potassium 4.6, Anion gap 4, BUN 24 and creatinine 1.3. It appears that her baseline creatinine is 1.0. AST and ALT are also mildly elevated at 47 and 77. This is similar to previous admission. Ethel received Zyprexa in the emergency room and is currently sleeping during examination. She does not appear to be in any distress. Nursing staff reports that initially on admission she was talking however words and sentences are incomprehensible [facility] nursing staff report that Amiodarone has been tapered down to 200mg daily. She is currently under the cardiology care of Dr Canales. Hospital Course After the initial evaluation, the patient was placed on suicide precautions. Prior to the patients agreement of medication trials, the side effects, risk and benefits of all medications were discussed with the patient and/or DPOA. The patient tolerated medications well and without any side effects. During the hospitalization, the patient participated in unit activities, didnt have self- harming behavior or aggressive outbursts, and the patients vital signs remained within normal limits and stable. Throughout the hospitalization, the patient reported improvement of symptoms and resolution of hallucinations. The patients DPOA was contacted prior to dismissal to LTC facility. .He/she remained supportive and agreed to help coordinate the patients outpatient care. The LTC facility will remove/lock all weapons and medications, administer medications, and supervise the patient for safety. Psychotropic medication changes were as follows: At time of admission: Will order at EKG to check QT. Will hold Haldol and other antipsychotics at this time. Team will discuss case with production repairer on Wednesday. Would hope to get pt off of Amiodarone if possible but if not possible then would recommend Latuda or Abilify as these seem to have the best evidence for not prolonging QT. 01/04/17: Discontinue Lorazepam. Cont to monitor patient in the unit 01/05/17: Hold Tylenol, Aspirin, Cyclosporine,Levothyroxine, Coleman 3 fatty acid and Cristina. Start Haloperidol 0.25mg IV q hs. Fasting blood sugar daily 01/06/17: Cont current care and encourage oral intake when possible. 01/07/17: DC IV Haloperidol and change it Haloperidol oral 0.5mg q hs. The plan will be change Haloperidol to possibly Olanzapine in future. 01/08/17 Continue current care 01/09/17 Continue current care 01/10/17 Continue current care 01/11/17: Continue current care; plan to discharge back to [facility] tomorrow. Per hospitalist managing medical comorbidities: 01/03/17 Agree with admission to [facility] for acute behavioral disturbances and changes. In reviewing old records and residential charting Haldol has been given intermittently to patient over the last 3 weeks since her hospitalization. Haldol needs to be avoided since patient is on amiodarone. May need to speak with patient's production repairer, Dr. Canales if there is further questions regarding Amiodarone use and questionable tapering. In light of elevated renal function on admission will hold Lisinopril. Will need to monitor blood pressure carefully and may need to increase Norvasc to 10mg if BP is elevated. In regards to elevated LFTS will stop Pepcid as this can hepatitis. Will monitor serial CMP lab to follow. Encourage oral fluid. She may benefit from some IV fluids given acute renal function. She did respond well to IV fluids during per previous hospitalization. I have independently evaluated and examined this patient. I reviewed the chart, the patient's history, and the [employer]'s documented findings as above. We discussed and formulated the assessment and plan as above with additions as below: Mrs. Lund was resting comfortably in her room when seen. She had been sedated earlier in the day and did not respond to questions although mumbled occasionally and at one point clearly said "3". Current records and past records have been reviewed-visual hallucinations reported since Haldol discontinued with onset of restorationist auditory hallucinations prior to admission. Patient became physically aggressive with staff at the residential prompting ER evaluation and hospitalization. It is noted that the patient was bradycardic during her last admission but when seen by Dr. Canales after discharge she was found to have episodes of bigeminy which were thought to account for previously reported bradycardia and amiodarone was initiated at that time. On examination the patient responds to voice mumbling slightly and follows occasional commands gripping my fingers weakly but symmetrically. Gaze is conjugate and extraocular muscles intact, facial structures are symmetric. Respirations are nonlabored and breath sounds clear anteriorly. Cardiac rhythm is regular. The patient withdraws all 4 extremities to palpation and does so with relatively symmetric power. No tremors are present. EKG has been reviewed by myself demonstrating marked sinus bradycardia with heart rate of 34, subsequently heart rate has been improved by palpation with heart rates in the 50s. Laboratory data reviewed, liver enzymes slightly elevated but minimally changed from last admission. Hold amiodarone in the morning until can review with Dr. Canales. In addition to above diagnoses please add: #1 sinus bradycardia #2 recent bigeminy 01/04/17 Bradycardia persists - discussed with Dr. Canales - offered additional hx - pt has been becoming more forgetful and nervous over the last year; also notes increasing depression since the of her . Does not believe bradycardia is causing lethargy, eve. considering perfusing BP readings. Recommends to hold amiodarone for now (she started it b/c when she was in the office Ethel was in bigeminy in the 40s). Dr. Canales wanted to set her up with [employer] to measure how much time she was in bigeminy vs. bradycardia. Next step would be a pacemaker, but given her rapid decline this may not be in her best interest. She will come and see the patient on Wednesday. She would prefer updates on status and plans of care. Will discuss goals of care with her brother. Concerned about declining mental status - may need IVF. Unable to take anything oral this morning due to mental status. Straight cath to check UA and UDS Later in the morning I joined Rodger Nolasco, the [facility], in a phone conversation with Ethel Dexter's daughter and DPOA. I relayed to her the information from Dr. Canales, and her mother's current mental status. She stated that her mother would not want to have any procedures for her heart if her mind wasn't working properly. Her mother told her that her biggest fear was dementia , and now she is "living her nightmare". She did, however, report that there does seem to be some correlation with low HR and sleepiness - when she was here visiting Ethel at , she became more sleepy and started slurring her words when her heart rate decreased. She understands that at this time, the heart rate medication makes it too risky to continue the Haldol, which had been effective in controlling her hallucinations before. Guerita approved giving IVF at this time , if indicated. If her mental status improves, she may consent to a pacemaker, but would look towards Dr. Canales's and Dr. Hernandez's recommendations as well. She also would like to change her mother's code status to DNR. Ethel was able to complete a living will before she was discharged from [facility] the last time , so we do know that she would not want a G-tube. Guerita called me back around 1345 to inquire about antipsychotic treatment plan and concern about dehydration. I informed her that I haven't seen any orders, but the psychiatrist had mentioned a couple other medications that we might consider. Given her slightly low BP and poor oral intake will give 1L of IVF to see if this has an effect on her mental status and hemodynamics. 01/05/17 Electrolytes are worse despite 1L of IVF yesterday - Na up to 146, K up to 5.3 and renal functions have worsened (BUN 28 and Cr 1.5). Will give additional liter of 1/2 NS today. She is not taking in anything by mouth. She continues to have hallucinations, and in discussion with staff they are going to trial Haldol again today. HR bradycardic yesterday but elevated on morning VS (96). I suspect that if there is minimal response to the Haldol and IVF, then we will need to have another discussion with Guerita pt's daughter/DPOA about end-of- life care. Expect Dr. Canales to see the patient tomorrow am. 01/06/17March continues to show decreased alertness however will respond to verbal commands. Does follow commands and will squeeze both hands however keeps left arm contracted. Withdrawals to pain to Bilateral lower ext. Electrolytes have improved on D5W 1/2 NS IV fluids. NA decreased to 143, Potassium 4.7 and renal function improved down to 1.1. BP this morning is good at 139/71. Again daughter did confirm DNR status last evening Will continue to follow carefully. Will examine again later this afternoon. 01/11/17 Cognitive status has much improved. She's A&O x3 and communicates well. She is able to take care of personal ADLs independently. HR still bradycardic but stable in the 50s. BP has been elevated, though she is only on Norvasc at this time. Will check BMP now and if renal function is still stable we can consider resuming LISA-I. Defer further discussions regarding pacemaker to Dr. Canales, March, and her daughter. At this time, she is not demonstrating any hemodynamic instability other than asymptomatic mild bradycardia and occasional mild-moderate BP elevations. Psychiatric progress notes reviewed - no recent changes. Remains on Haldol 0.5 mg HS. Problems: Code Status Do Not Resuscitate Home Meds Active Scripts Acetaminophen (Tylenol) 325 Mg Tablet, 325-650 MG PO Q5H Y for DISCOMFORT for 30 Days, TAB Prov:MILI VIVAS [employer] 01/12/17 Amlodipine Besylate (Norvasc) 5 Mg Tablet, 5 MG PO BID for 30 Days, #60 TAB Prov:MILI VIVAS [employer] 01/12/17 Aspirin (Aspirin) 325 Mg Tablet, 325 MG PO HS for Anticoagulation for 30 Days Prov:MILI VIVAS [employer] 01/12/17 Haloperidol (Haloperidol) 0.5 Mg Tablet, 0.5 MG PO HS for Psychosis for 30 Days , #30 TAB Prov:DANILO TATE MD 01/11/17 Reported Medications Sennosides/Docusate Sodium (Senna Plus Tablet) 1 Tab Tablet, 1 TAB PO BID 12/17/16 Cyclosporine (Restasis) 32 Ea Droperette, 1 DROP OP BID for Eye irritation/ dryness 09/07/13 Levothyroxine Sodium (Levothyroxine Sodium) 75 Mcg Tablet, 75 MCG PO DAILY for Hypothyroidism 09/07/13 Face to Face Encounter I met with patient on the day of dismissal and discussed follow up appointments , medications, and safety plan. Discharge Disposition Discharge to LTC facility for supervision and medication management. DANILO TATE MD Jan 11, 2017 22:12
== END 2017-01-12 11:15 | DRG 880 ==
LOC: ED 04:07 → GEN 08:35
PROVIDERS: ADMIT Psychiatry & Neurology Psychiatry; ATTEND Psychiatry & Neurology Psychiatry
DX: F05 Delirium due to known physiological condition (principal); N17.9 Acute kidney failure, unspecified; I25.10 Atherosclerotic heart disease of native coronary artery without angina pectoris; I10 Essential (primary) hypertension; E03.9 Hypothyroidism, unspecified; G25.81 Restless legs syndrome; M79.7 Fibromyalgia; R00.1 Bradycardia, unspecified; R00.8 Other abnormalities of heart beat; Z95.1 Presence of aortocoronary bypass graft; Z79.82 Long term (current) use of aspirin
CPT/HCPCS: 36415; 80048; 80053; 80306; 80307; 81003; 82948; 83036; 83735; 84443; 85025; 93005

== ENCOUNTER 2017-02-17 21:49 | Emergency (ER) | payer MEDICARE, OTHER ==
[~2017-02-17] VITALS: Ht 160 cm; Wt 65.7 kg
[~2017-02-17 21:49] MED LIST changes: +ACET-2321 PO; -AMLO5TAB PO; +AMLO5TAB4 PO; -FAMO40TA7 PO; -FISH1CAP10 PO; -HYDR12.530 PO; -LISI-621 PO
[2017-02-17 21:55] VITALS: Ht 160 cm; Wt 65.7 kg
--- NOTE | 2017-02-17 22:07 | NUR ---
DR GARCIA IN WITH PT
[2017-02-17] MEDS ORDERED: NORMAL SALINE 1,000 ML IV ONE (22:30)
[2017-02-17 22:35] LABS: BASOPHILS % (AUTO) 0.3 % (0-2); EOSINOPHILS # (AUTO) 0.1 T/MM3 (0-0.5); EOSINOPHILS % (AUTO) 1.2 % (0-4); HCT - HEMATOCRIT 36.8 % (36-46); HGB - HEMOGLOBIN 12.4 GM/DL (12-16); IMMATURE GRANULOCYTE # (AUTO) 0.01 T/MM3 (0.00-0.03); IMMATURE GRANULOCYTE % (AUTO) 0.2 % (0.0-0.5); LYMPHOCYTES % (AUTO) 33.8 % (23-45); MEAN CORPUSCULAR HGB 31.6 UUG (26-34); MEAN CORPUSCULAR HGB CONC(MCHC 33.7 GM/DL (31-37); MEAN CORPUSCULAR VOLUME 93.6 UM3 (80-100); MEAN PLATELET VOLUME 10.1 UM3 (9.4-12.4); MONOCYTES # (AUTO) 0.4 T/MM3 (0-0.8); MONOCYTES % (AUTO) 6.9 % (0-9.0); NEUTROPHILS #(AUTO)-ABSOLUTE 3.4 T/MM3 (1.8-7.7); NEUTROPHILS % (AUTO) 57.6 % (33-66); RED BLOOD COUNT 3.93 M/MM3 (4.00-5.20); WBC - WHITE BLOOD COUNT 5.8 T/MM3 (4.5-11.0)
--- NOTE | 2017-02-17 22:35 | ERPDOC ---
Departure Disposition Decision Date: February 17, 2017 Disposition Decision Time: 23:53 Disposition: 01 DISCHARGED HOME, SELF-CARE Impression Impression Impression: Primary Impression: Dehydration Severity: Moderate Condition: Improved Seen By: Physician only Referrals: PUNEET MCINTYRE MD (Family) Patient Instructions: Dehydration (ED) Problems/Meds/Labs Reviewed?: Yes Medications reviewed and manag: Yes Additional Instructions: Increase fluid intake at home by 2 glasses of fluid daily Take your routine medications as prescribed See your doctor later this week or next week if not improved Follow up care ordered?: Yes Mental Status: Alert, Oriented HPI - General Medical General Chief Complaint: Hypertension Stated Complaint: HIGH BP, WEAKNESS Time Seen by Provider: 21:54 Source: patient, family Exam Limitations: no limitations HPI - General Medical Initial Comments Pt has been feeling generalized weakness for two days. Noted by nurse to have elevated systolic BP. Seen by FILTER TIP CATCHER for Dr. Yang today and sent to the clinic for lab, but no results. Feeling worse tonight and fearful of her BP getting so high she would stroke so she came to ER. Occurred At: home Onset: Gradual Severity: moderate Associated Symptoms: weakness, DENIES: chest pain, cough, diaphoresis, fever/ chills, headaches, loss of appetite, malaise, nausea/vomiting, rash, seizure, shortness of breath, syncope Hx of Similar Symptoms: Yes Allergies: Coded Allergies: Nitrofurantoin Macrocrystal (Verified Allergy, Unknown, 01/03/17) nitrofurantoin (Verified Allergy, Unknown, 01/03/17) Past History Patient Surgical History CABG 2001 CEA 2011 cholecystectomy DANY hemorrhoid surg vein stripping (?) Past Medical History Metabolic: hypertension, hypothyroidism Cardiac: CAD Psychological: psychosis, schizophrenia Surgical History Cardiac: cardiac bypass, carotid endarterectomy Vaccines Hx Influenza Vaccination: Yes Hx Pneumococcal Vaccination: Yes Social History Smoking Status: Never smoker Does patient use chewing tobac: No Second Hand Exposure: No Substance Use Type: does not use Alcohol Intake: none Marital Status: Housing: alf Advance Directives: Yes Full Code Review of Systems Constitutional Constitutional: fatigue, weakness, DENIES: anorexia, appetite decrease, appetite increase, chills, dizziness, fever, night sweats, syncope ENMT Ears: DENIES: pain Hearing: DENIES: hearing loss, tinnitus Balance: DENIES: vertigo Mouth/Throat: DENIES: change in swallowing, change in voice, hoarsness, painful swallowing, sore throat Cardiovascular Cardiac: DENIES: chest pain, dyspnea on exertion Rhythm/Rate: DENIES: irregular beat, palpitations, tachycardia Vascular: DENIES: pedal edema Pulmonary Respiratory: DENIES: cough, dyspnea, pleuritic chest pain GI Upper Abdomen: DENIES: dysphagia, heartburn/indigestion, nausea, pain, vomiting Lower Abdomen: DENIES: blood in stool, constipation, diarrhea, pain General: DENIES: burning, dysuria, frequency, pain, urgency Musculoskeletal General: DENIES: cramps, joint pain, joint swelling, pain, weakness Integumentary Skin: DENIES: rash, sores Neurological General: DENIES: headache, numbness, tingling, vertigo, weakness Psychiatric Psychiatric: DENIES: anxiety, depression, nervousness Physical Exam General General Nourishment: well nourished, well developed, appears stated age, no acute distress General Body Habitus: well groomed Vitals and Pain First Documented Vital Signs Date Time Temp Pulse Resp B/P Pulse Ox O2 Delivery O2 Flow Rate FiO2 02/17/17 21:55 95.2 71 16 182/77 95 Room Air Weight: Kilograms: 65.700 Height (feet): 5 Height (inches): 3.00 Triage Pain Scale: RN VS reviewed by Provider: Yes Comments Initial blood pressure moderately elevated, repeat blood pressure shows systolic elevated at 187-195, with diastolics normal at 77-81 Normal Exams: Head: Normocephalic w/o trauma Eyes: Pupils are PERRLA w/ EOMI, No scleral icterus, irritation, or foreign bodies noted ENMT: No facial trauma, nasal exudates, pharyngeal erythema, or exudates are noted Neck: Full range of motion, without adenopathy, JVD, bruits or thyromegaly Chest/Resp: Clear all barajas, with good airflow, and symmetry bilaterally CV: Regular rate and rhythm, without murmur or gallop, Pulses 2+ all extremities, capillary refill, <2 seconds all ext., no pedal edema noted Abdomen: Bowel sounds positive, soft, non-tender, non-distended, no hepatosplenomegaly, masses or bruits noted Lymphatic: No lymphadenopathy, or lymphedema noted Musculoskeletal: No tenderness, or deformity noted, good range of motion, all extremities Integumentary: No rashes, hives, or bruising noted, hair and nails, without abnormality Neurologic: Patient is alert, and oriented, cranial nerves, motor/sensory/ cerebellar, exams w/o gross deficits, to observation Psychiatric: Patient exhibits, appropriate attention, emotion and affect Progress Results/Orders Orders Procedure Category Date Status Time Iv Lock (Ed Only) EDM 02/17/17 Transmitted 21:58 Cbc W/Auto LAB 02/17/17 Complete Diff-Reflex Manual Cmp - Comprehensive LAB 02/17/17 In Process Metabolic EKG EKG 02/17/17 Taken Troponin I W LAB 02/17/17 In Process Hemolysis Index Ua, Dip Wreflex LAB 02/17/17 Complete Microsc & Medical Records Director 21:58 Normal Saline (Normal PHA 02/17/17 Complete Saline Iv) 22:30 Lab Results Laboratory Tests Test 02/17/17 22:30 02/17/17 22:38 White Blood Count 5.8T/MM3 Red Blood Count 3.93M/MM3 Hemoglobin 12.4GM/DL Hematocrit 36.8% Mean Corpuscular Volume 93.6UM3 Mean Corpuscular Hemoglobin 31.6UUG Mean Corpuscular Hemoglobin Concent 33.7GM/DL RDW Standard Deviation 47.2FL Platelet Count 127T/MM3 Mean Platelet Volume 10.1UM3 Immature Granulocyte % (Auto) 0.2% Neutrophils (%) (Auto) 57.6% Lymphocytes (%) (Auto) 33.8% Monocytes (%) (Auto) 6.9% Eosinophils (%) (Auto) 1.2% Basophils (%) (Auto) 0.3% Absolute Immature Granulocyte (auto 0.01T/MM3 Absolute Neutrophils (auto) 3.4T/MM3 Absolute Lymphocytes (auto) 2.0T/MM3 Absolute Monocytes (auto) 0.4T/MM3 Absolute Eosinophils (auto) 0.1T/MM3 Absolute Basophils (auto) 0.0T/MM3 Turbidity 22 Sodium Level 143MEQ/L Potassium Level 4.5MEQ/L Chloride Level 98MEQ/L Carbon Dioxide Level 32MEQ/L Anion Gap 13MEQ/L Blood Urea Nitrogen 38.0MG/DL Creatinine 1.6MG/DL Glomerular Filtration Rate Calc 31 BUN/Creatinine Ratio 24RATIO Glucose Level 101MG/DL Calculated Osmolality 284MOSM/KG Calcium Level 10.4MG/DL Total Bilirubin 0.40MG/DL Icterus Index < 2 Aspartate Amino Transf (AST/SGOT) 57U/L Alanine Aminotransferase (ALT/SGPT) 63U/L Alkaline Phosphatase 164U/L Troponin I Pending Total Protein 6.6G/DL Albumin 4.0G/DL Globulin 2.6G/DL Albumin/Globulin Ratio 1.5RATIO Chemistry Specimen Hemolysis < 15 Urine Collection Type Cleancatch-midstream Urine Color Yellow Urine Turbidity Sl cloudy Urine pH 7.0 Urine Specific Inez 1.010 Urine Protein Negative Urine Glucose (UA) Negative Urine Ketones Negative Urine Blood Negative Urine Nitrite Negative Urine Bilirubin Negative Urine Urobilinogen 0.2EU/DL Urine Leukocyte Esterase Negative Urinalysis Comment Microscopic not ind. Medications Current ED Medications Sodium Chloride (Normal Saline IV) 1,000 ml @ 0 mls/hr Q0M ONCE IV Last administered on 02/17/17t 22:45; Start 02/17/17 at 22:30; Stop 02/17/17 at 22:31; Status DC Progress Progress EKG shows atrial pacemaker without evidence of ischemia, alternate ectopy, or infarction CBC - n CMP - her dehydration with elevated creatinine, other abnormalities are consistent and chronic UA - n Troponin - n Patient given 1 L normal saline IV fluid bolus throughout the course her ER stay ANGELA GARCIA MD February 17, 2017 22:35
[2017-02-17 23:39] LABS: BLOOD, URINE NEGATIVE (NEGATIVE); COLOR,URINE YELLOW (YELLOW); LEUKOCYTE ESTERASE ,URINE NEGATIVE (NEGATIVE); NITRITE,URINE NEGATIVE (NEGATIVE); UROBILINOGEN,URINE 0.2 EU/DL (NORMAL)
[2017-02-17 23:46] LABS: ALBUMIN/GLOBULIN RATIO 1.5 RATIO (1.1-2.2); ALKALINE PHOSPHATASE 164 U/L (38-126); ALT (SGPT) 63 U/L (9-52); ANION GAP 13 MEQ/L (5-15); AST (SGOT) 57 U/L (14-36); BUN/CREATININE RATIO 24 RATIO (6-26); CALCIUM 10.4 MG/DL (8.4-10.2); CHLORIDE 98 MEQ/L (98-107); CO2 - CARBON DIOXIDE 32 MEQ/L (22-30); CREATININE 1.6 MG/DL (0.7-1.2); GLOMERULAR FILTRATION RATE 31; GLUCOSE 101 MG/DL (65-110); POTASSIUM 4.5 MEQ/L (3.6-5); SODIUM 143 MEQ/L (134-144); TOTAL PROTEIN 6.6 G/DL (6.3-8.2)
[2017-02-18 00:06] VITALS: BP 169/77; PULSE 63; RESP 16; TEMP 95.2; O2SAT 95
== END 2017-02-18 00:06 | disposition home or self-care (01) ==
LOC: ED 21:49
DX: I10 Essential (primary) hypertension (principal); E86.0 Dehydration
CPT/HCPCS: 80053; 81003; 84484; 85025; 93005; 96360; 99284; J7030

== ENCOUNTER 2018-01-16 22:47 | Inpatient (IN) ==
[2018-01-16] MEDS ORDERED: SALINE FLUSH 10ml SYRINGE IVF PRN (23:04)
[2018-01-16] MEDS ORDERED: NS 1,000 ML IV ONE (23:04)
--- NOTE | 2018-01-16 23:04 | Emergency Department Report ---
Psych HPI - General Chief Complaint: Psychiatric Symptoms Stated Complaint: hallucinating Time Seen by Provider: 01/16/18 22:51 Source: patient Mode of arrival: ambulatory Limitations: no limitations - History of Present Illness HPI Narrative: Patient is brought in by her brother who has been receiving reports from other members of family as well as the [facility] staff, the patient has been having progressive confusion over the past week. Tonight she said a dinner plate setting for 8 people, expecting "the people from upstairs at any moment." Patient lives in a single floor residents, has no upstairs neighbors, in fact there is no upstairs at all. Patient also has apparently been seeing people in her home, who have not been there this week. 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 - Related Data Home Medications Medication Instructions Recorded Confirmed Clobetasol 0.05% Cream [TEMOVATE 1 applicatio TOP BID 10/05/17 12/27/17 Cream] Denosumab [Prolia] 60 mg SQ Q6M 10/05/17 12/27/17 Docusate Sodium 100 mg PO DAILY 10/05/17 12/27/17 Levothyroxine Sodium 75 mcg PO DAILY 10/05/17 12/27/17 [place]-3/Dha/Epa/Fish Oil [Fish Oil 1,000 mg PO DAILY 10/05/17 12/27/17 1,000 mg Softgel] Propylene Glycol [Systane Balance] 1 drop EACH EYE BID 10/05/17 12/27/17 cycloSPORINE [Restasis Multidose] 1 drops EACH EYE BID 10/05/17 12/27/17 Aricept (donepezil) 10 mg tablet 10 mg PO DAILY tab 12/27/17 12/27/17 Mapap Regular Strength 325 mg 650 mg PO Q4H PRN 12/27/17 12/27/17 tablet ferrous sulfate 325 mg (65 mg 325 mg PO DAILY tab 12/27/17 12/27/17 iron) tablet melatonin 5 mg tablet 5 mg PO HS 12/27/17 12/27/17 Previous Rx's Medication Instructions Recorded Seroquel (quetiapine) 25 mg tablet 25 mg PO .q pm #30 tab 12/27/17 Allergies Allergy/AdvReac Type Severity Reaction Status Date / Time nitrofurantoin AdvReac Mild Hemolytic Verified 12/27/17 10:07 Anemia Review of Systems All systems: reviewed and negative except as stated PFSH Patient Stated Medical History Other HEENT Yes: GLASSES Cardiac Arrhythmia Yes: A FIB Hypertension Yes Diabetes Mellitus Type 1 No Diabetes Mellitus Type 2 No Gastroesophageal Reflux Yes Disease Other Yes: CHRONIC KIDNEY DISEASE Anemia Yes Osteoarthritis Yes: OSTEOPEROSIS Schizophrenia Yes Clinic Medical History (Last Reviewed 06/29/17 @ 10:02 by Kylee Barajas) Anemia (Acute Medical) Atrial fib/flutter, transient (Acute Medical) Chronic kidney disease (Acute Medical) GERD (gastroesophageal reflux disease) (Acute Medical) HTN (hypertension) (Acute Medical) Hypothyroid (Acute Medical) Osteoporosis (Acute Medical) hypertension, hypothyroidism CAD psychosis, schizophrenia Surgical History: 1. Tonsillectomy: 1931. 2. Hysterectomy: 1981. 3. Veins stripped: 1982. 4. Hemorrhoidectomy: 1982. 5. Heart bypass: 2000. 6. Carotid artery: 2011. 7. Cholecystectomy: 2015. 8. Pacemaker: 2017 Family History: Family History (Last Reviewed 12/27/17 @ 10:05 by Lolis Washington [facility]) Father Diabetes Arthritis Brother Stroke Glaucoma Disorder of bone Diabetes Cataract Arthritis CHF (congestive heart failure) Maternal Grandfather Myocardial infarction, acute, care Paternal Grandmother Cancer of breast - Social History Smoking status: Never smoker Substance use type: does not use Alcohol intake frequency: does not drink Current occupational status: retired Physical Exam - Limitations Limitations: altered mental status - General General appearance: alert, in no apparent distress - Normal Exams: Head:: Normocephalic without trauma Eyes:: Pupils are PERRLA w/ EOMI, No scleral icterus, irritation, or foreign bodies noted ENMT:: No facial trauma, nasal exudates, pharyngeal erythema, or exudates are noted Neck:: Full range of motion, without adenopathy, JVD, bruits or thyromegaly Chest/Respirations:: Clear all barajas, with good airflow, and symmetry bilaterally Cardiovascular:: Regular rate and rhythm, without murmur or gallop, Pulses 2+ all extremities, capillary refill, <2 seconds all extremities Abdomen:: Bowel sounds positive, soft, non-tender, non-distended, no hepatosplenomegaly, masses or bruits noted Integumentary:: No rashes, hives, or bruising noted, hair and nails, without abnormality Neurological:: Patient is alert, and oriented, cranial nerves, motor/sensory/ cerebellar, exams w/o gross deficits, to observation - Psychiatric Psychiatric exam: Present: normal affect, other (vision appears moderately confused, and has delusions both about family members that are not accurate, as well as delusions about the home that she is living in currently.). Absent: normal mood, depressed, agitated, anxious, flat affect, manic Course Vital Signs Temperature 97.6 F 01/16/18 22:47 Pulse Rate 67 01/16/18 22:47 Respiratory Rate 12 01/16/18 22:47 Blood Pressure 202/84 H 01/16/18 22:47 Pulse Oximetry 96 01/16/18 22:47 Temperature 97.6 F 01/16/18 22:47 Pulse Rate 76 01/17/18 00:30 Respiratory Rate 12 01/16/18 22:47 Blood Pressure 127/62 01/17/18 00:30 Pulse Oximetry 97 01/17/18 00:30 Psych - MDM Narrative Medical decision making narrative: CBC is normal CMP shows mild electrolyte abnormalities, BUN and creatinine are elevated above the patient's baseline, and she has slight elevations in her liver enzymes which is chronic. UA is normal. Patient is given 1 L normal saline, this does improve her mental status, but the patient is still moderately confused and having delusions at this time. Case is discussed with Dr. Aston Wiseman, who will admit the patient to the hospital, inpatient, for rehydration and psychiatric evaluation. - Lab Data Result diagrams: 01/16/18 23:15 01/16/18 23:15 Lab Results 01/16/18 01/16/18 01/17/18 Range/Units 23:15 23:15 00:18 WBC 6.7 (4.5-11.0) T/MM3 RBC 3.95 L (4.00-5.20) M/MM3 Hgb 12.4 (12-16) GM/DL Hct 37.8 (36-46) % MCV 95.7 (80-100) UM3 MCH 31.4 (26-34) UUG MCHC 32.8 (31-37) GM/DL RDW Std Deviation 56.3 H (36.9-50.2) FL Plt Count 122 L (130-400) T/MM3 MPV 10.9 (9.4-12.4) UM3 Immature Gran % (Auto) 0.3 (0.0-0.5) % Neut % (Auto) 56.7 (33-66) % Lymph % (Auto) 35.5 (23-45) % [place] % (Auto) 6.4 (0-9.0) % Eos % (Auto) 1.0 (0-4) % Baso % (Auto) 0.1 (0-2) % Neut # (Auto) 3.8 (1.8-7.7) T/MM3 Lymph # (Auto) 2.4 (1-4.8) T/MM3 [place] # (Auto) 0.4 (0-0.8) T/MM3 Eos # (Auto) 0.1 (0-0.5) T/MM3 Baso # (Auto) 0.0 (0-0.2) T/MM3 Abs Immat Gran (auto) 0.02 (0.00-0.03) T/MM3 Turbidity < 20 (0-20) Sodium 151 H (134-144) MEQ/L Potassium 4.5 (3.6-5) MEQ/L Chloride 110 H (98-107) MEQ/L Carbon Dioxide 27 (22-30) MEQ/L Anion Gap 14 (5-15) MEQ/L BUN 42.0 H (7-17) MG/DL Creatinine 1.4 H D (0.7-1.2) mg/dL GFR Calculation 36 BUN/Creatinine Ratio 30 H (6-26) RATIO Glucose 101 (65-110) MG/DL Calculated Osmolality 301 H (261-280) MOSM/KG Calcium 9.8 (8.4-10.2) MG/DL Total Bilirubin 0.60 (0.20-1.30) MG/DL Icterus Index < 2 (0-7) AST 48 H (14-36) U/L ALT 48 H (1-35) U/L Alkaline Phosphatase 164 H (38-126) U/L Total Protein 6.8 (6.3-8.2) g/dL Albumin 4.1 (3.5-5.0) g/dL Globulin 2.7 (2.4-3.6) G/DL Albumin/Globulin Ratio 1.5 (1.1-2.2) RATIO TSH 2.31 (0.47-4.68) miu/L Specimen Hemolysis < 15 (0-25) Ur Collection Type Urine, void-cc/notcc Urine Color Yellow (YELLOW) Urine Clarity Clear Urine pH 5.0 (5.0-8.0) Ur Specific [place] >=1.030 H (1.015-1.025) Urine Protein Negative (NEGATIVE) Urine Glucose (UA) Negative (NEGATIVE) Urine Ketones Trace A (NEGATIVE) Urine Occult Blood Negative (NEGATIVE) Urine Nitrate Negative (NEGATIVE) Urine Bilirubin Negative (NEGATIVE) Urine Urobilinogen 0.2 (NORMAL) EU/DL Ur Leukocyte Esterase Negative (NEGATIVE) Urinalysis Comment Microscopic not ind. Salicylates < 1.0 L (2-20) MG/DL Urine Opiates Screen ng/mL Ur Oxycodone Screen ng/mL Urine Methadone Screen ng/mL Ur Propoxyphene Screen ng/mL Acetaminophen < 10 L (10-30) UG/ML Ur Barbiturates Screen ng/mL U Tricyclic Antidepress ng/mL Ur Phencyclidine Scrn ng/mL Ur Amphetamines Screen ng/mL U Methamphetamines Scrn ng/mL U Benzodiazepines Scrn ng/mL Urine Cocaine Screen ng/mL U Cannabinoids Screen ng/mL Alcohol, Quantitative <10 (<10) mg/dL 01/17/18 Range/Units 00:18 WBC (4.5-11.0) T/MM3 RBC (4.00-5.20) M/MM3 Hgb (12-16) GM/DL Hct (36-46) % MCV (80-100) UM3 MCH (26-34) UUG MCHC (31-37) GM/DL RDW Std Deviation (36.9-50.2) FL Plt Count (130-400) T/MM3 MPV (9.4-12.4) UM3 Immature Gran % (Auto) (0.0-0.5) % Neut % (Auto) (33-66) % Lymph % (Auto) (23-45) % [place] % (Auto) (0-9.0) % Eos % (Auto) (0-4) % Baso % (Auto) (0-2) % Neut # (Auto) (1.8-7.7) T/MM3 Lymph # (Auto) (1-4.8) T/MM3 [place] # (Auto) (0-0.8) T/MM3 Eos # (Auto) (0-0.5) T/MM3 Baso # (Auto) (0-0.2) T/MM3 Abs Immat Gran (auto) (0.00-0.03) T/MM3 Turbidity (0-20) Sodium (134-144) MEQ/L Potassium (3.6-5) MEQ/L Chloride (98-107) MEQ/L Carbon Dioxide (22-30) MEQ/L Anion Gap (5-15) MEQ/L BUN (7-17) MG/DL Creatinine (0.7-1.2) mg/dL GFR Calculation BUN/Creatinine Ratio (6-26) RATIO Glucose (65-110) MG/DL Calculated Osmolality (261-280) MOSM/KG Calcium (8.4-10.2) MG/DL Total Bilirubin (0.20-1.30) MG/DL Icterus Index (0-7) AST (14-36) U/L ALT (1-35) U/L Alkaline Phosphatase (38-126) U/L Total Protein (6.3-8.2) g/dL Albumin (3.5-5.0) g/dL Globulin (2.4-3.6) G/DL Albumin/Globulin Ratio (1.1-2.2) RATIO TSH (0.47-4.68) miu/L Specimen Hemolysis (0-25) Ur Collection Type Urine Color (YELLOW) Urine Clarity Urine pH (5.0-8.0) Ur Specific [place] (1.015-1.025) Urine Protein (NEGATIVE) Urine Glucose (UA) (NEGATIVE) Urine Ketones (NEGATIVE) Urine Occult Blood (NEGATIVE) Urine Nitrate (NEGATIVE) Urine Bilirubin (NEGATIVE) Urine Urobilinogen (NORMAL) EU/DL Ur Leukocyte Esterase (NEGATIVE) Urinalysis Comment Salicylates (2-20) MG/DL Urine Opiates Screen Negative ng/mL Ur Oxycodone Screen Negative ng/mL Urine Methadone Screen Negative ng/mL Ur Propoxyphene Screen Negative ng/mL Acetaminophen (10-30) UG/ML Ur Barbiturates Screen Negative ng/mL U Tricyclic Antidepress Negative ng/mL Ur Phencyclidine Scrn Negative ng/mL Ur Amphetamines Screen Negative ng/mL U Methamphetamines Scrn Negative ng/mL U Benzodiazepines Scrn Negative ng/mL Urine Cocaine Screen Negative ng/mL U Cannabinoids Screen Negative ng/mL Alcohol, Quantitative (<10) mg/dL Disposition Clinical Impression: Dehydration, Confusion, Hallucinations Disposition: 02 To [facility] Acute Care Condition: Improved Prescriptions: No Action Propylene Glycol [Systane Balance] 1 drop EACH EYE BID [place]-3/Dha/Epa/Fish Oil [Fish Oil 1,000 mg Softgel] 1,000 mg PO DAILY Docusate Sodium 100 mg PO DAILY Clobetasol 0.05% Cream [TEMOVATE Cream] 1 applicatio TOP BID Denosumab [Prolia] 60 mg SQ Q6M cycloSPORINE [Restasis Multidose] 1 drops EACH EYE BID Levothyroxine Sodium 75 mcg PO DAILY ferrous sulfate 325 mg (65 mg iron) tablet 325 mg PO DAILY tab melatonin 5 mg tablet 5 mg PO HS Mapap Regular Strength 325 mg tablet 650 mg PO Q4H PRN Seroquel (quetiapine) 25 mg tablet 25 mg PO .q pm #30 tab Aricept (donepezil) 10 mg tablet 10 mg PO DAILY tab Referrals: Judith Hernandez MD [Family Provider] - - Seen By: physician
[2018-01-17] MEDS ORDERED: HALOPERIDOL 5 MG/ML INJECTION IVP PRN (01:17)
[2018-01-17] MEDS ORDERED: ONDANSETRON 4 MG/2 ML INJECTION IVP PRN (01:17)
[2018-01-17 01:28] VITALS: BMI 25.4
[2018-01-17] MEDS: 1/2 NS 1,000 ML IV SCH ×3 (01:40→21:40)
[2018-01-17] MEDS ORDERED: ACETAMINOPHEN 650 MG/20.3 ML SOLUTION PO PRN (02:00)
[2018-01-17] MEDS ORDERED: FALL RISK - PHARMACY CONSULT XX ONE (02:01)
--- NOTE | 2018-01-17 02:04 | History & Physical Report ---
History of Present Illness Date: 01/17/18 Chief complaint: seeing things HPI: Please note that the patient was seen via telemedicine with nursing assistance on 01/17/2018 Ms. Lund is an 87yo woman with h/o dementia, undifferentiated schizophenia, hypothyroidism, essential HTN, and poor hearing now with 01/16/2018 family found patient in her assisted living facility having set a table for 8 thinking she was hosting a dinner. She notes seeing images of people and bugs on the wall, and wires. No other pain, sob, nausea recognized. Unsure of change in medication or PO intake with her only a fair historian. She did know the month. Review of Systems All systems PM: 10-point ROS was reviewed, no additional remarkable complaints except Past Medical History Medical History: Medical History (Last Reviewed 06/29/17 @ 10:02 by Kylee Barajas) Anemia Atrial fib/flutter, transient Chronic kidney disease GERD (gastroesophageal reflux disease) HTN (hypertension) Hypothyroid Osteoporosis Surgical History: 1. Tonsillectomy: 1931. 2. Hysterectomy: 1981. 3. Veins stripped: 1982. 4. Hemorrhoidectomy: 1982. 5. Heart bypass: 2000. 6. Carotid artery: 2011. 7. Cholecystectomy: 2015. 8. Pacemaker: 2017 Family History: Family History (Last Reviewed 12/27/17 @ 10:05 by Lolis Washington [facility]) Father Diabetes Arthritis Brother Stroke Glaucoma Disorder of bone Diabetes Cataract Arthritis CHF (congestive heart failure) Maternal Grandfather Myocardial infarction, acute, care Paternal Grandmother Cancer of breast Family History Updates: no other new FHx, no early CAD Family History: Other - Social History Smoking status: Never smoker Substance use type: does not use Housing: assisted living facility Medications Home Medications Medication Instructions Recorded Confirmed Type Clobetasol 0.05% Cream [TEMOVATE 1 applicatio TOP BID 10/05/17 12/27/17 History Cream] Denosumab [Prolia] 60 mg SQ Q6M 10/05/17 12/27/17 History Docusate Sodium 100 mg PO DAILY 10/05/17 12/27/17 History Levothyroxine Sodium 75 mcg PO DAILY 10/05/17 12/27/17 History [place]-3/Dha/Epa/Fish Oil [Fish Oil 1,000 mg PO DAILY 10/05/17 12/27/17 History 1,000 mg Softgel] Propylene Glycol [Systane Balance] 1 drop EACH EYE BID 10/05/17 12/27/17 History cycloSPORINE [Restasis Multidose] 1 drops EACH EYE BID 10/05/17 12/27/17 History Aricept (donepezil) 10 mg tablet 10 mg PO DAILY tab 12/27/17 12/27/17 History Mapap Regular Strength 325 mg 650 mg PO Q4H PRN 12/27/17 12/27/17 History tablet Seroquel (quetiapine) 25 mg tablet 25 mg PO .q pm #30 tab 12/27/17 12/27/17 Rx ferrous sulfate 325 mg (65 mg 325 mg PO DAILY tab 12/27/17 12/27/17 History iron) tablet melatonin 5 mg tablet 5 mg PO HS 12/27/17 01/17/18 History Allergies Allergy/AdvReac Type Severity Reaction Status Date / Time nitrofurantoin AdvReac Mild Hemolytic Verified 12/27/17 10:07 Anemia Exam Vital Signs: Temperature 96.2 F L 01/17/18 01:28 Pulse Rate 79 01/17/18 01:33 Respiratory Rate 16 01/17/18 01:33 Blood Pressure 200/92 H 01/17/18 01:33 Pulse Oximetry 97 01/17/18 01:33 Telemetry Rhythm: Sinus Rhythm Height/Weight/BMI: Height 1.6 m Weight 65 kg Body Mass Index 25.4 - Constitutional Present: no acute distress - Routine HEENT Exam Head: Present: normocephalic, atraumatic Eye: Present: EOMI - Routine Neck Exam Present: full ROM - Routine Respiratory Exam Present: CTA bilaterally - Routine Cardiovascular Exam Present: RRR, S1, S2, no murmur - Routine Abdominal Exam Present: soft, normoactive bowel sounds - Routine Extremities Exam Present: no edema - Routine Back/Spine/Pelvis Exam Back/Spine: Present: full ROM - Routine Skin Exam Present: intact - Routine Neurological Exam alert, oriented to self, date, location, but tangential Results - Labs CBC & Chem 7: 01/16/18 23:15 01/17/18 04:08 Assessment and Plan (1) Hypernatremia Current visit: Yes Status: Acute (2) Schizophrenia Current visit: Yes Status: Acute (3) Dementia Current visit: Yes Status: Acute (4) Dehydration Current visit: Yes Status: Acute Assessment and Plan: 1. Hypernatremia/dehydration as likely cause of hallucinations with 2--1/2NS and repeat labs. No evidence of infection. 2. Dementia with h/o schizophenia--confirm dosing of seroquel et al. 3. Hypothyroidism--same therapy with TSH check. 4. Paroxysmal afib 5. Essential HTN on no meds--prn amlodipine for now. 6. Elevated creatinine with no ATN, repeat labs after hydration LMWH for DVT prophylaxis DVT Prophylaxis: Lovenox Resuscitation Status: Full Code - Physician Narrative Physician: Karol Rivas MD Narrative: Date: 01/17/18 Time: 1150 Dr. Betts's note reviewed. Mrs. Lund interviewed and examined. Supplemental history obtained from the patient's daughter Guerita and past medical records. CC: hallucinations HPI: Ms. Lund is an 87yo woman with h/o early dementia and undifferentiated schizophenia who family found patient in her assisted living facility having set a table for 8 thinking she was hosting a dinner. She notes seeing images of people and bugs on the wall, and wires. She's had hallucinations intermittently over the past year at least and was hospitalized in [facility] in November 2016 with hallucinations resulting in 2 psychiatric admissions. Both the patient and her daughter Guerita report that when the patient is hospitalized she's taken off of all her medications and symptoms subside. The patient has discontinued multiple medications at various times over the past year due to concern that medications were triggering hallucinations only to experience hallucinations again at a later time. Additional records are being obtained from outpatient offices to better define timeline but recently the patient discontinued lisinopril and was started on metoprolol which she then discontinued due to hallucinations. She saw Dr. Wolfe on 12/27 describing hallucinations at that time and was started on low- dose Seroquel but is now tapering Seroquel off because she thinks hallucinations worsened and it also caused excessive drowsiness. No other pain, sob, nausea recognized. Previously patient has attributed hallucinations to amiodarone per report of Dr. Canales, hydrochlorothiazide per her daughter's history, and lisinopril. PH/SH/FH: agree with that recorded above by Dr. 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 The patient was previously diagnosed with undifferentiated schizophrenia during psychiatric admissions. She has no history of alcohol, tobacco, or illicit drug use. Family history is as previously recorded and patient denies any known family history of psychiatric illness. Her 3 children share DPOA and her daughter reports patient has a DO NOT RESUSCITATE order. ROS: 10 point review as noted by Dr. Betts with additional history of falls in the past and persisting gait dysfunction. The patient has difficulty reading fine print and is scheduled for cataract surgery later this week. She has chronic hearing loss and reports she has been told she has a peripheral neuropathy on her scalp which causes a feeling of things crawling in the left scalp without similar sensations elsewhere in her body. Remainder of review of systems was negative. EXAM: General-NAD, alert, cooperative but often uncertain of timing of events; 96.7, 182/70, 82, 96% room air HEENT-PERRL, EOMI without nystagmus, conjunctiva clear, sclera anicteric, conjugate gaze, facial structures symmetric, oropharynx clear, neck supple and without adenopathy Lungs-respirations nonlabored, good airflow, breath sounds clear Cardiac-regular rhythm, S1 and S2 with soft systolic murmur, occasional ectopic beats noted Abd-soft, nontender, without palpable mass, bowel sounds present Ext-trace edema bilateral lower extremities Skin-faint erythema without excoriations over the left knee, erythema blanches to palpation Musculoskeletal-degenerative changes in the small joints of the hands, kyphosis present Neuro-cranial nerves 3-12 grossly intact, motor tone normal, no cogwheeling or tremor present. Sensation intact to light touch 4 extremities Psych-oriented 3, can identify the president but cannot complete serial 7's; calm, pleasant DATA: Sodium 151-147, BUN 42-36, creatinine 1.4-1.1; AST 48, ALT 48, alkaline phosphatase 164. Urinalysis with specific gravity greater than 1.03 and trace ketones present. Urine drug screen negative and alcohol nondetectable. A/P: Hallucinations Hypernatremia Dehydration Mild cognitive impairment/dementia Hypertension Coronary artery disease Hypothyroidism Paroxysmal atrial fibrillation Cataracts Patient presents with recurrent hallucinations in conjunction with mild dehydration and hypernatremia. Continue hydration. Dr. Wolfe and Dr. Nuñez have been consulted and additional records are being obtained from Dr. Canales and Dr. Hernandez to better define time course of medication changes as confusing history is present in speaking with the patient and her daughter. Both the patient and her daughter are fairly insistent that hallucinations resolve whenever the patient is hospitalized and taken off of all medications although blood pressure control is clearly inadequate without treatment. Haldol has been used in the past at low doses and is unclear if hospital interventions lead to improvement as opposed to withdrawal of home medications. Eyedrops for upcoming cataract surgery will be continued although ability to safely proceed with surgery as scheduled is unclear at present. DO NOT RESUSCITATE order written after discussion with patient's daughter/DPOA. Hospital Course Summary Disclaimer: The visit summary below is not to be considered part of the above Progress Note. Hospital Course: 01/17/18 Patient presents with recurrent hallucinations in conjunction with mild dehydration and hypernatremia. Continue hydration. Dr. Wolfe and Dr. Nuñez have been consulted and additional records are being obtained from Dr. Canales and Dr. Hernandez to better define time course of medication changes as confusing history is present in speaking with the patient and her daughter. Both the patient and her daughter are fairly insistent that hallucinations resolve whenever the patient is hospitalized and taken off of all medications although blood pressure control is clearly inadequate without treatment. Haldol has been used in the past at low doses and is unclear if hospital interventions lead to improvement as opposed to withdrawal of home medications. Eyedrops for upcoming cataract surgery will be continued although ability to safely proceed with surgery as scheduled is unclear at present. DO NOT RESUSCITATE order written after discussion with patient's daughter/DPOA.
[2018-01-17] MEDS: LEVOTHYROXINE 75 MCG TABLET PO SCH (06:12)
[2018-01-17] MEDS: ENOXAPARIN 40 MG/0.4 ML INJECTION SQ SCH (11:30)
[2018-01-17] MEDS: POLYETHYL GLYCOL 3350 17gm PACKET PO SCH (11:30)
--- NOTE | 2018-01-17 17:28 | Consultation ---
DATE OF CONSULTATION 01/17/[address] Rivas CHIEF COMPLAINT Hallucinations, confusion. HISTORY OF PRESENT ILLNESS Patient is an 87-year-old female with history of dementia and differentiated schizophrenia, hypothyroidism, essential hypertension, hearing loss and recurring hallucinations. The patient was brought from her assisted living facility due to confusion regarding visual hallucinations and delusional thoughts. Her lab work showed evidence of dehydration and mildly elevated liver enzymes for no apparent reason. She had no recent brain imaging. Her last CT head was on October 05, 2017 and it was unremarkable at the time. Patient described having daily visual hallucinations, especially at night. She tends to see people, some of which she can recognize her some of which she does not recognize. This has not caused her any severe irritability or agitation. The patient has been taking Seroquel for those symptoms. This has helped her significantly in the past but it made her very drowsy and it was stopped by her family. The patient denies having any focal weakness or numbness. She has no history of stroke. On physical examination the patient was awake, alert, oriented x 2. Pupils were round, reactive, and equal. Extraocular muscles were intact. Visual field was full. Speech was slow and dysarthric. Motor examination in all extremities was 5-/5. Sensory examination was symmetrical for light touch. Deep tendon reflexes were 2-. Plantar reflexes were equivocal with withdrawal bilaterally. Coordination for jojxue-in-mjnv was slow. ASSESSMENT/PLAN 1. Dementia with behavioral problem and possible schizoaffective disorder. The patient was stable on a low dosage of Seroquel in the past. This can be resumed once again if possible. Other considerations include the usage of low- dosage risperidone. The patient also may benefit from a low dosage of Aricept like 5 mg p.o. q.h.s. for her dementia. This may also help with her hallucination and confusion. Other considerations include Exelon patches or Exelon tablet if having any GI problems. 2. The patient also needs to have a psychiatric evaluation for psychotic symptoms and behavioral changes. 3. Provide good fluid intake to treat dehydration which can cause worsening of her confusion. 4. Evaluate for any causes of her liver function abnormalities. [facility]
[2018-01-18] MEDS: LEVOTHYROXINE 75 MCG TABLET PO SCH (06:50)
[2018-01-18] MEDS: 1/2 NS 1,000 ML IV SCH ×2 (08:56→19:45)
[2018-01-18] MEDS: ENOXAPARIN 40 MG/0.4 ML INJECTION SQ SCH (10:08)
[2018-01-18] MEDS: POLYETHYL GLYCOL 3350 17gm PACKET PO SCH (10:09)
--- NOTE | 2018-01-18 15:12 | Neuropsychiatric Consult ---
[facility] Date: 01/18/18 Requesting Physician: Karol Rivas Reason for Consultation: VH Start Time: 14:00 Stop Time: 14:50 History of Present Illness: Patient is an 87-year-old , retired female who was admitted to [facility] for mild dehydration and hypernatremia. Psychiatry was consulted due to patient's report of VH, which she has had in the past. Patient was hospitalized on [facility] in December 2016 and was diagnosed with delirium, as well as suspected underlying neurocognitive disorder. She was discharged on low-dose Haldol (0.5mg at ). Patient has had appointments with Dr. Wolfe since that time and per family, there is some question as to whether patient had been diagnosed with LBD. On interview, patient is pleasant and mostly oriented (missed date by 1 day). She reports that her mood is mostly happy but describes frequent and vivid VH, last time this morning. She feels they have gotten better since being in the hospital. Patient denies symptoms consistent with anxiety disorder, bipolar disorder or schizophrenia though she has had recurrent VH. She says a lot of times she sees squirrels running around. At times, she gets worried about sounds at home but she denies other AVH. She reports some difficulty falling asleep and middle insomnia. She denies change in appetite, energy level, SI, or HI. Patient lives by herself and manages her own medications. She has 3 children who live out of state. In the past, she has apparently been quite sensitive to several medications and appears to slip into delirium quite easily. SLUMS was administered and patient scored a 26/30, missing 1 story question, naming 4/5 objects on delayed recall, and unable to repeat a series of 4 numbers backwards. Psychosis: Hallucinations/Illusions PFS Patient Stated Medical History Dementia Yes Other HEENT Yes: GLASSES Cardiac Arrhythmia Yes: A FIB Hypertension Yes Gastroesophageal Reflux Yes Disease Other Yes: CHRONIC KIDNEY DISEASE Anemia Yes Osteoarthritis Yes: OSTEOPEROSIS Schizophrenia Yes Clinic Medical History (Last Reviewed 06/29/17 @ 10:02 by Kylee Barajas) Anemia (Acute Medical) Atrial fib/flutter, transient (Acute Medical) Chronic kidney disease (Acute Medical) GERD (gastroesophageal reflux disease) (Acute Medical) HTN (hypertension) (Acute Medical) Hypothyroid (Acute Medical) Osteoporosis (Acute Medical) Surgical History: 1. Tonsillectomy: 1932. 2. Hysterectomy: 1981. 3. Veins stripped: 1982. 4. Hemorrhoidectomy: 1982. 5. Heart bypass: 2000. 6. Carotid artery: 2011. 7. Cholecystectomy: 2015. 8. Pacemaker: 2017 Family History: Family History (Last Reviewed 12/27/17 @ 10:05 by Lolis Washington [facility]) Father Diabetes Arthritis Brother Stroke Glaucoma Disorder of bone Diabetes Cataract Arthritis CHF (congestive heart failure) Maternal Grandfather Myocardial infarction, acute, care Paternal Grandmother Cancer of breast Family History Updates: no other new FHx, no early CAD. Denies any family hx of mental illness or dementia - Social History Smoking status: Never smoker Substance use type: does not use Alcohol intake frequency: does not drink Housing: assisted living facility Current occupational status: retired Current residence: Independent Living Social history: Patient graduated from high school. She was for 60+ years before her . She has 3 adult children who live out of state. Review of Systems All systems: reviewed and no additional remarkable complaints except as stated - EENMT Eyes: Present: other (cataracts that will need surgery) Balance: Present: other (unsteady) - Psychiatric Psychiatric: Present: as per [facility] Mental Status Exam Vitals: Last Vital Signs Temp 97.4 F 01/18/18 04:00 Pulse 64 01/18/18 11:34 Resp 16 01/18/18 11:34 BP 175/73 H 01/18/18 11:34 Pulse Ox 95 01/18/18 11:34 Height: 1.6 m Weight: 66.2 kg - Mental Status Exam Muscle Strength/Tone: Normal (no rigidity at all) Dressing: Casual Grooming: Good Attitude: Cooperative Motor Activity: Normal Eye Contact: Good Speech: Normal Volume: Normal Rhythm: Appropriate Rhythm Sensory: Alert Orientation: Oriented X4 (missed date by 1 day; otherwise oriented) Mood: Euthymic Affect: Relaxed Rate of Thoughts: Appropriate Rate Thought Organization: Organized Associations: Intact Abstract Reasoning: Intact, able to abstract Thought Content: Other (Appropriate concern about VH) Perception/Psychotic: Psychotic Current Hallucinations: Visual Language: Naming Intact Fund of Knowledge: Other (Scored 26/30 on SLUMS) Memory: Grossly Intact Suicidal Ideation: Denies Homicidal Ideation: Denies Insight: Fair Judgement: Fair Impulse Control: Good - Laboratory Result Diagrams: 01/16/18 23:15 01/18/18 04:42 Laboratory Results - last 24 hr 01/18/18 04:42 Turbidity < 20 Sodium 144 Potassium 4.4 Chloride 108 H Carbon Dioxide 29 Anion Gap 7 BUN 28.0 H Creatinine 1.0 GFR Calculation 52 BUN/Creatinine Ratio 28 H Glucose 81 Calculated Osmolality 282 H Calcium 8.9 Icterus Index < 2 TSH 3.55 Specimen Hemolysis < 15 Assessment and Plan (1) Delirium Problem details: Secondary to dehydration, hypernatremia - improving by time of discharge R/O underlying Major Neurocognitive Disorder R/O Lewy Body Dementia Current visit: Yes Status: Acute Discussed with patient various diagnoses in differential and that time/ progression may tell whether LBD is a possibility. Given her extreme sensitivity to medications, the fact that VH have been improving with medical treatment, and that they are not particularly distressing for her, I would prefer not to start an antipsychotic at this point. Discussed with patient and Dr. Rivas that I have some concerns with her managing her own medications. I think simplification of her med regimen and having another manage/prepare meds so we ensure what she is getting is optimal at this time, and then we can observe how VH progress. Patient plans continued f/u with neurology as outpatient as well. Thank you for this consult, please contact me if you have further questions.
[2018-01-18] MEDS: LOSARTAN 50 MG TABLET PO SCH (18:08)
--- NOTE | 2018-01-18 19:13 | Progress Note ---
- Date 01/18/18 Subjective: Mrs. Lund reported that she was seeing a woman walking at the end of her bed to the door yesterday but that she had no hallucinations overnight or in the early part of the day today. She denied any auditory hallucinations that she recognized as such. She continues to provide confusing history regarding what medication she's been taking and how she's been taking them conflicting history provided yesterday. She denied dyspnea, chest pain or palpitations, nausea or vomiting, or constipation. She reported sleeping well and that her appetite is good. Her son was at bedside and reports cataract surgery that had been scheduled for tomorrow has been postponed. Objective Vital signs: Temperature 97.4 F 01/18/18 04:00 Pulse Rate 62 01/18/18 16:46 Respiratory Rate 10 01/18/18 16:46 Blood Pressure 198/78 H 01/18/18 16:46 Pulse Oximetry 92 -RA 01/18/18 16:46 NAD, alert Conjugate gaze, conjunctiva clear, sclera anicteric, neck supple Respirations nonlabored, good airflow, breath sounds clear Regular rhythm, S1-S2 Abdomen is soft, nontender, bowel sounds are present Extremities without edema MAEW Oriented 3, calm, cooperative; significant confusion regarding medications and what she's taken recently Height/Weight/BMI: Height 1.6 m Weight 66.2 kg Body Mass Index 25.4 Results - Labs CBC & Chem 7: 01/16/18 23:15 01/18/18 04:42 Labs: TSH 3.55 (2.31 2 days ago) Assessment and Plan (1) Hallucinations Current visit: Yes Status: Acute (2) Hypernatremia Current visit: Yes Status: Acute (3) Dehydration Current visit: Yes Status: Acute Assessment and Plan: Assessment: Hallucinations Hypernatremia Dehydration Mild cognitive impairment/dementia Hypertension Coronary artery disease Hypothyroidism Paroxysmal atrial fibrillation Cataracts Plan: Hallucinations have improved while hospitalized; blood pressure has worsened with systolic pressures of approximately 200 on several occasions over the past 36 hours. Patient gives variable history as to whether she was taking metoprolol prior to admission-apparently discontinued medication around December [address] Canales's office but may have subsequently resumed it, possibly at half a tablet twice a day, and been taking it prior to admission. This is the same history she gives regarding Seroquel so it's unclear what was really being taken. Family is unable to clarify. Given progressive increase in blood pressure risks of not treating in a patient with known cardiac and cerebrovascular disease was discussed with the patient, her son, and her daughter. All in agreement that some treatment needs to be resumed; patient thinks lisinopril wasn't too bad and no one recalls particular side effects with amlodipine. Losartan initiated at 25 mg with first dose now. May be necessary to resume amlodipine-unclear why it was discontinued previously. Discontinue fluids when current bag is infused-sodium has normalized, creatinine improved. I have discussed my concern that patient is not safely managing medications and that she should not be responsible for medication administration in the future with her son and daughter. Findings reviewed with Dr. Nuñez who recommended minimizing medications due to patient's hypersensitivity to medications; at this time she did not feel treatment for hallucinations was necessary but ongoing observation appropriate. PT/OT evaluations noted; anticipate discharge to fdc to do need for ongoing medication adjustment/management. DVT Prophylaxis: SCD's Resuscitation Status: Do Not Resuscitate - Time spent with patient Time with patient PN: 50 minutes Coordination of Care: >50% of visit spent providing counseling/coordination of care - Physician Narrative Narrative: Date: 01/18/18 Time: 1909 Hospital Course Summary Disclaimer: The visit summary below is not to be considered part of the above Progress Note. Hospital Course: 01/17/18 Patient presents with recurrent hallucinations in conjunction with mild dehydration and hypernatremia. Continue hydration. Dr. Wolfe and Dr. Nuñez have been consulted and additional records are being obtained from Dr. Canales and Dr. Hernandez to better define time course of medication changes as confusing history is present in speaking with the patient and her daughter. Both the patient and her daughter are fairly insistent that hallucinations resolve whenever the patient is hospitalized and taken off of all medications although blood pressure control is clearly inadequate without treatment. Haldol has been used in the past at low doses and is unclear if hospital interventions lead to improvement as opposed to withdrawal of home medications. Eyedrops for upcoming cataract surgery will be continued although ability to safely proceed with surgery as scheduled is unclear at present. DO NOT RESUSCITATE order written after discussion with patient's daughter/DPOA. 01/18/18 Hallucinations have improved while hospitalized; blood pressure has worsened with systolic pressures of approximately 200 on several occasions over the past 36 hours. Patient gives variable history as to whether she was taking metoprolol prior to admission-apparently discontinued medication around December [address] Canales's office but may have subsequently resumed it, possibly at half a tablet twice a day, and been taking it prior to admission. This is the same history she gives regarding Seroquel so it's unclear what was really being taken. Family is unable to clarify. Given progressive increase in blood pressure risks of not treating in a patient with known cardiac and cerebrovascular disease was discussed with the patient, her son, and her daughter. All in agreement that some treatment needs to be resumed; patient thinks lisinopril wasn't too bad and no one recalls particular side effects with amlodipine. Losartan initiated at 25 mg with first dose now. May be necessary to resume amlodipine-unclear why it was discontinued previously. Discontinue fluids when current bag is infused-sodium has normalized, creatinine improved. I have discussed my concern that patient is not safely managing medications and that she should not be responsible for medication administration in the future with her son and daughter. Findings reviewed with Dr. Nuñez who recommended minimizing medications due to patient's hypersensitivity to medications; at this time she did not feel treatment for hallucinations was necessary but ongoing observation appropriate. PT/OT evaluations noted; anticipate discharge to fdc to do need for ongoing medication adjustment/management.
[2018-01-18] MEDS ORDERED: CYCLOSPORINE EACH EYE SCH (21:00)
[2018-01-18] MEDS ORDERED: PROPYLENE GLYCOL EACH EYE SCH (21:00)
[2018-01-18] MEDS: CycloSPORINE 0.05% EYE DROPS 4ml EACH EYE SCH (21:24)
[2018-01-18] MEDS: SYSTANE EYE DROPS 0.7ml EACH EYE SCH (21:24)
[2018-01-19] MEDS: 1/2 NS 1,000 ML IV SCH (05:30)
[2018-01-19] MEDS: LEVOTHYROXINE 75 MCG TABLET PO SCH (07:25)
[2018-01-19] MEDS: CycloSPORINE 0.05% EYE DROPS 4ml EACH EYE SCH ×2 (09:20→20:47)
[2018-01-19] MEDS: SYSTANE EYE DROPS 0.7ml EACH EYE SCH ×3 (09:20→20:46)
[2018-01-19] MEDS ORDERED: HALOPERIDOL 5 MG/ML INJECTION IVP PRN (09:21)
[2018-01-19] MEDS: OMEGA-3 ACID ESTERS 1 GM CAPSULE PO SCH (09:21)
[2018-01-19] MEDS: LOSARTAN 50 MG TABLET PO SCH ×2 (09:22→09:33)
[2018-01-19] MEDS: FERROUS SULFATE 324 MG TABLET PO SCH (09:22)
[2018-01-19] MEDS: ENOXAPARIN 40 MG/0.4 ML INJECTION SQ SCH (09:23)
[2018-01-19] MEDS: POLYETHYL GLYCOL 3350 17gm PACKET PO SCH (09:23)
[2018-01-19] MEDS: FLUTICASONE NASAL SPRAY 50mcg EA NOSTRIL SCH (13:18)
[2018-01-19] MEDS ORDERED: HYDRALAZINE 20 MG/ML INJECTION IVP ONE (16:16)
[2018-01-19] MEDS ORDERED: HYDRALAZINE 20 MG/ML INJECTION IVP PRN (17:43)
--- NOTE | 2018-01-19 17:48 | Progress Note ---
- Date 01/19/18 Subjective: Mrs. Lund reports that she's felt fine overnight without dyspnea, nausea, or lightheadedness. She reports having a minor cough and chronic rhinorrhea with postnasal drip. She has noted that her voice gets weaker and "fades" if she talks very long. She denies jaw claudication or muscle fatigue ambulating. She has had a minor headache with pressure above her eyes and a sensation of a tight band around her head comparing it to a blood pressure cuff. Finally she describes having a few nonthreatening hallucinations overnight again describing a woman at the end to the bed walking to the door and fading away (her son reminded her that this was the hallucination she described yesterday), a norm on the bedside table with an arm on it with a curtain hanging over the arm, and an image of a man flashed in the room briefly. Since the hallucinations or nonthreatening she hasn't mentioned them to her son or nursing previously. Objective Vital signs: Temperature 96.5 F L 01/19/18 07:44 Pulse Rate 72 01/19/18 17:11 Respiratory Rate 18 01/19/18 16:00 Blood Pressure 185/81 H 01/19/18 17:11 Pulse Oximetry 96 01/19/18 16:00 Weight stable from admission (fluid balance positive, accuracy voids uncertain) NAD, alert Conjunctiva clear, facial structure symmetric, no tenderness to palpation over the sinuses Respirations nonlabored, good airflow, breath sounds clear Regular rhythm, S1-S2 Abdomen soft, nontender, bowel sounds present Extremities without edema Moving all extremities well/symmetrically Vocal quality good although it does weaken the longer the patient speaks Height/Weight/BMI: Height 1.6 m Weight 64.7 kg Body Mass Index 25.4 Results - Labs CBC & Chem 7: 01/19/18 04:24 01/19/18 04:24 Labs: AST 44, ALT 42; bilirubin/alkaline phosphatase normal - Imaging and Cardiology CT scan - head Status: image reviewed by me (CT head obtained in September reviewed by myself- no evidence of sinusitis) Assessment and Plan (1) Hallucinations Current visit: Yes Status: Acute (2) Hypernatremia Current visit: Yes Status: Acute (3) Dehydration Current visit: Yes Status: Acute Assessment and Plan: Assessment: Hallucinations Hypernatremia Dehydration Mild cognitive impairment/dementia Hypertension Coronary artery disease Hypothyroidism Paroxysmal atrial fibrillation Cataracts Plan: Mrs. Lund continues to have minor hallucinations, unclear that they ever really resolved as some of the event she describes today are reported to have occurred yesterday. Blood pressure remains significantly elevated, losartan increased to 50 mg daily this morning and amlodipine resumed at 5 mg this evening. Hydralazine when necessary for sustained systolics above 180. If hallucinations escalating will readdress with Dr. Nuñez. KADIE obtained today-score 0 suggesting patient capable of living independently. Anticipate discharge to senior living to do need for ongoing medication adjustment/management-possibly tomorrow. - Physician Narrative Narrative: Date: 01/19/18 Time: 1743 Hospital Course Summary Disclaimer: The visit summary below is not to be considered part of the above Progress Note. Hospital Course: 01/17/18 Patient presents with recurrent hallucinations in conjunction with mild dehydration and hypernatremia. Continue hydration. Dr. Wolfe and Dr. Nuñez have been consulted and additional records are being obtained from Dr. Canales and Dr. Hernandez to better define time course of medication changes as confusing history is present in speaking with the patient and her daughter. Both the patient and her daughter are fairly insistent that hallucinations resolve whenever the patient is hospitalized and taken off of all medications although blood pressure control is clearly inadequate without treatment. Haldol has been used in the past at low doses and is unclear if hospital interventions lead to improvement as opposed to withdrawal of home medications. Eyedrops for upcoming cataract surgery will be continued although ability to safely proceed with surgery as scheduled is unclear at present. DO NOT RESUSCITATE order written after discussion with patient's daughter/DPOA. 01/18/18 Hallucinations have improved while hospitalized; blood pressure has worsened with systolic pressures of approximately 200 on several occasions over the past 36 hours. Patient gives variable history as to whether she was taking metoprolol prior to admission-apparently discontinued medication around December [address] Canales's office but may have subsequently resumed it, possibly at half a tablet twice a day, and been taking it prior to admission. This is the same history she gives regarding Seroquel so it's unclear what was really being taken. Family is unable to clarify. Given progressive increase in blood pressure risks of not treating in a patient with known cardiac and cerebrovascular disease was discussed with the patient, her son, and her daughter. All in agreement that some treatment needs to be resumed; patient thinks lisinopril wasn't too bad and no one recalls particular side effects with amlodipine. Losartan initiated at 25 mg with first dose now. May be necessary to resume amlodipine-unclear why it was discontinued previously. Discontinue fluids when current bag is infused-sodium has normalized, creatinine improved. I have discussed my concern that patient is not safely managing medications and that she should not be responsible for medication administration in the future with her son and daughter. Findings reviewed with Dr. Nuñez who recommended minimizing medications due to patient's hypersensitivity to medications; at this time she did not feel treatment for hallucinations was necessary but ongoing observation appropriate. PT/OT evaluations noted; anticipate discharge to senior living to do need for ongoing medication adjustment/management. 01/19/18 Mrs. Lund continues to have minor hallucinations, unclear that they ever really resolved as some of the event she describes today are reported to have occurred yesterday. Blood pressure remains significantly elevated, losartan increased to 50 mg daily this morning and amlodipine resumed at 5 mg this evening. Hydralazine when necessary for sustained systolics above 180. If hallucinations escalating will readdress with Dr. Nuñez. KADIE obtained today-score 0 suggesting patient capable of living independently. Anticipate discharge to senior living to do need for ongoing medication adjustment/management-possibly tomorrow.
[2018-01-19] MEDS: AMLODIPINE 5 MG TABLET PO SCH (18:05)
[2018-01-20] MEDS: LEVOTHYROXINE 75 MCG TABLET PO SCH (05:51)
[2018-01-20 07:56] VITALS: RESP 12; TEMP 96.1; O2SAT 95
[2018-01-20] MEDS: SYSTANE EYE DROPS 0.7ml EACH EYE SCH (08:58)
[2018-01-20] MEDS: ENOXAPARIN 40 MG/0.4 ML INJECTION SQ SCH (08:58)
[2018-01-20] MEDS: CycloSPORINE 0.05% EYE DROPS 4ml EACH EYE SCH (08:58)
[2018-01-20] MEDS: POLYETHYL GLYCOL 3350 17gm PACKET PO SCH (08:58)
[2018-01-20] MEDS: OMEGA-3 ACID ESTERS 1 GM CAPSULE PO SCH (08:59)
[2018-01-20] MEDS: LOSARTAN 50 MG TABLET PO SCH (08:59)
[2018-01-20] MEDS: AMLODIPINE 5 MG TABLET PO SCH (08:59)
[2018-01-20] MEDS: FLUTICASONE NASAL SPRAY 50mcg EA NOSTRIL SCH (09:00)
[2018-01-20] MEDS: FERROUS SULFATE 324 MG TABLET PO SCH (09:00)
[2018-01-20 11:31] VITALS: BP 197/104; PULSE 65
--- NOTE | 2018-01-20 11:38 | Extended Care Facility Orders ---
Admission Orders Admit to:: [facility] Allergies/Adverse Reactions: Allergies nitrofurantoin Adverse Reaction (Mild, Verified 12/27/17 10:07) Hemolytic Anemia Admitting Diagnosis: Dehydration/hallucinations Admitting Physician: Karol Rivas MD Attending Physician: Karol Rivas MD Code Status: Do Not Resuscitate Anticiapted Length of Stay: 30 days or less Rehab Potential: fair Rehab Prognosis: fair Diet: Low-salt, low-fat May use Facility Protocol or Standing Orders: Yes May have flu vaccine: Yes Evaluations/Treatment: Speech, PT, OT [facility] Certification: I certify that SNF services are required to be given on an Inpatient basis because of the patients need for residential care on a continuing basis for the condition(s) for which he/she received inpatient hospital services prior to his/her transfer to the SNF. SNF inpatient care is necessary for the following reasons Indication for [facility]: Med Admininistration - Additional Information In Event of Arrest: Do Not Start CPR Resident is Aware of Diagnosis: Yes Referrals: Judith Hernandez MD [Family Provider] - 1 Week Richelle Wolfe MD [Physician] - (Keep appointment scheduled in about 2 months) Additional Orders: BLOOD PRESSURE MEDICATION ADJUSTMENTS NEEDS NURSING TO MONITOR BLOOD PRESSURE. PT NEEDS MED ADMINISTRATION HELP WELL. Please monitor for hallucinations-patient has been instructed to notify nurses whenever she has hallucinations so time and nature of hallucination can be recorded to try to identify a pattern (relationship to meals, blood pressure, time of day, etc.).
--- NOTE | 2018-01-20 11:43 | Discharge Summary ---
Discharge Information Date of admission: 01/17/18 01:03 Anticipated date of discharge: 01/20/18 Attending Physician: Karol Rivas MD Primary care physician: Judith Hernandez MD Consults: Dr. Richelle Nuñez - Discharge Diagnosis (1) Hallucinations Status: Acute (2) Hypernatremia Status: Acute (3) Dehydration Status: Acute Hallucinations Hypernatremia Dehydration Mild cognitive impairment/dementia Hypertension Coronary artery disease Hypothyroidism Paroxysmal atrial fibrillation Cataracts Chronic thrombocytopenia Mild transaminitis - Laboratory Labs: On date of admission (01/16/18) WBC 6.7, hemoglobin 12.4, sodium 151, BUN 42, creatinine 1.4, AST 48, ALT 48, alkaline phosphatase 164, TSH 2.31. Urinalysis specific gravity > 1.030 and trace ketones present. Urine drug screen negative and salicylates, acetaminophen, and alcohol nondetectable. 01/19/18 04:24 01/19/18 04:24 History of Present Illness HPI: Ms. Lund is an 87yo woman with h/o dementia, undifferentiated schizophenia, hypothyroidism, essential HTN, and poor hearing now with 01/16/2018 family found patient in her assisted living facility having set a table for 8 thinking she was hosting a dinner. She notes seeing images of people and bugs on the wall, and wires. No other pain, sob, nausea recognized. Unsure of change in medication or PO intake with her only a fair historian. She did know the month. Patient also describes auditory hallucinations including frequently hearing music playing which is generally gospel music. Objective Vital signs: Temperature 96.1 F L 01/20/18 07:54 Pulse Rate 65 01/20/18 11:10 Respiratory Rate 12 01/20/18 07:54 Blood Pressure 197/104 H 01/20/18 11:10 Pulse Oximetry 95 - RA 01/20/18 07:54 NAD, alert, pleasant Respirations nonlabored, good airflow, breath sounds clear Regular rhythm, S1-S2 Abdomen soft, nontender Oriented 3 Height/Weight/BMI: Height 1.6 m Weight 62.9 kg Body Mass Index 25.4 Hospital Course This is a general summary of the patient's hospital course. For more details refer to the complete medical record. Hospital course: 01/17/18 Patient presents with recurrent hallucinations in conjunction with mild dehydration and hypernatremia. Continue hydration. Dr. Wolfe and Dr. Nuñez have been consulted and additional records are being obtained from Dr. Canales and Dr. Hernandez to better define time course of medication changes as confusing history is present in speaking with the patient and her daughter. Both the patient and her daughter are fairly insistent that hallucinations resolve whenever the patient is hospitalized and taken off of all medications although blood pressure control is clearly inadequate without treatment. Haldol has been used in the past at low doses and is unclear if hospital interventions lead to improvement as opposed to withdrawal of home medications. Eyedrops for upcoming cataract surgery will be continued although ability to safely proceed with surgery as scheduled is unclear at present. DO NOT RESUSCITATE order written after discussion with patient's daughter/DPOA. 01/18/18 Hallucinations have improved while hospitalized; blood pressure has worsened with systolic pressures of approximately 200 on several occasions over the past 36 hours. Patient gives variable history as to whether she was taking metoprolol prior to admission-apparently discontinued medication around December [address] Canales's office but may have subsequently resumed it, possibly at half a tablet twice a day, and been taking it prior to admission. This is the same history she gives regarding Seroquel so it's unclear what was really being taken. Family is unable to clarify. Given progressive increase in blood pressure risks of not treating in a patient with known cardiac and cerebrovascular disease was discussed with the patient, her son, and her daughter. All in agreement that some treatment needs to be resumed; patient thinks lisinopril wasn't too bad and no one recalls particular side effects with amlodipine. Losartan initiated at 25 mg with first dose now. May be necessary to resume amlodipine-unclear why it was discontinued previously. Discontinue fluids when current bag is infused-sodium has normalized, creatinine improved. I have discussed my concern that patient is not safely managing medications and that she should not be responsible for medication administration in the future with her son and daughter. Findings reviewed with Dr. Nuñez who recommended minimizing medications due to patient's hypersensitivity to medications; at this time she did not feel treatment for hallucinations was necessary since they are nonthreatening but ongoing observation appropriate. She shared my concern that the patient is having difficulty managing her own medications and her regimen would optimally be managed and set up by someone else to ensure she is getting medications appropriately. 01/19/18 Mrs. Lund continues to have minor hallucinations, unclear that they ever really resolved as some of the event she describes today are reported to have occurred yesterday. Blood pressure remains significantly elevated, losartan increased to 50 mg daily this morning and amlodipine resumed at 5 mg this evening. Hydralazine when necessary for sustained systolics above 180. If hallucinations escalating will readdress with Dr. Nuñez. Flonase initiated for patient complaint of chronic cough/rhinorrhea/postnasal drip. KADIE obtained today-score 0 suggesting patient capable of living independently. Anticipate discharge to residential to do need for ongoing medication adjustment/management-possibly tomorrow. 01/20/18 Mrs. Lund was seen with her brother at the bedside today. He reminds me the patient was scheduled for cataract surgery and I've encouraged him to proceed with surgery to eliminate impaired vision as a contributed to visual hallucinations. Patient discussed auditory hallucinations more today than she has previously. Will discuss further with Dr. Wolfe to determine if EEG should be obtained as an outpatient. Patient described 2-3 visual hallucinations late yesterday afternoon and yesterday evening occurring at about 5 PM and 9:30. I've asked that she continue to record when hallucinations occur in the nature of the hallucination and bring it to nursing's attention at [facility] to monitor for any pattern that may help identify cause. Blood pressures has improved somewhat with addition of amlodipine-systolic average 140-165 overnight and no orthostatic hypotension was present this morning. In fact blood pressure raised when the patient stood. Minor elevation in AST/ALT present throughout hospital course-alkaline phosphatase has normalized. This was present during prior hospitalizations at [facility]. Hepatitis serologies were negative in November 2016. Platelet count low normal range as it has been previously. Patient is stable for discharge at this time. She'll discharged to [facility] to permit continued adjustment of medications and closely monitor blood pressure as medications are modified. This will additionally permit hallucinations to be monitored to try to establish pattern. Patient is asked to follow up with Dr. Hernandez in approximately one week. She is to keep appointment previously scheduled with Dr. Wolfe in March. Time spent with patient: greater than 35 minutes Resuscitation Status: Do Not Resuscitate Discharge Plan - Discharge Disposition Discharge Date: 01/20/18 Disposition: 03 To SN[facility] Not [facility] (SNF) *Condition: Improved Reason For Visit (Visit label in EMR): Dehydration/hallucinations - Discharge Medications *Discharge Medications: New Amlodipine [Norvasc] 5 mg PO DAILY tab Fluticasone Nasal [place] [Flonase] 2 spray EA NOSTRIL DAILY bottle Losartan [Cozaar] 50 mg PO DAILY tab Continue Propylene Glycol [Systane Balance] 1 drop EACH EYE BID [place]-3/Dha/Epa/Fish Oil [Fish Oil 1,000 mg Softgel] 1,000 mg PO DAILY Clobetasol 0.05% Cream [TEMOVATE Cream] 1 applicatio TOP BID Denosumab [Prolia] 60 mg SQ Q6M Docusate Sodium [Colace] 1 cap PO DAILY Cranberry Fruit Extract [Cranberry] 200 mg PO DAILY CALCIUM CARBONATE Chewable [Tums] 2,000 mg PO BID Cholecalciferol (Vitamin D3) [Vitamin D3] 1 cap PO DAILY cycloSPORINE [Restasis Multidose] 1 drops EACH EYE BID Levothyroxine Sodium 75 mcg PO DAILY Coxcy-N-Zkyrwowdpxwsu [Beano] 600 unit PO TID ferrous sulfate 325 mg (65 mg iron) tablet 325 mg PO DAILY tab melatonin 5 mg tablet 5 mg PO HS [place] Regular Strength 325 mg tablet 650 mg PO Q4H PRN PRN Reason: Discomfort No Action Docusate Sodium 50 mg PO BID - Discharge Packet/Instructions *Diet: low fat, low salt *Activity: as tolerates *Pain Management/Treatment: tylenol as needed *Wound Care: Not applicable Additional Instructions: 1. Please notify nursing when you have hallucinations and the nature of the hallucination or write it down on a piece of paper so you can tell urine nurses about it when they're available. 2. Urine nurses know if you are lightheaded or dizzy. *Expected Signs/Symptoms: Nothing new expected *Notify Physician if: You have increasing hallucinations, falls, dizziness *During Business Hours Contact: Nurses at [facility] *After Business Hours Contact: Same *Pending Lab/Results: No Pending Lab - Referrals/Follow Up *Referrals/Follow Up: Judith Hernandez MD [Family Provider] - 1 Week Richelle Wolfe MD [Physician] - (Keep appointment scheduled in about 2 months) - Patient Handouts Patient Handouts: Dehydration (GEN) - Dismissal Complete Discharge Instructions are:: Complete Physician Narrative - Narrative Attestation Narrative: Date: 01/20/18 Time: 1132
== END 2018-01-20 15:00 | DRG 641 ==
LOC: ED 22:47 → MED 01-17 01:03 → SUATTDRO 01-17 01:03 → MED 01-17 01:20
PROVIDERS: ADMIT Hospitalist; ATTEND Internal Medicine